=== PATIENT | male | born 1955 | race Caucasian/White ===

== ENCOUNTER 2020-06-13 17:40 | Inpatient (IN) | payer MEDICARE, OTHER, SELFPAY ==
[2020-06-13] VITALS (9 sets, daily range): BP systolic 103–192; BP diastolic 63–111; PULSE 48–130; RESP 14–18; TEMP 36.9–37.1; O2SAT 2–100; BMI 35.9
--- NOTE | 2020-06-13 18:01 | ECG_ITS ---
Test Reason : CHEST PAIN Blood Pressure : / mmHG Vent. Rate : 091 BPM Atrial Rate : 078 BPM P-R Int : 000 ms QRS Dur : 080 ms QT Int : 348 ms P-R-T Axes : 000 070 048 degrees QTc Int : 428 ms Atrial fibrillation Abnormal ECG No previous ECGs available Referred By: Generic ED Physician Electronically Signed By:HERMILO FOX MD
--- NOTE | 2020-06-13 18:01 | XR_ITS ---
EXAMINATION: XR CHEST CLINICAL INFORMATION: Chest pain COMPARISON: None TECHNIQUE: Frontal view of the chest was obtained. FINDINGS: The lungs are mildly hypoexpanded however appear clear. There is mild bronchovascular crowding. No evidence of pleural effusions, pneumothorax or pulmonary edema. Cardiac mediastinal silhouette is within normal limits for technique. The regional skeleton is intact. Degenerative changes are noted in the mid to lower thoracic spine. Visualized upper abdomen is unremarkable. Multiple tubings are noted projecting over the lower neck, recommend clinical correlation. Multiple cardiac leads and wires overlie the chest. XR/XR chest 1V IMPRESSION: Mildly hypoexpanded lungs with bronchovascular crowding. No acute pulmonary process.
--- NOTE | 2020-06-13 18:06 | ED.CHESTPAIN ---
HPI - Chest Pain General Chief Complaint: Chest Pain Stated Complaint: CP, NEW AFIB Time Seen by Provider: 06/13/20 18:04 Source: patient Mode of arrival: ambulatory Limitations: no limitations History of Present Illness HPI narrative: This is a 65-year-old male with past medical history significant for hyperlipidemia, hypertension, anxiety disorder, depression, gastroesophageal reflux disease who presents via EMS from home with complaint of chest pain. Onset today feeling like palpitation pressure in the chest. EMS found patient to be in rapid AFib with RVR he was given 324 aspirin and and transferred to the emergency room. MD complaint: chest heaviness Prior episodes: No Onset: during rest Pain radiation: none Severity: moderate Quality: tightness Relieving factors: nothing Exacerbating factors: nothing Treatment prior to arrival: aspirin Risk Factors Coronary artery disease risk factors: none Related Data Home Medications Medication Instructions Recorded Confirmed bupropion HCl 1 tab PO DAILY 06/13/20 06/13/20 omeprazole 1 cap PO DAILY 06/13/20 06/13/20 propranolol 1 cap PO DAILY 06/13/20 06/13/20 simvastatin 1 tab PO DAILY 06/13/20 06/13/20 tizanidine 1 tab PO BID 06/13/20 06/13/20 Allergies Allergy/AdvReac Type Severity Reaction Status Date / Time metronidazole [From Flagyl] AdvReac Confusion Verified 06/13/20 17:59 Review of Systems Review of Systems: Constitutional: No Weight loss, No Fever, No Chills, No Night Sweats, No Fatigue, No Malaise ENT/Mouth: No Hearing loss, No Ear Pain, No Nasal Congestion, No Sinus Pain, No Hoarseness, No sore throat, No Rhinorrhea, No Swallowing Difficulty Eyes: No Eye Pain, No Swelling, No Redness, No Foreign Body, No Discharge, No Vision Changes Cardiovascular: + Chest Pain, + SOB, No Dyspnea on Exertion, No Orthopnea, No Edema, No Palpitations Respiratory: No Cough, No Sputum, No Wheezing, No Smoke Exposure, No Dyspnea Gastrointestinal: No Nausea, No Vomiting, No Diarrhea, No Constipation, No abdominal Pain, No Hematochezia, No Melena Genitourinary: no irregular bleeding, No Dysuria, No Urinary Frequency, No Hematuria, No Urinary Incontinence, No Urgency, No Flank Pain Musculoskeletal: No joint pain, No Myalgias, No Joint Swelling Skin: No Skin Lesions, No rash Neuro: No Weakness, No Numbness, No Paresthesias, No Loss of Consciousness, No Dizziness, No Headache Psych: No Social Issues Heme/Lymph: No Bruising, No Bleeding,No Lymphadenopathy Endocrine: No Polyuria, No Polydipsia, No Temperature Intolerance [facility] Past Medical History Medical History Diverticulitis HTN (hypertension) Social History Social History Alcohol intake: never Smoking Status: Never smoker Use of substances other than those prescribed or required for medical reasons: Yes Substance Use Type: Marijuana Substance Use Frequency: Daily Advance Directives: No Advance Directives Information Provided: No Physical Exam Vital Signs: Vital Signs: Last Vital Signs Temp 98.7 F 06/13/20 17:48 Pulse 60 06/13/20 20:00 Resp 14 06/13/20 20:00 BP 119/63 06/13/20 20:00 Pulse Ox 97 06/13/20 20:00 Body Mass Index 35.9 Reviewed Const: General: cooperative and healthy appearing; No acute distress or intoxicated appearing Nutritional Appearance: obese Orientation/consciousness: patient oriented x3 HENMT: Head: Yes normal to inspection Ears: hearing grossly normal bilaterally Eyes: General: appearance normal, both eyes and all related structures Visual Abernathy: normal visual abernathy by confrontation Neck: Neck: Yes normal visual inspection and No tender Thyroid: Thyroid normal Chest: Chest palpation & inspection: normal inspection of the chest Resp: Effort & Inspection: normal respiratory effort Cardio: Jugular venous distension: no JVD Rhythm: abnormal rhythm (AFib with RVR rate varying from 120-150) GI: Inspection: Yes normal to inspection Palpation (GI): Soft to palpation Percussion: Yes normal to percussion Auscultation: normal bowel sounds : General: Yes no CVA tenderness Back/Spine/Pelvis: Back: no CVA tenderness Skin: General skin exam: no rashes or lesions noted Neuro: General: patient oriented x3 Extrem: General: Yes normal to inspection Course Course Course Narrative: 65-year-old male with above history presenting with complaint of chest pain that is described as pressure-like with palpitation type sensation in the chest found to be in rapid AFib with RVR rate varying from 120 to 150s. He was given 324 aspirin by EMS and Zofran for nausea. Upon arrival AFib with RVR varying. Will give 5 mg of metoprolol and check labs including EKG, electrolytes for derangement, thyroid, D-dimer and COVID-19. Reevaluation(s) Reevaluation #1: 20 minutes after metoprolol does break sterile varying given Cardizem 10 mg IV and subsequently started on drip. Reevaluation #2: CBC with slight leukocytosis 12.8 without any evidence of infectious process. D-dimer negative less than 200. BNP negative. Troponin initial 16. EKG AFib with nonspecific findings. Otherwise magnesium within normal limits. Renal function at baseline. Sodium/potassium within normal limits. Rate better controlled on Cardizem drip. COVID-19 pending. Chest x-ray negative. Plan for admission. Reevaluation #3: About 1 hour on the Cardizem drip patient converted into normal sinus rhythm EKG shows normal sinus rhythm with rate of 64, no ectopy. No acute ST segment changes. Consultations Consultation #1: Case discussed with hospitalist Dr. Mai for admission. MDM - Chest Pain Medical Records Data Attestation: I reviewed the patient's medical records. Lab Data Attestation: I reviewed the patient's lab results. Result diagrams: 06/13/20 18:34 06/13/20 18:34 Labs: Lab Results 06/13/20 06/13/20 06/13/20 Range/Units 18:34 18:34 18:34 WBC 12.8 H (4.8-10.8) X10*3/uL RBC 5.46 (4.60-5.80) X10*6/uL Hgb 16.5 (14.0-18.0) g/dl Hct 49.8 (42-52) % MCV 91.2 (80-98) fL MCH 30.2 (27.0-33.0) pg MCHC 33.1 (31.0-36.0) g/dl RDW 12.9 (11.0-16.0) % Plt Count 234 (160-400) X10*3/uL MPV 10.4 (9.4-12.4) fL Immature Gran % (Auto) 0.4 (0.0-0.4) % Neut % (Auto) 82.7 H (45-73) % Lymph % (Auto) 9.1 L (20-40) % [place] % (Auto) 4.5 (2-11) % Eos % (Auto) 2.9 (0-4) % Baso % (Auto) 0.4 (0-2) % Lymph # (Auto) 1.2 (1.2-4.9) X10*3/uL [place] # (Auto) 0.6 (0.1-1.2) X10*3/uL Eos # (Auto) 0.4 (0.0-0.4) X10*3/uL Baso # (Auto) 0.1 (0.0-0.2) X10*3/uL Abs Immat Gran (auto) 0.05 H (0.00-0.03) X10*3/uL Absolute Neuts (auto) 10.5 H (2.0-8.3) X10*3/uL Absolute Nucleated RBC 0.000 (0.0-0.012) X10*3/uL Nucleated RBC % (auto) 0.0 (0.0-0.2) /100WBC PT (10.8-13.0) SEC INR (0.9-1.1) APTT (24.1-38.0) SEC D-Dimer NG/ML Hold Blue Top SEE NOTE Sodium 141 (135-145) mmol/L Potassium 3.9 (3.3-5.1) mmol/l Chloride 102 (96-108) mmol/L Carbon Dioxide 30 H (22-29) mmol/L Anion Gap 13 (12-20) BUN 21 H (9-16) mg/dL Creatinine 1.42 H (0.5-1.4) mg/dL Estim Creat Clear Calc 65.4 Estimated GFR 50 Random Glucose 125 H (60-115) mg/dL Calcium 9.1 (8.4-10.2) mg/dL Magnesium (1.6-2.6) mg/dL Troponin I High Sens (<3.5-35.0) ng/L B-Natriuretic Peptide (<100) pg/mL TSH (0.32-4.0) uIU/mL Coronavirus (PCR) (Negative) Influenza Type A (PCR) (Negative) Influenza Type B (PCR) (Negative) RSV RNA Qual (PCR) (Negative) 06/13/20 06/13/20 06/13/20 Range/Units 18:34 18:34 18:34 WBC (4.8-10.8) X10*3/uL RBC (4.60-5.80) X10*6/uL Hgb (14.0-18.0) g/dl Hct (42-52) % MCV (80-98) fL MCH (27.0-33.0) pg MCHC (31.0-36.0) g/dl RDW (11.0-16.0) % Plt Count (160-400) X10*3/uL MPV (9.4-12.4) fL Immature Gran % (Auto) (0.0-0.4) % Neut % (Auto) (45-73) % Lymph % (Auto) (20-40) % [place] % (Auto) (2-11) % Eos % (Auto) (0-4) % Baso % (Auto) (0-2) % Lymph # (Auto) (1.2-4.9) X10*3/uL [place] # (Auto) (0.1-1.2) X10*3/uL Eos # (Auto) (0.0-0.4) X10*3/uL Baso # (Auto) (0.0-0.2) X10*3/uL Abs Immat Gran (auto) (0.00-0.03) X10*3/uL Absolute Neuts (auto) (2.0-8.3) X10*3/uL Absolute Nucleated RBC (0.0-0.012) X10*3/uL Nucleated RBC % (auto) (0.0-0.2) /100WBC PT 12.2 (10.8-13.0) SEC INR 1.0 (0.9-1.1) APTT 34.6 (24.1-38.0) SEC D-Dimer < 200 NG/ML Hold Blue Top Sodium (135-145) mmol/L Potassium (3.3-5.1) mmol/l Chloride (96-108) mmol/L Carbon Dioxide (22-29) mmol/L Anion Gap (12-20) BUN (9-16) mg/dL Creatinine (0.5-1.4) mg/dL Estim Creat Clear Calc Estimated GFR Random Glucose (60-115) mg/dL Calcium (8.4-10.2) mg/dL Magnesium 1.8 (1.6-2.6) mg/dL Troponin I High Sens 16.0 (<3.5-35.0) ng/L B-Natriuretic Peptide (<100) pg/mL TSH 2.20 (0.32-4.0) uIU/mL Coronavirus (PCR) (Negative) Influenza Type A (PCR) (Negative) Influenza Type B (PCR) (Negative) RSV RNA Qual (PCR) (Negative) 06/13/20 06/13/20 06/13/20 Range/Units 18:34 19:36 19:56 WBC (4.8-10.8) X10*3/uL RBC (4.60-5.80) X10*6/uL Hgb (14.0-18.0) g/dl Hct (42-52) % MCV (80-98) fL MCH (27.0-33.0) pg MCHC (31.0-36.0) g/dl RDW (11.0-16.0) % Plt Count (160-400) X10*3/uL MPV (9.4-12.4) fL Immature Gran % (Auto) (0.0-0.4) % Neut % (Auto) (45-73) % Lymph % (Auto) (20-40) % [place] % (Auto) (2-11) % Eos % (Auto) (0-4) % Baso % (Auto) (0-2) % Lymph # (Auto) (1.2-4.9) X10*3/uL [place] # (Auto) (0.1-1.2) X10*3/uL Eos # (Auto) (0.0-0.4) X10*3/uL Baso # (Auto) (0.0-0.2) X10*3/uL Abs Immat Gran (auto) (0.00-0.03) X10*3/uL Absolute Neuts (auto) (2.0-8.3) X10*3/uL Absolute Nucleated RBC (0.0-0.012) X10*3/uL Nucleated RBC % (auto) (0.0-0.2) /100WBC PT (10.8-13.0) SEC INR (0.9-1.1) APTT (24.1-38.0) SEC D-Dimer NG/ML Hold Blue Top Sodium (135-145) mmol/L Potassium (3.3-5.1) mmol/l Chloride (96-108) mmol/L Carbon Dioxide (22-29) mmol/L Anion Gap (12-20) BUN (9-16) mg/dL Creatinine (0.5-1.4) mg/dL Estim Creat Clear Calc Estimated GFR Random Glucose (60-115) mg/dL Calcium (8.4-10.2) mg/dL Magnesium (1.6-2.6) mg/dL Troponin I High Sens 26.0 D (<3.5-35.0) ng/L B-Natriuretic Peptide 49 (<100) pg/mL TSH (0.32-4.0) uIU/mL Coronavirus (PCR) NEGATIVE (Negative) Influenza Type A (PCR) NEGATIVE (Negative) Influenza Type B (PCR) NEGATIVE (Negative) RSV RNA Qual (PCR) NEGATIVE (Negative) ECG Data ECG #1: Interpretation: EKG 1. Atrial fibrillation rate [address] segment QT interval within normal limits. EKG 2. Normal sinus rhythm Rate 64 MO interval within normal limits QT/QTC within normal limits. No acute ST segment changes. Scores Additional Scores CHADS2 score; 1 : Score: 1 Comment: 1 points Intermediate risk of thromboembolic event. 2.8% risk of event per year if no coumadin. The adjusted stroke rate was the expected stroke rate per 100 person-years derived from the multivariable model assuming that aspirin was not taken Discharge Plan Discharge Clinical Impression: Atrial fibrillation with rapid ventricular response Patient Disposition: Admitted As Inpatient Prescriptions: No Action bupropion HCl 150 mg tablet sustained-release 12 hr 1 tab PO DAILY RF: 0 tizanidine 4 mg tablet 1 tab PO BID RF: 0 simvastatin 40 mg tablet 1 tab PO DAILY RF: 0 omeprazole 20 mg capsule,delayed release(DR/EC) 1 cap PO DAILY RF: 0 propranolol 120 mg capsule,extended release 24 hr 1 cap PO DAILY RF: 0
[2020-06-13] MEDS: Metoprolol Tartrate 5 MG/5 ML VIAL IVPUSH (18:13)
[2020-06-13 18:40] LABS: MANUAL DIFF FLAG NO
[2020-06-13 18:43] LABS: Basophils Absolute Auto 0.1 X10*3/uL (0.0-0.2); Basophils Percent Auto 0.4 % (0-2); Eosinophils Absolute Auto 0.4 X10*3/uL (0.0-0.4); Eosinophils Percent Auto 2.9 % (0-4); Hematocrit 49.8 % (42-52); Hemoglobin 16.5 g/dl (14.0-18.0); Imm Gran Abs Auto 0.05 X10*3/uL (0.00-0.03); Imm Gran Pct Auto 0.4 % (0.0-0.4); Lymphocytes Absolute Auto 1.2 X10*3/uL (1.2-4.9); Lymphocytes Percent Auto 9.1 % (20-40); Mean Corpuscular HGB Conc 33.1 g/dl (31.0-36.0); Mean Corpuscular Hemoglobin 30.2 pg (27.0-33.0); Mean Corpuscular Volume 91.2 fL (80-98); Mean Platelet Volume 10.4 fL (9.4-12.4); Monocytes Absolute Auto 0.6 X10*3/uL (0.1-1.2); Monocytes Percent Auto 4.5 % (2-11); Neutrophils Absolute Auto 10.5 X10*3/uL (2.0-8.3); Neutrophils Percent Auto 82.7 % (45-73); Platelet Count 234 X10*3/uL (160-400); Red Blood Count 5.46 X10*6/uL (4.60-5.80); Red Cell Distribution Width 12.9 % (11.0-16.0); White Blood Count 12.8 X10*3/uL (4.8-10.8)
[2020-06-13] MEDS: Morphine Sulfate 4 MG/ML CARTRIDGE IVPUSH (18:43)
[2020-06-13] MEDS: dilTIAZem HCL 50 MG/10 ML VIAL 20 MG IVPUSH (18:44)
[2020-06-13] MEDS: dilTIAZem HCL 125 MG in 0.9 % Sodium Chloride 100 ML 10 MG IVCONT (18:45)
[2020-06-13 18:52] LABS: Prothrombin Time 12.2 SEC (10.8-13.0)
[2020-06-13 18:55] LABS: D Dimer < 200 NG/ML; Partial Thromboplastin Time 34.6 SEC (24.1-38.0)
[2020-06-13 19:03] LABS: Anion Gap 13 (12-20); Blood Urea Nitrogen 21 mg/dL (9-16); Calcium 9.1 mg/dL (8.4-10.2); Carbon Dioxide 30 mmol/L (22-29); Chloride 102 mmol/L (96-108); Creatinine Clr Calc Pharmacy 65.4; Estimated Glomerular Filt Rate 50; Glucose Random 125 mg/dL (60-115); Potassium 3.9 mmol/l (3.3-5.1); Sodium 141 mmol/L (135-145)
[2020-06-13 19:04] LABS: Magnesium 1.8 mg/dL (1.6-2.6)
[2020-06-13 19:10] LABS: B Type Natriuretic Peptide 49 pg/mL (<100)
--- NOTE | 2020-06-13 19:31 | PC.NURSE ---
Patient's heart rate in the 60's and 50's . MD aware and diltiazem drip held.
[2020-06-13 20:20] LABS: Influenza A PCR NEGATIVE (Negative); Influenza B PCR NEGATIVE (Negative); Resp Syncy Virus RNA Qual PCR NEGATIVE (Negative); SARS COV2 PCR INHOUSE NEGATIVE (Negative)
--- NOTE | 2020-06-13 20:46 | P.HPHOSP_ITS ---
History of Present Illness Date of Service: 06/13/20 Chief Complaint: Chest pain With past medical history of hypertension, hyperlipidemia, anxiety and depression, GERD and diverticulitis who presents to the hospital with complaints of chest pain. Patient reports chest pain is midsternal, pressure-like, 8/10, started around 5:00 p.m., radiating to the upper middle back, associated with shortness of breath, and chest flutters. He denies having any previous similar episode, reports being at rest when this occurred. On arrival to the ED patient's vitals are significant for a heart rate that ranged from 100-122, blood pressure 175/99, respiratory rate of 18, satting 97% on 2 L of O2 Labs are significant for WBC count of 12.8, hemoglobin of 16.5, hematocrit 49.8,BMP significant for sodium of 141 comes potassium 3.9, BUN of 21, creatinine of 1.4 which is around his baseline, TSH of 2.2, BNP of 49, troponin of 16 that increased to 26 and repeat Patient was started on Cardizem drip in the ED but converted to sinus rhythm with heart rate dropping to 60 after an hour of this. Past medical history: Hypertension, hyperlipidemia, GERD, anxiety and depression, diverticulitis Past surgical history: Colectomy secondary to diverticular perforation Family history: Denies Social history: Comes from home, independent, denies any tobacco alcohol or illicit drugs Review of Systems Review of Systems: Yes all other systems are reviewed and are negative [facility] Medical History (Updated 06/14/20 @ 11:40 by Eric Perkins MD) Anxiety and depression Diverticulitis HTN (hypertension) Hyperlipidemia Paroxysmal atrial fibrillation Social History Household Members: Spouse Housing: House Alcohol intake: never Smoking Status: Former smoker Substance Use Type: Marijuana service: No Meds Allergies Allergy/AdvReac Type Severity Reaction Status Date / Time metronidazole [From Flagyl] AdvReac Confusion Verified 06/13/20 17:59 Home Medications Medication Instructions Recorded Confirmed Type bupropion HCl 1 tab PO DAILY 06/13/20 06/13/20 History omeprazole 1 cap PO DAILY 06/13/20 06/13/20 History propranolol 1 cap PO DAILY 06/13/20 06/13/20 History simvastatin 1 tab PO DAILY 06/13/20 06/13/20 History tizanidine 1 tab PO BID 06/13/20 06/13/20 History Physical Exam Vital Signs and Narrative: Vital Signs: Last Vital Signs Temp 98.7 F 06/13/20 17:48 Pulse 60 06/13/20 20:00 Resp 14 06/13/20 20:00 BP 119/63 06/13/20 20:00 Pulse Ox 97 06/13/20 20:00 Body Mass Index 35.9 Const: General: cooperative and no acute distress Orientation/consciousness: patient oriented x3 Eyes: General: appearance normal, both eyes and all related structures Pupils: Equal, round and reactive pupils present Resp: Effort & Inspection: normal respiratory effort and able to speak in complete sentences Cardio: Rate: regular rate Rhythm: regular rhythm GI: Palpation (GI): Soft to palpation Auscultation: normal bowel sounds Skin: General skin exam: no rashes or lesions noted Neuro: General: patient oriented x3 Cranial nerves: Yes Equal, round and reactive pupils present Cognition (Neuro): normal cognition Extrem: General: Yes normal to inspection and Yes no pedal edema Results Labs CBC and Chem 7: 06/14/20 04:28 06/14/20 04:28 Labs: Laboratory Results - last 24 hr 06/13/20 06/13/20 06/13/20 18:34 18:34 18:34 MCV 91.2 MCH 30.2 MCHC 33.1 RDW 12.9 Plt Count 234 MPV 10.4 Immature Gran % (Auto) 0.4 Neut % (Auto) 82.7 H Lymph % (Auto) 9.1 L [place] % (Auto) 4.5 Eos % (Auto) 2.9 Baso % (Auto) 0.4 Lymph # (Auto) 1.2 [place] # (Auto) 0.6 Eos # (Auto) 0.4 Baso # (Auto) 0.1 Abs Immat Gran (auto) 0.05 H Absolute Neuts (auto) 10.5 H Absolute Nucleated RBC 0.000 Nucleated RBC % (auto) 0.0 PT INR APTT D-Dimer Hold Blue Top SEE NOTE Anion Gap 13 Estim Creat Clear Calc 65.4 Estimated GFR 50 Random Glucose 125 H Calcium 9.1 Magnesium Troponin I High Sens B-Natriuretic Peptide TSH Coronavirus (PCR) Influenza Type A (PCR) Influenza Type B (PCR) RSV RNA Qual (PCR) 06/13/20 06/13/20 06/13/20 18:34 18:34 18:34 MCV MCH MCHC RDW Plt Count MPV Immature Gran % (Auto) Neut % (Auto) Lymph % (Auto) [place] % (Auto) Eos % (Auto) Baso % (Auto) Lymph # (Auto) [place] # (Auto) Eos # (Auto) Baso # (Auto) Abs Immat Gran (auto) Absolute Neuts (auto) Absolute Nucleated RBC Nucleated RBC % (auto) PT 12.2 INR 1.0 APTT 34.6 D-Dimer < 200 Hold Blue Top Anion Gap Estim Creat Clear Calc Estimated GFR Random Glucose Calcium Magnesium 1.8 Troponin I High Sens 16.0 B-Natriuretic Peptide TSH 2.20 Coronavirus (PCR) Influenza Type A (PCR) Influenza Type B (PCR) RSV RNA Qual (PCR) 06/13/20 06/13/20 06/13/20 18:34 19:36 19:56 MCV MCH MCHC RDW Plt Count MPV Immature Gran % (Auto) Neut % (Auto) Lymph % (Auto) [place] % (Auto) Eos % (Auto) Baso % (Auto) Lymph # (Auto) [place] # (Auto) Eos # (Auto) Baso # (Auto) Abs Immat Gran (auto) Absolute Neuts (auto) Absolute Nucleated RBC Nucleated RBC % (auto) PT INR APTT D-Dimer Hold Blue Top Anion Gap Estim Creat Clear Calc Estimated GFR Random Glucose Calcium Magnesium Troponin I High Sens 26.0 D B-Natriuretic Peptide 49 TSH Coronavirus (PCR) NEGATIVE Influenza Type A (PCR) NEGATIVE Influenza Type B (PCR) NEGATIVE RSV RNA Qual (PCR) NEGATIVE Imaging Radiologist's Impressions: Impressions Chest X-Ray 06/13/20 18:01 IMPRESSION: Mildly hypoexpanded lungs with bronchovascular crowding. No acute pulmonary process. Assessment and Plan (1) Atrial fibrillation with rapid ventricular response: Status: Acute (2) Chest pain: Qualifiers: Chest pain type: unspecified Qualified Code(s): R07.9 - Chest pain, unspecified Status: Acute (3) HTN (hypertension): Qualifiers: Hypertension type: essential hypertension Qualified Code(s): I10 - Essential (primary) hypertension Status: Acute (4) Hyperlipidemia: Qualifiers: Hyperlipidemia type: unspecified Qualified Code(s): E78.5 - Hyperlipidemia, unspecified Status: Acute This is a 65-year-old male with past medical history of hypertension who presents to the hospital with chest pain found to have AFib with RVR # AFib with RVR - new onset, has no history of - chads Vasc of 1 - found to have a heart rate of 122 irregular on arrival - troponin not significantly elevated, no EKG changes suggestive of ACS Plan: - patient on propranolol for hypertension, will stop this medication and start start him on on metoprolol 12.5 b.i.d. - echocardiogram - discussed with patient possible need for anticoagulation, and he is agreeable if necessary - consult cardiology # chest pain - no EKG changes suggestive of ACS - has no significant elevated high sensitivity troponin Plan: - will consult Cardiology, admit to telemetry # hypertension - stable -on propranolol, will stop it, start him on lisinopril # anxiety and depression - continue Wellbutrin # hyperlipidemia - continue statin DVT prophylaxis Lovenox
--- NOTE | 2020-06-13 23:02 | PC.NURSE ---
Telemetry floor called to give report. RN just coming on shift and will call when she is done getting report
--- NOTE | 2020-06-13 23:49 | PC.NURSE ---
Report called to floor and given to Valentina RN assuming care of patient on telemetry
[2020-06-14 00:44] VITALS: BP 166/80; PULSE 51; RESP 18; TEMP 36.6; O2SAT 98
[2020-06-14] MEDS: TiZANidine HCL 4 MG TABLET PO ×2 (01:03→08:39)
[2020-06-14] MEDS: 0.9 % Sodium Chloride Flush 3 ML SYRINGE IVFLUSH ×2 (01:04→08:40)
[2020-06-14] MEDS: Enoxaparin Sodium 40 MG/0.4 ML SYRINGE SUBCUT (01:05)
[2020-06-14 04:00] VITALS: BP 150/78; PULSE 54; RESP 18; TEMP 36.4; O2SAT 98
[2020-06-14] MEDS: Omeprazole 20 MG CAPSULE.DR PO (05:56)
[2020-06-14 06:00] VITALS: BMI 37.5
[2020-06-14 06:00] LABS: MANUAL DIFF FLAG NO
[2020-06-14 06:06] LABS: Basophils Absolute Auto 0.1 X10*3/uL (0.0-0.2); Basophils Percent Auto 0.5 % (0-2); Eosinophils Absolute Auto 0.4 X10*3/uL (0.0-0.4); Hemoglobin 15.8 g/dl (14.0-18.0); Imm Gran Abs Auto 0.04 X10*3/uL (0.00-0.03); Imm Gran Pct Auto 0.4 % (0.0-0.4); Lymphocytes Absolute Auto 1.5 X10*3/uL (1.2-4.9); Lymphocytes Percent Auto 16.2 % (20-40); Mean Corpuscular HGB Conc 32.2 g/dl (31.0-36.0); Mean Corpuscular Volume 93.2 fL (80-98); Mean Platelet Volume 10.8 fL (9.4-12.4); Monocytes Absolute Auto 0.8 X10*3/uL (0.1-1.2); Monocytes Percent Auto 8.3 % (2-11); Neutrophils Absolute Auto 6.5 X10*3/uL (2.0-8.3); Neutrophils Percent Auto 70.6 % (45-73); Platelet Count 206 X10*3/uL (160-400); Red Blood Count 5.26 X10*6/uL (4.60-5.80); White Blood Count 9.2 X10*3/uL (4.8-10.8)
[2020-06-14 06:32] LABS: Anion Gap 14 (12-20); Blood Urea Nitrogen 20 mg/dL (9-16); Calcium 8.5 mg/dL (8.4-10.2); Carbon Dioxide 23 mmol/L (22-29); Chloride 110 mmol/L (96-108); Creatinine Clr Calc Pharmacy 76.6; Estimated Glomerular Filt Rate 59; Glucose Random 87 mg/dL (60-115); Potassium 4.5 mmol/l (3.3-5.1); Sodium 142 mmol/L (135-145)
[2020-06-14 08:00] VITALS: BP 188/96; PULSE 48; RESP 18; TEMP 37.1; O2SAT 96
[2020-06-14] MEDS: lisinopriL 5 MG TABLET PO (08:39)
[2020-06-14] MEDS: buPROPion HCl XL 150 MG TAB.ER.24H PO (08:39)
--- NOTE | 2020-06-14 10:36 | ECG_ITS ---
Test Reason : CHEST PAIN Blood Pressure : / mmHG Vent. Rate : 064 BPM Atrial Rate : 064 BPM P-R Int : 158 ms QRS Dur : 082 ms QT Int : 398 ms P-R-T Axes : 051 071 063 degrees QTc Int : 410 ms Normal sinus rhythm Normal ECG When compared with ECG of 13-JUN-2020 18:19, Sinus rhythm has replaced Atrial fibrillation Referred By: Eric Perkins Electronically Signed By:ERIC PERKINS MD
[2020-06-14] MEDS: Propranolol HCL LA 60 MG CAP.SA.24H 120 MG PO ×2 (10:52→10:56)
--- NOTE | 2020-06-14 10:54 | P.DS_ITS ---
DS: Providers Provider Date of admission: 06/13/20 21:28 Primary care physician: Jairo Bartlett MD Consults: 06/14/20 00:07 Consult to Cardiology Routine Consulting Provider: Eric Perkins Reason for consultation: new onset A.fob, recommendation on AC Has provider been notified: No DS: Diagnosis Discharge Diagnosis (1) Atrial fibrillation with rapid ventricular response: Status: Acute (2) Chest pain: Status: Acute (3) HTN (hypertension): Status: Acute (4) Hyperlipidemia: Status: Acute DS: Medications Discharge Medications Home Medications: Home Medications Medication Instructions Recorded Confirmed bupropion HCl 1 tab PO DAILY 06/13/20 06/13/20 omeprazole 1 cap PO DAILY 06/13/20 06/13/20 propranolol 1 cap PO DAILY 06/13/20 06/13/20 simvastatin 1 tab PO DAILY 06/13/20 06/13/20 tizanidine 1 tab PO BID 06/13/20 06/13/20 Previous Rx's Medication Instructions Recorded rivaroxaban [Xarelto] 20 mg PO DAILY@1700 #30 tab 06/14/20 DS: Summary Hospital Course Hospital Course: pateint was admitted for new onset afib with rvr. he converted to NSR/sinus myesha, after cardizem. he was seen by cardiology who recommended continuing propanolol, starting xarelto, and following up outpatient for work up. Time Spent with Patient Time attestation: Total time spent providing and/or coordinating discharge services: Physical Exam Vital Signs: Vital Signs: Last Vital Signs Temp 98.7 F 06/14/20 08:00 Pulse 48 L 06/14/20 08:00 Resp 18 06/14/20 08:00 BP 188/96 H 06/14/20 08:00 Pulse Ox 96 06/14/20 08:00 Body Mass Index 37.5 General: AO X 3, no acute distress Resp: CTA bilateral CVS: S1,S2,RRR GI: soft, non tender, non distended Neuro: motor grossly intact Psych: appropriate affect DS: Data Data Completed and Pending Labs on day of discharge: 06/13/20 18:01 ECG 12 lead EKG Stat EKG Documentation DIRECTED XR chest 1V Stat 06/13/20 18:08 Metoprolol Tartrate [Lopressor] 5 mg IVPUSH ONCE ONE 06/13/20 18:31 Morphine Sulfate 4 mg IVPUSH ONCE ONE 06/13/20 18:32 dilTIAZem HCL [Cardizem] 20 mg IVPUSH ONCE ONE 06/13/20 18:34 B Type Natriuretic Peptide Stat Basic Metabolic Panel Stat Complete Blood Count Auto Diff Stat D Dimer Stat Hold Lt Blue - Possible Coag Stat Magnesium Stat Partial Thromboplastin Time Stat Prothrombin Time INR Stat Thyroid Stimulating Hormone Stat Troponin-I High Sensitivity Stat 06/13/20 18:38 dilTIAZem HCL [Cardizem] 125 mg IVCONT .STK-MED ONE 06/13/20 19:36 SARS-CoV2/FLU/RSV Stat 06/13/20 19:56 Troponin-I High Sensitivity Stat 06/13/20 20:39 Transfer Order Routine 06/14/20 01:00 Enoxaparin Sodium [Lovenox] 40 mg SUBCUT Q24H 06/14/20 04:28 Basic Metabolic Panel Routine Complete Blood Count Auto Diff Routine Laboratory Last Values WBC 9.2 X10*3/uL (4.8-10.8) 06/14/20 04:28 RBC 5.26 X10*6/uL (4.60-5.80) 06/14/20 04:28 Hgb 15.8 g/dl (14.0-18.0) 06/14/20 04:28 Hct 49.0 % (42-52) 06/14/20 04:28 MCV 93.2 fL (80-98) 06/14/20 04:28 MCH 30.0 pg (27.0-33.0) 06/14/20 04:28 MCHC 32.2 g/dl (31.0-36.0) 06/14/20 04:28 RDW 13.0 % (11.0-16.0) 06/14/20 04:28 Plt Count 206 X10*3/uL (160-400) 06/14/20 04:28 MPV 10.8 fL (9.4-12.4) 06/14/20 04:28 Immature Gran % (Auto) 0.4 % (0.0-0.4) 06/14/20 04:28 Neut % (Auto) 70.6 % (45-73) 06/14/20 04:28 Lymph % (Auto) 16.2 % (20-40) L 06/14/20 04:28 [place] % (Auto) 8.3 % (2-11) 06/14/20 04:28 Eos % (Auto) 4.0 % (0-4) 06/14/20 04:28 Baso % (Auto) 0.5 % (0-2) 06/14/20 04:28 Lymph # (Auto) 1.5 X10*3/uL (1.2-4.9) 06/14/20 04:28 [place] # (Auto) 0.8 X10*3/uL (0.1-1.2) 06/14/20 04:28 Eos # (Auto) 0.4 X10*3/uL (0.0-0.4) 06/14/20 04:28 Baso # (Auto) 0.1 X10*3/uL (0.0-0.2) 06/14/20 04:28 Abs Immat Gran (auto) 0.04 X10*3/uL (0.00-0.03) H 06/14/20 04:28 Absolute Neuts (auto) 6.5 X10*3/uL (2.0-8.3) 06/14/20 04:28 Absolute Nucleated RBC 0.000 X10*3/uL (0.0-0.012) 06/14/20 04:28 Nucleated RBC % (auto) 0.0 /100WBC (0.0-0.2) 06/14/20 04:28 PT 12.2 SEC (10.8-13.0) 06/13/20 18:34 INR 1.0 (0.9-1.1) 06/13/20 18:34 APTT 34.6 SEC (24.1-38.0) 06/13/20 18:34 D-Dimer < 200 NG/ML 06/13/20 18:34 Hold Blue Top SEE NOTE 06/13/20 18:34 Sodium 142 mmol/L (135-145) 06/14/20 04:28 Potassium 4.5 mmol/l (3.3-5.1) 06/14/20 04:28 Chloride 110 mmol/L (96-108) H 06/14/20 04:28 Carbon Dioxide 23 mmol/L (22-29) 06/14/20 04:28 Anion Gap 14 (12-20) 06/14/20 04:28 BUN 20 mg/dL (9-16) H 06/14/20 04:28 Creatinine 1.24 mg/dL (0.5-1.4) 06/14/20 04:28 Estim Creat Clear Calc 76.6 06/14/20 04:28 Estimated GFR 59 06/14/20 04:28 Random Glucose 87 mg/dL (60-115) 06/14/20 04:28 Calcium 8.5 mg/dL (8.4-10.2) D 06/14/20 04:28 Magnesium 1.8 mg/dL (1.6-2.6) 06/13/20 18:34 Troponin I High Sens 26.0 ng/L (<3.5-35.0) D 06/13/20 19:56 B-Natriuretic Peptide 49 pg/mL (<100) 06/13/20 18:34 TSH 2.20 uIU/mL (0.32-4.0) 06/13/20 18:34 Coronavirus (PCR) NEGATIVE (Negative) 06/13/20 19:36 Influenza Type A (PCR) NEGATIVE (Negative) 06/13/20 19:36 Influenza Type B (PCR) NEGATIVE (Negative) 06/13/20 19:36 RSV RNA Qual (PCR) NEGATIVE (Negative) 06/13/20 19:36 Discharge Plan Discharge Patient Disposition: Home, Self-Care Referrals: Jairo Bartlett MD [Primary Care Provider] - Discharge Medications: New Xarelto 20 mg Tablet 20 mg PO DAILY@1700 Qty: 30 RF: 0 Continued bupropion HCl 150 mg tablet sustained-release 12 hr 1 tab PO DAILY RF: 0 tizanidine 4 mg tablet 1 tab PO BID RF: 0 simvastatin 40 mg tablet 1 tab PO DAILY RF: 0 omeprazole 20 mg capsule,delayed release(DR/EC) 1 cap PO DAILY RF: 0 propranolol 120 mg capsule,extended release 24 hr 1 cap PO DAILY RF: 0 Discharge Orders: Discharge Order (Routine); Ordered 06/14/20 Ordered By: Jayant Herzog Activity on Discharge: As tolerated Visit Report Forms: Patient Portal Discharge page Care Plan Goals: manage afib Health Concerns: afib Plan of Treatment: started on xarelto, follow up with cardiology for work up
[2020-06-14] MEDS: Rivaroxaban 20 MG TABLET PO (10:56)
--- NOTE | 2020-06-14 11:04 | PC.NURSE ---
inderol given per Dr Perkins. Also started on xarelto.
--- NOTE | 2020-06-14 11:05 | MHC.CM.PN ---
MET WITH PT DC PLAN HOPME NO SERVCEIS PT HAS OWN TRANSPORT HOME
--- NOTE | 2020-06-14 11:34 | PM.CNCAR ---
History of Present Illness History of Present Illness Date of Service: 06/14/20 Consult reason: chest pain and atrial fibrillation Chief complaint: New onset A fib Narrative: Thank you for inviting us on consult on Gene for new onset atrial fibrillation. He is a pleasant active 65-year-old man with prior history of hypertension, hyperlipidemia. He came to the hospital, yesterday while he was walking to get his medication which is forgot to take today prior for hypertension hyperlipidemia he started noticing chest tightness and palpitations. He has had these symptoms but for short duration the past never chest tightness but palpitations. He has not been worked up for anything. Yesterday the symptoms did not relieve and he came to the hospital. Was noted to be in atrial fibrillation with rapid ventricular response. Troponins were within normal limits and BNP was within normal limits. Overnight he converted back to sinus rhythm. He feels a lot better. EKG did not show any significant ischemic EKG changes on repeat EKG this morning. He was noted to be also significantly hypertensive on presentation. He says that he takes his medications usually does not forget but he forgot to take his propranolol on . His does claim that he does snore a lot. He does have daytime somnolence. He cannot exercise much due to ankle surgery about 9 years ago. 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 He has no history of diabetes. No history of prior coronary artery disease. Review of Systems Constitutional: Constitutional: Denies body ache(s), Denies chills, Denies fever(s), Reports snoring and Reports stops breathing during sleep Eyes: Eyes: Reports no additional eye complaints ENT: Reports system reviewed and no additional complaints, except as documented Cardiovascular: Cardiovascular: Reports chest pain, Denies pedal edema, Denies lightheadedness, Denies Loss of Consciousness, Reports palpitations and Denies dyspnea Respiratory: Respiratory: Denies cough, Denies dyspnea and Reports snoring Gastrointestinal: Gastrointestinal: Reports no additional gastrointestinal complaints Genitourinary: Genitourinary: Reports no additional male genitourinary complaints Musculoskeletal: Musculoskeletal: Reports no additional musculoskeletal complaints Neurologic: Reports system reviewed and no additional complaints, except as documented Psychiatric: Psychiatric: Reports no additional psychiatric complaints Endocrine: Endocrine: Reports no additional endocrine complaints and Reports palpitations PMFSH Past Medical History Medical History Anxiety and depression Diverticulitis HTN (hypertension) Hyperlipidemia Social History Social History Household Members: Spouse Housing: House Do you presently have visiting nurse or other home services: No Alcohol intake: never Smoking Status: Former smoker Smoked in Last 30 Days: No Smoking Quit Date: quit in 2002 Use of substances other than those prescribed or required for medical reasons: Yes Substance Use Type: Marijuana Substance Use Frequency: Daily Last Used Substance: Hours (ago) Currently Displaying Signs/Symptoms of Drug Intoxication Withdrawal: No Have you been hit, kicked, punched, or otherwise hurt by someone within the past year? If so, by whom?: No Do you feel safe in your current relationship?: Yes Is there a partner from a previous relationship who is making you feel unsafe now?: No Are you made to feel afraid or neglected: No Advance Directives: No Advance Directives Information Provided: No Do you have thoughts of harming others: None Do you have a plan to hurt others: No Plan Recently lost weight without trying: No service: No Meds Allergies Allergy/AdvReac Type Severity Reaction Status Date / Time metronidazole [From Flagyl] AdvReac Confusion Verified 06/13/20 17:59 Home Medications Medication Instructions Recorded Confirmed Type bupropion HCl 1 tab PO DAILY 06/13/20 06/13/20 History omeprazole 1 cap PO DAILY 06/13/20 06/13/20 History propranolol 1 cap PO DAILY 06/13/20 06/13/20 History simvastatin 1 tab PO DAILY 06/13/20 06/13/20 History tizanidine 1 tab PO BID 06/13/20 06/13/20 History Physical Exam Vital Signs: Vital Signs: Last Vital Signs Temp 98.7 F 06/14/20 08:00 Pulse 48 L 06/14/20 08:00 Resp 18 06/14/20 08:00 BP 188/96 H 06/14/20 08:00 Pulse Ox 96 06/14/20 08:00 Body Mass Index 37.5 Const: General: cooperative, comfortable, no acute distress, alert and awake Nutritional Appearance: obese Orientation/consciousness: patient oriented x3 Limitations: no limitations HENMT: Head: Yes normocephalic and Yes atraumatic Eyes: General: appearance normal, both eyes and all related structures Neck: Neck: Yes trachea midline, Yes supple, Yes no JVD and Yes prominent supraclavicular fat pad Chest: Chest palpation & inspection: normal inspection of the chest Resp: Effort & Inspection: normal respiratory effort Auscultation: clear to auscultation bilaterally Cardio: Jugular venous distension: no JVD Palpation: normal PMI Rate: regular rate Rhythm: regular rhythm Heart sounds: S1 normal heart sound present, S2 normal heart sound present and Other heart sounds present (S4 present) GI: Inspection: Yes obesity Auscultation: normal bowel sounds Skin: General skin exam: no rashes or lesions noted Neuro: General: patient oriented x3 and no focal motor deficits Extrem: General: Yes no clubbing, cyanosis or edema Psych: Appearance: grossly normal Results Labs and Meds Result diagrams: 06/14/20 04:28 06/14/20 04:28 Lab results: Laboratory Results - last 24 hr 06/13/20 06/13/20 06/13/20 18:34 18:34 18:34 WBC 12.8 H RBC 5.46 Hgb 16.5 Hct 49.8 MCV 91.2 MCH 30.2 MCHC 33.1 RDW 12.9 Plt Count 234 MPV 10.4 Immature Gran % (Auto) 0.4 Neut % (Auto) 82.7 H Lymph % (Auto) 9.1 L [place] % (Auto) 4.5 Eos % (Auto) 2.9 Baso % (Auto) 0.4 Lymph # (Auto) 1.2 [place] # (Auto) 0.6 Eos # (Auto) 0.4 Baso # (Auto) 0.1 Abs Immat Gran (auto) 0.05 H Absolute Neuts (auto) 10.5 H Absolute Nucleated RBC 0.000 Nucleated RBC % (auto) 0.0 PT INR APTT D-Dimer Hold Blue Top SEE NOTE Sodium 141 Potassium 3.9 Chloride 102 Carbon Dioxide 30 H Anion Gap 13 BUN 21 H Creatinine 1.42 H Estim Creat Clear Calc 65.4 Estimated GFR 50 Random Glucose 125 H Calcium 9.1 Magnesium Troponin I High Sens B-Natriuretic Peptide TSH Coronavirus (PCR) Influenza Type A (PCR) Influenza Type B (PCR) RSV RNA Qual (PCR) 06/13/20 06/13/2020 18:34 18:34 18:34 WBC RBC Hgb Hct MCV MCH MCHC RDW Plt Count MPV Immature Gran % (Auto) Neut % (Auto) Lymph % (Auto) [place] % (Auto) Eos % (Auto) Baso % (Auto) Lymph # (Auto) [place] # (Auto) Eos # (Auto) Baso # (Auto) Abs Immat Gran (auto) Absolute Neuts (auto) Absolute Nucleated RBC Nucleated RBC % (auto) PT 12.2 INR 1.0 APTT 34.6 D-Dimer < 200 Hold Blue Top Sodium Potassium Chloride Carbon Dioxide Anion Gap BUN Creatinine Estim Creat Clear Calc Estimated GFR Random Glucose Calcium Magnesium 1.8 Troponin I High Sens 16.0 B-Natriuretic Peptide TSH 2.20 Coronavirus (PCR) Influenza Type A (PCR) Influenza Type B (PCR) RSV RNA Qual (PCR) 06/13/20 06/13/20 06/13/20 18:34 19:36 19:56 WBC RBC Hgb Hct MCV MCH MCHC RDW Plt Count MPV Immature Gran % (Auto) Neut % (Auto) Lymph % (Auto) [place] % (Auto) Eos % (Auto) Baso % (Auto) Lymph # (Auto) [place] # (Auto) Eos # (Auto) Baso # (Auto) Abs Immat Gran (auto) Absolute Neuts (auto) Absolute Nucleated RBC Nucleated RBC % (auto) PT INR APTT D-Dimer Hold Blue Top Sodium Potassium Chloride Carbon Dioxide Anion Gap BUN Creatinine Estim Creat Clear Calc Estimated GFR Random Glucose Calcium Magnesium Troponin I High Sens 26.0 D B-Natriuretic Peptide 49 TSH Coronavirus (PCR) NEGATIVE Influenza Type A (PCR) NEGATIVE Influenza Type B (PCR) NEGATIVE RSV RNA Qual (PCR) NEGATIVE 06/14/20 06/14/20 04:28 04:28 WBC 9.2 RBC 5.26 Hgb 15.8 Hct 49.0 MCV 93.2 MCH 30.0 MCHC 32.2 RDW 13.0 Plt Count 206 MPV 10.8 Immature Gran % (Auto) 0.4 Neut % (Auto) 70.6 Lymph % (Auto) 16.2 L [place] % (Auto) 8.3 Eos % (Auto) 4.0 Baso % (Auto) 0.5 Lymph # (Auto) 1.5 [place] # (Auto) 0.8 Eos # (Auto) 0.4 Baso # (Auto) 0.1 Abs Immat Gran (auto) 0.04 H Absolute Neuts (auto) 6.5 Absolute Nucleated RBC 0.000 Nucleated RBC % (auto) 0.0 PT INR APTT D-Dimer Hold Blue Top Sodium 142 Potassium 4.5 Chloride 110 H Carbon Dioxide 23 Anion Gap 14 BUN 20 H Creatinine 1.24 Estim Creat Clear Calc 76.6 Estimated GFR 59 Random Glucose 87 Calcium 8.5 D Magnesium Troponin I High Sens B-Natriuretic Peptide TSH Coronavirus (PCR) Influenza Type A (PCR) Influenza Type B (PCR) RSV RNA Qual (PCR) First EKG shows atrial fibrillation controlled ventricular response Repeated EKG this morning shows sinus bradycardia Assessment and Plan (1) Paroxysmal atrial fibrillation: Status: Acute Symptomatic atrial fibrillation leading to hospitalization. Paroxysmal in nature. Most likely triggered by his lack of taking propranolol for more than 24 hours causing him to have atrial fibrillation. Underlying structural heart disease most likely secondary to hypertension as well as possibly sleep apnea which is highly likely in him. We discussed at length about pathophysiology of atrial fibrillation in details. Given that he symptomatic would require rhythm control approach in the future. Advise him not to Mrs. propranolol dose. Avoidance of stimulants was discussed. Will require outpatient workup including sleep study, stress test given that he had chest pain with atrial fibrillation as well as echocardiogram to evaluate for structure of the heart and Holter monitor. If has recurrent atrial fibrillation as an outpatient will require rhythm control therapy with antiarrhythmic and/or ablation. This was discussed with him in details. Aggressive weight reduction in long-term will help. Better blood pressure control is also necessary, see below. Can discharge him today with outpatient follow-up. CHADSVASc score of 2. Should be on oral anticoagulation, agree to be started on Xarelto 20 mg daily. (2) HTN (hypertension): Qualifiers: Hypertension type: essential hypertension Qualified Code(s): I10 - Essential (primary) hypertension Status: Acute Uncontrolled high blood pressure. Continue propranolol therapy. Add Norvasc 5 mg to his regimen. Low-salt diet was recommended. Probably underlying undiagnosed sleep apnea and that needs to be worked up. Will follow up in the clinic in 2 weeks time, sooner p.r.n.. Thank you for allowing me to partake in his care
[2020-06-14 12:00] VITALS: BP 185/88; PULSE 53; RESP 18
[2020-06-14] MEDS: amLODIPine Besylate 5 MG TABLET PO (12:03)
== END 2020-06-14 14:23 | disposition home or self-care (01) | DRG 310 ==
LOC: HO.ED 20:44 → HO.IMC 22:36
PROVIDERS: Nurse Practitioner Primary Care; Admitting Provider Internal Medicine; Emergency Provider Emergency Medicine; PCP Internal Medicine; Visit Provider Internal Medicine
DX: I48.0 Paroxysmal atrial fibrillation (principal); E78.5 Hyperlipidemia, unspecified; F41.9 Anxiety disorder, unspecified; F32.9 Major depressive disorder, single episode, unspecified; I10 Essential (primary) hypertension; K21.9 Gastro-esophageal reflux disease without esophagitis; Z20.828 Contact with and (suspected) exposure to other viral communicable diseases; Z79.01 Long term (current) use of anticoagulants; Z79.899 Other long term (current) drug therapy
CPT/HCPCS: 0241U; 36415; 71045; 80048; 83735; 83880; 84443; 84484; 85025; 85379; 85610; 85730; 93005; 96374; 96375; 99285; J1650; J2270

== ENCOUNTER → 2020-06-19 16:30 | Outpatient (REF) | payer MEDICARE, SELFPAY | LOC: HO.CARD 16:30 | PROVIDERS: Visit Provider Internal Medicine Cardiovascular Disease | DX: Z13.89 Encounter for screening for other disorder (principal) ==

== ENCOUNTER → 2020-07-04 07:26 | Outpatient (REF) | payer MEDICARE, OTHER, SELFPAY ==
--- NOTE | 2020-07-04 | NM_ITS ---
Myocardial perfusion study Indication: Atrial fibrillation with abnormal EKG with multiple risk factors to evaluate for myocardial ischemia Technique: The patient was brought in for a Lexiscan perfusion study on 07/04/2020. Patient performed low-level exercise and was injected 0.4 mg of Lexiscan intravenously. Within a minute of injection, 40 mCi of sestamibi was given intravenously. Images were obtained using the SPECT gamma camera interlaced with the gating device. Images were obtained in supine position. Resting perfusion study was performed on 07/07/2020. Patient was administered 40 mCi of sestamibi intravenously at rest. Images were then obtained in supine position. Images obtained with and without CT attenuation. Total DLP 102 mGy-cm. Images were processed with the software and compared side to side in short axis, horizontal long axis and vertical long axis views. Findings: The stress perfusion study showed non attenuated images show mildly reduced uptake in the inferior and moderately reduced uptake in the basal inferior wall of the LV myocardium. Attenuation corrected images show minimally reduced uptake in the apex of the LV myocardium. The gated study shows normal LV systolic function with calculated LVEF of 57%. LV cavity is normal in size. The gated study shows normal systolic wall thickening and contraction of segments. Resting study shows no change in perfusion compared to stress perfusion study. Gating at rest reveals normal systolic wall motion with visually estimated ejection fraction at greater than 60 %. The findings are consistent with normal myocardial perfusion. NM/NM yury perf SPECT rest & str Impression: 1. Myocardial perfusion imaging study shows normal myocardial perfusion 2. Gated LVEF is 57% 3. Transient ischemic dilatation not present EKG is nondiagnostic for ischemia
--- NOTE | 2020-07-04 07:31 | CA_ITS ---
Acquisition Time: 2020-07-04 08:18:20 Total Exercise Time: 00:02:00 Test Indications: Abnormal ECG Medications: XARELTO PROPRANOLOL SIMVASTATIN BUPROPION OMEPRAZOLE Protocol: LEXISCAN Max HR: 088 BPM 56% of Pred: 155 BPM Max BP: 160/110 mmHG Max Work Load: 1.0 METS Pharmacological stress test using Lexiscan while sitting and kicking his feet. Pt tolerated well. Denies any anginal sx. EKG with isolated PAC noon diagnostic for ischemia. Nuclear images to follow. Normotensive response to test. Test reviewed with Dr. Perkins. Referred By: Eric Perkins Overread By: Daniel Briones
--- NOTE | 2020-07-04 07:31 | ECG_ITS ---
Hook-up date: 2020-07-04 09:25:00 Duration: 47:59:00 Test Indications: I48.0 - Paroxysmal atrial fibri Medications: 63989 QRS complexes 465 Ventricular ectopics which represent <1 % of total QRS comp. 204 Supraventricular ectopics which represent <1 % of total QRS comp. * Paced QRS complexs which represent % of total QRS comp. VENTRICULAR ECTOPY 465 Isolated 0 Bigeminal Cycles 0 Couplets 0 Runs 0 Beats in Runs * Beats LONGEST at * BPM at :: -- * Beats FASTEST at * BPM at :: -- SUPRAVENTRICULAR ECTOPY 189 Isolated 1 Couplets 3 Runs 13 Beats in Runs 5 Beats LONGEST at 145 BPM at 21:04:06 2020-07-04 5 Beats FASTEST at 145 BPM at 21:04:06 2020-07-04 HEART RATES 36 MIN at 23:46:40 2020-07-04 52 AVG 91 MAX at 09:52:04 2020-07-04 LONGEST RR 1.9360 secs at 03:59:22 2020-07-05 S-T LEVELS Channel 1 - 128 mm at 09:25:00 2020-07-04 - 128 mm at 09:25:00 2020-07-04 Channel 2 - 128 mm at 09:25:00 2020-07-04 - 128 mm at 09:25:00 2020-07-04 Channel 3 - 128 mm at 02:84:41 -- - 128 mm at 02:84:41 Basic rhythm Normal sinus rhythm No long pauses Frequent Sinus bradycardia , 84% of time HR < 60 bpm Occasional Premature ventricular complexes Occasional Premature atrial complexes No sustained Atrial fibrillation Patient did not report any symptoms in the diary Referred By: Eric Perkins Overread By: ERIC PERKINS MD
--- NOTE | 2020-07-04 07:31 | CA_ITS ---
Transthoracic Echocardiogram Patient (Last, First, Middle): Gene Luis P Gender: Male Date of : 1955 Age: 65 Procedure Date: 07/04/2020 Procedure Type: Transthoracic Echocardiogram Location: OP Height: 175.26 cm Weight: 113.4 kg BSA: 2.27 m2 Heart Rate: bpm BP: 128 / 80 mmHg Lead Customer Service Representative: Referring MD: Eric Perkins MD Training Analyst: Eric Perkins MD Symptoms: I48.0 - Paroxysmal atrial fibrillation Study Quality: Fair ECG Rhythm: Sinus Conclusions: - 1. Normal LV systolic function with grade 1 diastolic dysfunction 2. Normal cardiac valvular Doppler 3. Normal RV systolic pressure 4. No pericardial effusion Findings Left Ventricle Normal left ventricular size, thickness, and systolic function. The visually estimated ejection fraction is between 60-65%. Spectral Doppler is indicative of an impaired relaxation filling pattern. E/E prime ratio is <8, consistent with normal filling pressures. Evidence suggests grade I (mild) diastolic dysfunction. Right Ventricle Normal right ventricular cavity size and systolic function. Atria Both atria are normal in size. Interatrial shunt cannot be excluded. Aortic Valve The aortic valve structure and function is likely normal. There is no aortic valve stenosis. There is no aortic valve regurgitation. Mitral Valve Normal mitral valve structure and function. There is trace mitral valve regurgitation. There is no mitral valve stenosis. Pulmonic Valve The pulmonic valve was not well visualized. Tricuspid Valve Likely normal tricuspid valve structure and function. There is trace tricuspid valve regurgitation. The right ventricular systolic pressure is normal. The right ventricular systolic pressure is 14 mmHg. There is no evidence of pulmonary hypertension. Great Vessels All visible segments of the aorta are normal in size. The pulmonary artery was not well visualized. Venous The inferior vena cava is normal in size and collapses greater than 50% with inspiration. Pericardium/Pleural There is no evidence of pericardial effusion. Prior Study Comparison No prior study available for comparison. Measurements 2D Linear Measurements Ao Root: 3.70 2.1-3.5 cm LVOT Diam: 2.20 3.0+(-)1.3 cm Mitral Valve MV Pk E: 0.69 MV PK A: 0.93 MV Decel Time: 296.00 E/A: 0.70 E'Lateral: 7.93 E'Medial: 7.25 E/E' Med: 9.50 E/E' Lat: 8.70 PHT: 87.00 MVA PHT: 2.53 Decel [place]: 2.33 Aortic Valve AoV Pk El: 1.81 AoV Mn El: 1.09 AoV VTI: 0.42 AoV Pk Grad: 13.00 Aov Mn Grad: 6.00 MEKA Cont.VTI: 2.90 LVOT LVOT Pk El: 1.33 LVOT Mn El: 0.82 LVOT VTI: 0.32 LVOT Pk Grad: 7.00 LVOT Mn Grad: 3.00 LVOT Diam: 2.20 LVOT Area: 3.80 Diastolic Function MV Pk E: 0.69 MV Pk A: 0.93 E/A: 0.70 E'Medial: 7.25 E/E' Med: 9.50 E' Laterial: 7.93 E/E' Lat: 8.70 Tricuspid Valve TR Pk El: 1.65 TR Pk Grad: 11.00 RA Press: 3.00 RVSP: 14.00 Great Vessels Aorta Ao Root-2D: 3.70 2.0-3.7 cm Pulmonary Valve PV Pk El: 0.98 Peak PV Grad: 4.00 Updated in Other Vendor System with Status of Final Eric Perkins MD electronically signed on 07/04/2020 4:32:59 PM with status of Final
== END ==
LOC: HO.CARD 07:26
PROVIDERS: Visit Provider Internal Medicine Cardiovascular Disease
DX: R07.9 Chest pain, unspecified (principal); E78.5 Hyperlipidemia, unspecified; I48.0 Paroxysmal atrial fibrillation
CPT/HCPCS: 78452; 93017; 93225; 93226; 93306; A9500; J0280; J2785

== ENCOUNTER → 2020-07-21 14:32 | Outpatient (BNVA) | payer MEDICARE, SELFPAY | PROVIDERS: PCP Internal Medicine; Visit Provider Internal Medicine Cardiovascular Disease | DX: I48.0 Paroxysmal atrial fibrillation (principal); I10 Essential (primary) hypertension; G47.10 Hypersomnia, unspecified | CPT/HCPCS: 99212 ==

== ENCOUNTER → 2020-07-28 08:47 | Outpatient (REF) | payer MEDICARE, OTHER, SELFPAY | LOC: HO.SL 08:47 | PROVIDERS: Visit Provider Internal Medicine Cardiovascular Disease | DX: G47.10 Hypersomnia, unspecified (principal); I10 Essential (primary) hypertension; I48.0 Paroxysmal atrial fibrillation | CPT/HCPCS: 95806 ==

== ENCOUNTER → 2020-08-14 10:14 | Outpatient (BNVA) | payer MEDICARE, SELFPAY | PROVIDERS: PCP Internal Medicine; Visit Provider Internal Medicine | DX: E66.9 Obesity, unspecified (principal); G47.33 Obstructive sleep apnea (adult) (pediatric) | CPT/HCPCS: 99202 ==

== ENCOUNTER → 2020-09-29 10:49 | Outpatient (BNVA) | payer MEDICARE, SELFPAY | PROVIDERS: PCP Internal Medicine; Visit Provider Internal Medicine | DX: G47.33 Obstructive sleep apnea (adult) (pediatric) (principal); E66.9 Obesity, unspecified; Z68.41 Body mass index [BMI] 40.0-44.9, adult; Z87.891 Personal history of nicotine dependence; Z79.899 Other long term (current) drug therapy; Z71.3 Dietary counseling and surveillance | CPT/HCPCS: 99212 ==

== ENCOUNTER 2020-10-07 12:00 | Outpatient (REF) | payer MEDICARE, SELFPAY ==
--- NOTE | ~2020-10-07 | XR_ITS ---
EXAMINATION: XR KNEE, RIGHT CLINICAL INFORMATION: Right knee pain COMPARISON: None TECHNIQUE: Three views of the right knee. FINDINGS: There is no fracture, dislocation, or destructive process. There is narrowing of the medial knee joint compartment and moderate suprapatellar effusion. There are no erosive changes or chondrocalcinosis. There is spurring at the quadriceps insertion on the patella. Hoffa's fat pad appears normal. There is normal bony mineralization. XR/XR knee RT 3V IMPRESSION: 1. Narrowing medial knee joint compartment with moderate suprapatellar effusion. 2. Spurring at quadriceps insertion patella.
== END 2020-10-07 12:01 | disposition home or self-care (01) ==
LOC: HO.XRAY 12:00
PROVIDERS: PCP Internal Medicine; Visit Provider Physician Assistant
DX: M25.561 Pain in right knee (principal)
CPT/HCPCS: 73562

== ENCOUNTER 2020-10-08 09:34 | Outpatient (REF) | payer MEDICARE, SELFPAY ==
[2020-10-08 11:29] LABS: Alanine Aminotransferase 19 U/L (0-40); Albumin Level 4.3 g/dL (3.5-5.0); Alkaline Phosphatase 130 U/L (39-117); Anion Gap 15 (12-20); Aspartate Amino Transferase 17 U/L (5-37); Bilirubin Total 0.7 mg/dL (0.0-1.0); Blood Urea Nitrogen 15 mg/dL (9-16); Calcium 9.1 mg/dL (8.4-10.2); Carbon Dioxide 26 mmol/L (22-29); Chloride 104 mmol/L (96-108); Estimated Glomerular Filt Rate 52; Glucose Fasting 93 mg/dL (60-99); Potassium 4.8 mmol/L (3.3-5.1); Sodium 140 mmol/L (135-145); Total Protein 6.6 g/dL (6.5-8.0)
== END 2020-10-08 09:35 | disposition home or self-care (01) ==
LOC: HO.MANLDS 09:34
PROVIDERS: PCP Internal Medicine; Visit Provider Physician Assistant
DX: I10 Essential (primary) hypertension (principal)
CPT/HCPCS: 36415; 80053

== ENCOUNTER → 2020-11-12 09:03 | Outpatient (BNVA) | payer MEDICARE, SELFPAY | PROVIDERS: PCP Internal Medicine; Visit Provider Internal Medicine Cardiovascular Disease | DX: Z01.810 Encounter for preprocedural cardiovascular examination (principal); I48.0 Paroxysmal atrial fibrillation | CPT/HCPCS: 93005; 99212 ==

== ENCOUNTER → 2021-01-27 11:28 | Outpatient (BNVA) | payer MEDICARE, SELFPAY | PROVIDERS: PCP Internal Medicine; Visit Provider Internal Medicine | DX: G47.33 Obstructive sleep apnea (adult) (pediatric) (principal); E66.9 Obesity, unspecified | CPT/HCPCS: 99212 ==

== ENCOUNTER → 2021-05-18 08:56 | Outpatient (BNVA) | payer MEDICARE, SELFPAY | PROVIDERS: PCP Internal Medicine; Visit Provider Internal Medicine Cardiovascular Disease | DX: I48.0 Paroxysmal atrial fibrillation (principal); I10 Essential (primary) hypertension | CPT/HCPCS: 99212 ==

== ENCOUNTER → 2021-08-11 09:20 | Outpatient (BNVA) | payer MEDICARE, SELFPAY | PROVIDERS: PCP Internal Medicine; Visit Provider Internal Medicine | DX: E66.9 Obesity, unspecified (principal); G47.33 Obstructive sleep apnea (adult) (pediatric); Z68.35 Body mass index [BMI] 35.0-35.9, adult | CPT/HCPCS: 99212 ==

== ENCOUNTER → 2022-03-09 08:59 | Outpatient (BNVA) | payer MEDICARE, SELFPAY | PROVIDERS: PCP Internal Medicine; Visit Provider Internal Medicine | DX: G47.33 Obstructive sleep apnea (adult) (pediatric) (principal); E66.9 Obesity, unspecified; Z68.34 Body mass index [BMI] 34.0-34.9, adult | CPT/HCPCS: 99212 ==

== ENCOUNTER → 2022-03-11 08:28 | Outpatient (REF) | payer MEDICARE, SELFPAY ==
--- NOTE | 2022-03-11 08:33 | CA_ITS ---
Transthoracic Echocardiogram Patient (Last, First, Middle): Gene Luis P Gender: Male Date of : 1955 Age: 67 Procedure Date: 03/11/2022 Procedure Type: Transthoracic Echocardiogram Location: OP Height: 175.26 cm Weight: 104.33 kg BSA: 2.19 m2 Heart Rate: 45 bpm BP: 145 / 95 mmHg Manager Staffing: ARABELLA Referring MD: Eric Perkins MD Symptoms: I48.0 - Paroxysmal atrial fibrillation Study Quality: Adequate ECG Rhythm: Bradycardia Conclusions: - The left ventricular systolic function is normal. The calculated ejection fraction is 60% by biplane method. - No obvious valvular pathology seen on this study. Findings Left Ventricle Normal left ventricular cavity size. There is mildly increased left ventricular wall thickness. The left ventricular systolic function is normal. The calculated ejection fraction is 60% by biplane method. There is no evidence of regional wall motion abnormalities. Moderate focal hypertrophy of the basal septum. LV peak GLS -19.8%. Right Ventricle Normal right ventricular cavity size and systolic function. Atria Both atria are normal in size. Aortic Valve There is a normal trileaflet aortic valve. There is no aortic valve stenosis. There is no aortic valve regurgitation. Mitral Valve The mitral valve appears normal. There is no mitral valve regurgitation. There is no mitral valve stenosis. Pulmonic Valve The pulmonic valve is likely normal. Tricuspid Valve There is trace tricuspid valve regurgitation. Borderline pulmonary artery systolic pressure. Great Vessels The asc aorta is normal in size. Venous The inferior vena cava is normal in size and collapses less than 50% with inspiration. Pericardium/Pleural There is no evidence of pericardial effusion. Prior Study Comparison No significant change compared to prior study dated: 07/04/2020. Recommendations, Care & Conclusions No obvious valvular pathology seen on this study. Measurements 2D Linear Measurements IVSd: 1.39 0.6-0.9/0.6-1.0 cm LVIDd: 4.63 3.9-5.3/4.2-5.9 cm LVIDd Index: 2.11 2.4-3.2/2.2-3.1 cm/m2 LVIDs: 2.62 2.0-3.6 cm LVPWd: 1.26 0.7-1.1 cm LA Diam: 4.40 2.7-3.8/3.0-4.0 cm LAIDs Index: 2.01 1.5-2.3 cm/m2 LV Mass: 298.04 67-162/88-224 g LV Mass Index: 136.09 43-95/49-115 g/m2 LVOT Diam: 2.20 3.0+(-)1.3 cm 2D Systolic Function EF 4C: 62.50 >55% EF 2C: 52.80 >55% EF BiP: 59.80 >55% Mitral Valve MV Pk E: 0.90 MV PK A: 1.03 MV Decel Time: 263.00 E/A: 0.90 E'Lateral: 8.70 E'Medial: 6.53 E/E' Med: 13.70 E/E' Lat: 10.30 PHT: 77.00 MVA PHT: 2.86 Decel Shelby: 3.41 Aortic Valve AoV Pk El: 1.82 AoV Mn El: 1.06 AoV VTI: 0.41 AoV Pk Grad: 13.00 Aov Mn Grad: 6.00 MEKA Cont.VTI: 2.97 LVOT LVOT Pk El: 1.41 LVOT Mn El: 0.88 LVOT VTI: 0.32 LVOT Pk Grad: 8.00 LVOT Mn Grad: 4.00 LVOT Diam: 2.20 LVOT Area: 3.80 Diastolic Function MV Pk E: 0.90 MV Pk A: 1.03 E/A: 0.90 E'Medial: 6.53 E/E' Med: 13.70 E' Laterial: 8.70 E/E' Lat: 10.30 Right Ventricle TAPSE (mm): 28.50 TVS' El: 20.50 Tricuspid Valve TR Pk El: 2.63 TR Pk Grad: 28.00 RA Press: 8.00 RVSP: 36.00 Great Vessels Aorta Sinus of Valsalva: 3.50 2.0-3.5 cm Ao Asc: 3.80 2.1-3.4 cm Pulmonary Valve PV Pk El: 1.06 Peak PV Grad: 4.00 Updated in Other Vendor System with Status of Final Pradip Gamboa MD electronically signed on 03/12/2022 2:34:29 PM with status of Final
== END ==
LOC: HO.CARD 08:28
PROVIDERS: PCP Internal Medicine; Visit Provider Internal Medicine Cardiovascular Disease
DX: I48.0 Paroxysmal atrial fibrillation (principal)
CPT/HCPCS: 93306

== ENCOUNTER 2022-04-27 11:36 | Outpatient (REF) | payer MEDICARE, SELFPAY ==
[2022-04-27 14:31] LABS: MANUAL DIFF FLAG NO
[2022-04-27 14:39] LABS: Basophils Percent Auto 0.4 % (0-2); Eosinophils Absolute Auto 0.2 X10*3/uL (0.0-0.4); Eosinophils Percent Auto 1.9 % (0-4); Hematocrit 53.9 % (42.0-52.0); Hemoglobin 17.8 g/dl (14.0-18.0); Imm Gran Abs Auto 0.03 X10*3/uL (0.00-0.03); Imm Gran Pct Auto 0.3 % (0.0-0.4); Lymphocytes Absolute Auto 1.3 X10*3/uL (1.2-4.9); Lymphocytes Percent Auto 13.6 % (20-40); Mean Corpuscular Volume 87.8 fL (80.0-98.0); Mean Platelet Volume 10.2 fL (9.4-12.4); Monocytes Absolute Auto 0.7 X10*3/uL (0.1-1.2); Neutrophils Absolute Auto 7.2 x10*3/uL (2.0-8.3); Neutrophils Percent Auto 76.8 % (45-73); Platelet Count 285 X10*3/uL (160-400); Red Blood Count 6.14 X10*6/uL (4.60-5.80); White Blood Count 9.3 X10*3/uL (4.8-10.8)
[2022-04-27 16:22] LABS: Vitamin B12 316 pg/mL (200-900)
[2022-04-27 16:23] LABS: Alanine Aminotransferase 24 U/L (0-40); Albumin Level 4.6 g/dL (3.5-5.0); Alkaline Phosphatase 155 U/L (39-117); Anion Gap 15 (12-20); Aspartate Amino Transferase 22 U/L (5-37); Blood Urea Nitrogen 14 mg/dL (9-16); Calcium 9.8 mg/dL (8.4-10.2); Carbon Dioxide 26 mmol/L (22-29); Chloride 104 mmol/L (96-108); Cholesterol 166 mg/dL; Estimated Glomerular Filt Rate 54; Glucose Random 85 mg/dL (60-115); HDL Cholesterol 45 mg/dL; LDL Cholesterol Calculated 98 mg/dl; Potassium 4.5 mmol/L (3.3-5.1); Sodium 140 mmol/L (135-145); Thyroid Stimulating Hormone 2.93 uIU/mL (0.32-4.0); Total Protein 7.1 g/dL (6.5-8.0); Triglycerides 117 mg/dL; Vitamin D 25-OH Total 52.1 ng/mL (>30)
[2022-04-27 16:54] LABS: Prostate Specific Antigen 1.59 ng/mL (<0.05-4.0)
[2022-04-28 05:51] LABS: ~HepC Num1 0.07 S/CO (0.00-0.79); ~Hepatitis C Antibody Nonreactive (Nonreactive)
== END 2022-04-27 11:37 | disposition home or self-care (01) ==
LOC: HO.MANLDS 11:36
PROVIDERS: Visit Provider Internal Medicine
DX: Z00.00 Encounter for general adult medical examination without abnormal findings (principal); E78.5 Hyperlipidemia, unspecified; Z11.59 Encounter for screening for other viral diseases; Z12.5 Encounter for screening for malignant neoplasm of prostate
CPT/HCPCS: 36415; 80053; 80061; 82306; 82607; 84153; 84443; 85025; 86803

== ENCOUNTER → 2022-05-18 08:35 | Outpatient (BNVA) | payer MEDICARE, SELFPAY | PROVIDERS: PCP Internal Medicine; Visit Provider Internal Medicine Cardiovascular Disease | DX: I48.0 Paroxysmal atrial fibrillation (principal); I10 Essential (primary) hypertension | CPT/HCPCS: 93005; 99212 ==

== ENCOUNTER → 2022-09-20 08:51 | Outpatient (BNVA) | payer MEDICARE, SELFPAY | PROVIDERS: PCP Internal Medicine; Visit Provider Internal Medicine | DX: G47.33 Obstructive sleep apnea (adult) (pediatric) (principal); E66.9 Obesity, unspecified; Z68.34 Body mass index [BMI] 34.0-34.9, adult | CPT/HCPCS: 99212 ==

== ENCOUNTER 2023-03-22 09:14 | Outpatient (AMB) | payer MEDICARE, SELFPAY ==
[2023-03-22 09:24] VITALS: BP 110/74; PULSE 54; O2SAT 97; BMI 34.4
--- NOTE | 2023-03-22 09:24 | MHC.OFFVIS ---
Intake Vital Signs 03/22/23 09:24 Height 5 ft 9 in Weight 233 lb BMI 34.4 BP 110/74 Blood Pressure Location Lt brachial Position Sitting Pulse 54 Pulse Source Pulse Oximeter Pulse Oximetry (%) 97 Oxygen Delivery Method Room Air Intake Visit Reasons: sleep apnea Intake Note: pt is here for follow up and states he is doing well. pt lost 50 lbs. down from 280. Pulmonary Disease Specialist Required: No Allergies metronidazole [From Flagyl] Adverse Reaction (Intermediate, Verified 03/22/23 09:36) Confusion Medication List - Last Reconciled 03/22/23 by Chay Lucia MD amlodipine 5 mg PO DAILY apixaban 5 mg PO BID atorvastatin 20 mg PO DAILY bupropion HCl 150 mg PO DAILY lorazepam 0.5 mg PO BID PRN omeprazole 20 mg PO DAILY propranolol ER 120 mg PO DAILY sildenafil 100 mg PO DAILY PRN tizanidine 4 mg PO BID Do you need a note to return to daycare/school/sports/work: No HPI sleep apnea HPI Details 68 YEARS OLD, GENTLEMAN WITH MODERATE OBESITY AND OBSTRUCTIVE SLEEP APNEA, COMES AFTER. 6 MONTHS FOR FOLLOW-UP HE HAS BEEN VERY COMPLIANT AND USING THE CPAP EVERY NIGHT FOR AT LEAST 7 HOURS PER NIGHT. HE HAD A LARGE FACEMASK WHICH WAS NOT FITTING HIM WELL SO NOW HE IS ON A MEDIUM SIZE, WHICH FITS HIM WELL. HE USES CPAP WITHOUT MUCH DISCOMFORT ARE AIR LEAK. . HAS NO DAYTIME SLEEPINESS GRADUALLY LOSING WEIGHT, LOST ABOUT 3 LB SINCE LAST VISIT. [facility] Medical History PATTIE (obstructive sleep apnea) Obesity (BMI 30-39.9) Paroxysmal atrial fibrillation Anxiety and depression Hyperlipidemia Atrial fibrillation with rapid ventricular response Diverticulitis HTN (hypertension) Surgical History Hx of knee surgery Social History Household Members: Spouse Housing: House Do you presently have visiting nurse or other home services: No Alcohol intake: never Patient Tobacco Use Status: Former Tobacco user Years Smoked: 35 Substance Use Type: Marijuana service: No Review of Systems Const All systems reviewed & are unremarkable except as noted in HPI and below Eyes Reports no additional complaints ENT Reports no additional complaints Card Denies chest pain, Denies irregular heart rhythm and Denies leg edema Resp Reports no additional complaints GI Reports heartburn (INTERMITTENT, WELL CONTROLLED) Reports no additional complaints Musc Reports no additional complaints Skin/Breast Reports system reviewed and no additional complaints, except as documented Neuro Reports no additional complaints Psych Reports anxiety (MILD OFF AND ON) Endo Reports no additional complaints Cuong/Lymph Reports no additional complaints Physical Exam Vital Signs: Last Vital Signs Pulse 54 03/22/23 09:24 BP 110/74 03/22/23 09:24 Pulse Ox 97 03/22/23 09:24 Oxygen Delivery Method Room Air 03/22/23 09:24 BMI result Body Mass Index 34.4 WEIGHT DOWN BY 3 LB AND HE LOOKS VERY HEALTHY. Const General: healthy appearing, comfortable, no acute distress, alert and awake Orientation/consciousness: patient oriented x3 HEENT Head: Yes normal to inspection General nose exam: No nasal polyps present and No nasal discharge present Face and sinus: Yes sinuses nontender Mouth: oropharynx normal Throat: Yes posterior oropharynx normal Eyes General: appearance normal, both eyes and all related structures Neck Neck: Yes normal visual inspection, Yes no lymphadenopathy, Yes trachea midline and Yes no JVD Thyroid: Thyroid normal Chest Chest palpation & inspection: normal inspection of the chest, normal palpation of entire chest wall and no tenderness Resp Other: Percussion note is resonant, good breath sounds and equal on both sides, no wheezes rhonchi or crepitations Cardio Palpation: normal PMI Rate: regular rate Rhythm: regular rhythm Heart sounds: no gallops and no murmurs Peripheral pulses: Peripheral pulses 2+ throughout GI Palpation (GI): Soft to palpation, nontender, No hepatosplenomegaly present and no masses Auscultation: normal bowel sounds Back/Spine/Pelvis Thoracic/Lumbar Spine: thoracic and lumbar spine normal to inspection Skin General skin exam: no rashes or lesions noted Neuro General: patient oriented x3 and no focal motor deficits Cranial nerves: Yes CN's II-XII intact bilaterally Extrem General: Yes normal to inspection, Yes no clubbing, cyanosis or edema and Yes no calf tenderness Psych Appearance: grossly normal and well kempt Speech and movement: Normal speech and movement present Results Reviewed Results Reviewed: COMPLIANCE REPORT IS REVIEWED AND HE HAS USED 30/30 NIGHTS., 100% AVERAGE USE PER NIGHT 7 HOURS 55 MINUTE. PRESSURE 9-12 CM. THERE IS NO SIGNIFICANT AIR LEAK. RESIDUAL AHI 6.1 WHICH IS SLIGHTLY HIGH. Assessment & Plan Assessment & Plan (1) Obesity (BMI 30-39.9): Comment: DISCUSSED WITH HIM ABOUT HIS WEIGHT . HE SAYS, HE CANNOT DO MUCH WALKING OR EXERCISE ON ACCOUNT OF HIS KNEE. ADVISED TO PUT MORE FOCUS ON THE DIET, REDUCE CALORIES INTAKE, AND DO SOME STATIONARY EXERCISE. Code(s): E66.9 - Obesity, unspecified (2) PATTIE (obstructive sleep apnea): Comment: OBSTRUCTIVE SLEEP APNEA IS WELL TREATED WITH USE OF CPAP AT THIS TIME. HE WILL CONTINUE TO USE IT EVERY NIGHT WITH NASAL PILLOWS, AND PRESSURE SETTING 6-20 CM. NO ISSUES NOTED AT THIS TIME. Code(s): G47.33 - Obstructive sleep apnea (adult) (pediatric) Coding Level of Care Code Est Pt Level 3 (64492) Diagnoses Obesity (BMI 30-39.9) E66.9 PATTIE (obstructive sleep apnea) G47.33
== END 2023-03-22 09:45 | disposition home or self-care (01) ==
PROVIDERS: PCP Internal Medicine; Visit Provider Internal Medicine
DX: E66.9 Obesity, unspecified (principal); G47.33 Obstructive sleep apnea (adult) (pediatric)
CPT/HCPCS: 99213

== ENCOUNTER → 2023-03-22 09:14 | Outpatient (BNVA) | payer MEDICARE, SELFPAY | PROVIDERS: Visit Provider Internal Medicine | DX: G47.33 Obstructive sleep apnea (adult) (pediatric) (principal); E66.9 Obesity, unspecified; Z68.34 Body mass index [BMI] 34.0-34.9, adult; Z99.89 Dependence on other enabling machines and devices | CPT/HCPCS: 99212 ==

== ENCOUNTER 2023-05-24 08:27 | Outpatient (AMB) | payer MEDICARE, SELFPAY ==
[2023-05-24 08:41] VITALS: BP 134/84; PULSE 75; BMI 34.5
--- NOTE | 2023-05-24 08:41 | A.OFFVIS_ITS ---
Intake Vital Signs 05/24/23 08:41 Height 5 ft 9 in Weight 233 lb 11.04 oz BMI 34.5 BP 134/84 Blood Pressure Location Lt brachial Position Sitting Pulse 75 Intake Visit Reasons: 1 year follow up Intake Note: 1 year follow-up feeling good Helper Electrical Required: No [employer] Account Assistant: [employer] Account Assistant Present Accompanied by: Spouse Allergies metronidazole [From Flagyl] Adverse Reaction (Intermediate, Verified 03/22/23 09:36) Confusion Medication List - Last Reconciled 05/24/23 by Eric Perkins MD amlodipine 5 mg PO DAILY apixaban 5 mg PO BID atorvastatin 20 mg PO DAILY bupropion HCl 150 mg PO DAILY lorazepam 0.5 mg PO BID PRN omeprazole 20 mg PO DAILY propranolol ER 120 mg PO DAILY sildenafil 100 mg PO DAILY PRN tizanidine 4 mg PO BID HPI HPI Comments History of Present Illness Details Gene comes for follow-up. He has been doing well from cardiac perspective. He denies any symptoms of irregular heartbeat or rapid heart rate or palpitations. Takes all his medications. No exertional chest pain or shortness of breath. Blood pressure is generally well controlled, occasionally blood pressure up to 140/87. Takes all his medications. No bleeding issues or neurologic events. Uses CPAP regularly. Has been trying to lose weight and has been successful with dietary modification and exercise. [facility] Medical History (Updated 05/24/23 @ 09:23 by Eric Perkins MD) Hypersomnia, unspecified PATTIE (obstructive sleep apnea) Obesity (BMI 30-39.9) Paroxysmal atrial fibrillation Anxiety and depression Hyperlipidemia Atrial fibrillation with rapid ventricular response Diverticulitis HTN (hypertension) Surgical History Hx of knee surgery Social History Household Members: Spouse Housing: House Do you presently have visiting nurse or other home services: No Alcohol intake: never Patient Tobacco Use Status: Former Tobacco user Years Smoked: 35 Substance Use Type: Marijuana service: No Review of Systems Const Denies chills, Denies fatigue, Denies fever(s), Denies frequent falls, Denies weakness, Denies weight gain and Denies weight loss ENT Denies dizziness Card Denies chest pain, Denies leg edema, Denies lightheadedness, Denies palpitations, Denies dyspnea, Denies dyspnea on exertion, Denies orthopnea and Denies other (loss of consciousness) Resp Denies cough, Denies dyspnea and Denies dyspnea on exertion GI Denies hematochezia and Denies change in stool character Musc Denies abnormal gait, Denies muscle weakness, Denies numbness, Denies radiating pain into limb and Denies tingling Neuro Denies abnormal gait, Denies dizziness, Denies frequent falls, Denies numbness, Denies tingling and Denies weakness Endo Denies fatigue and Denies palpitations Physical Exam Vital Signs: Last Vital Signs Pulse 75 05/24/23 08:41 BP 134/84 05/24/23 08:41 BMI result Body Mass Index 34.5 Const General: cooperative, comfortable, no acute distress, alert and awake Nutritional Appearance: obese Orientation/consciousness: patient oriented x3 Limitations: no limitations Neck Neck: Yes trachea midline, Yes supple and Yes no JVD Resp Effort & Inspection: normal respiratory effort Auscultation: clear to auscultation bilaterally Cardio Jugular venous distension: no JVD Palpation: normal PMI Rate: regular rate Rhythm: regular rhythm Heart sounds: S1 normal heart sound present and S2 normal heart sound present GI Auscultation: normal bowel sounds Skin General skin exam: no rashes or lesions noted Neuro General: patient oriented x3 and no focal motor deficits Extrem General: Yes no clubbing, cyanosis or edema Psych Appearance: grossly normal Office Procedures EKG Details: EKG shows normal sinus rhythm with normal EKG [id number], Complete Assessment & Plan Assessment & Plan (1) Paroxysmal atrial fibrillation: Code(s): I48.0 - Paroxysmal atrial fibrillation Plan: Paroxysmal atrial fibrillation, highly symptomatic. Has done extremely well with medical therapy and rhythm management. Continue rhythm control approach. Continue propranolol therapy. Continue treat risk factors including obesity which is trying. Also treat sleep apnea. Also aggressively manage blood pressure. Continue full oral anticoagulation, currently on Eliquis 5 mg b.i.d.. Semi annual renal function test should be pursued. Avoidance of stimulants was discussed. CHADSVASc score of 2. (2) HTN (hypertension): Code(s): I10 - Essential (primary) hypertension Qualifiers: Hypertension type: essential hypertension Qualified Code(s): I10 - Essential (primary) hypertension Plan: Hypertension which is currently optimized. He is currently on dual therapy with amlodipine and propranolol. He occasionally has elevated blood pressure. Advised to maintain a log. A blood pressure of persistently elevated may re require up titrating of medications. Continue CPAP therapy. Continue low-salt diet. Continue participate in heart healthy lifestyle. Currently on statin therapy, target goal LDL less than 100 mg/dL. Follow up in the clinic in 1 year's time, sooner p.r.n.. Thank you for allowing me to partake in his care Coding Level of Care Code Est Pt Level 4 (54524) Diagnoses Paroxysmal atrial fibrillation I48.0 Essential hypertension I10 Hypertension type: essential hypertension CPT Codes EKG - CPT: 12727-[id number], Complete ([id number])
== END 2023-05-24 09:25 | disposition home or self-care (01) ==
PROVIDERS: Visit Provider Internal Medicine Cardiovascular Disease
DX: I48.0 Paroxysmal atrial fibrillation (principal); I10 Essential (primary) hypertension
CPT/HCPCS: 93010; 99214

== ENCOUNTER → 2023-05-24 08:27 | Outpatient (BNVA) | payer MEDICARE, SELFPAY | PROVIDERS: Visit Provider Internal Medicine Cardiovascular Disease | DX: I48.0 Paroxysmal atrial fibrillation (principal); I10 Essential (primary) hypertension | CPT/HCPCS: 93005; 99212 ==

== ENCOUNTER 2023-05-25 07:22 | Outpatient (REF) | payer MEDICARE, SELFPAY ==
[2023-05-25 08:01] LABS: MANUAL DIFF FLAG NO
[2023-05-25 08:52] LABS: Basophils Percent Auto 0.1 % (0-2); Eosinophils Percent Auto 0.1 % (0-4); Hematocrit 49.7 % (42.0-52.0); Hemoglobin 16.6 g/dl (14.0-18.0); Imm Gran Abs Auto 0.16 X10*3/uL (0.00-0.03); Imm Gran Pct Auto 0.7 % (0.0-0.4); Lymphocytes Percent Auto 4.8 % (20-40); Mean Corpuscular HGB Conc 33.4 g/dl (31.0-36.0); Mean Corpuscular Hemoglobin 29.3 pg (27.0-33.0); Mean Corpuscular Volume 87.7 fL (80.0-98.0); Mean Platelet Volume 10.2 fL (9.4-12.4); Monocytes Absolute Auto 1.1 X10*3/uL (0.1-1.2); Monocytes Percent Auto 4.9 % (2-11); Neutrophils Absolute Auto 19.5 x10*3/uL (2.0-8.3); Neutrophils Percent Auto 89.4 % (45-73); Platelet Count 311 X10*3/uL (160-400); Red Blood Count 5.67 X10*6/uL (4.60-5.80); Red Cell Distribution Width 13.2 % (11.0-16.0); White Blood Count 21.8 X10*3/uL (4.8-10.8)
[2023-05-25 09:15] LABS: Alanine Aminotransferase 23 U/L (0-40); Albumin Level 4.3 g/dL (3.5-5.0); Alkaline Phosphatase 140 U/L (39-117); Anion Gap 13 (12-20); Aspartate Amino Transferase 18 U/L (5-37); Bilirubin Total 0.4 mg/dL (0.0-1.0); Blood Urea Nitrogen 19 mg/dL (9-16); Calcium 9.5 mg/dL (8.4-10.2); Carbon Dioxide 25 mmol/L (22-29); Chloride 109 mmol/L (96-108); Cholesterol 152 mg/dL (<200); Estimated Glomerular Filt Rate 56; Glucose Random 121 mg/dL (60-115); HDL Cholesterol 56 mg/dL (>40); LDL Cholesterol Calculated 82 mg/dL (<100); Sodium 143 mmol/L (135-145); Triglycerides 71 mg/dL (<150)
[2023-05-25 09:34] LABS: Prostate Specific Antigen 1.61 ng/mL (<0.05-4.0)
== END 2023-05-25 07:23 | disposition home or self-care (01) ==
LOC: HO.LAB 07:22
PROVIDERS: PCP Internal Medicine; Referring Provider Internal Medicine Cardiovascular Disease; Visit Provider Internal Medicine
DX: Z00.00 Encounter for general adult medical examination without abnormal findings (principal); Z20.2 Contact with and (suspected) exposure to infections with a predominantly sexual mode of transmission; Z12.5 Encounter for screening for malignant neoplasm of prostate
CPT/HCPCS: 36415; 80053; 80061; 84153; 85025

== ENCOUNTER 2023-08-10 14:31 | Outpatient (REF) | payer MEDICARE, SELFPAY ==
[2023-08-10 18:01] LABS: Alanine Aminotransferase 23 U/L (0-40); Albumin Level 4.3 g/dL (3.5-5.0); Alkaline Phosphatase 145 U/L (39-117); Anion Gap 12 (12-20); Aspartate Amino Transferase 20 U/L (5-37); Bilirubin Total 0.7 mg/dL (0.0-1.0); Blood Urea Nitrogen 15 mg/dL (9-16); Calcium 9.7 mg/dL (8.4-10.2); Carbon Dioxide 28 mmol/L (22-29); Chloride 107 mmol/L (96-108); Estimated Glomerular Filt Rate 58; Glucose Random 102 mg/dL (60-115); Potassium 3.9 mmol/L (3.3-5.1); Sodium 143 mmol/L (135-145); Total Protein 7.3 g/dL (6.5-8.0)
[2023-08-10 18:15] LABS: Thyroid Stimulating Hormone 1.57 uIU/mL (0.32-4.0)
[2023-08-12 13:49] LABS: Lyme Abs Screen <0.90 index
== END 2023-08-10 14:32 | disposition home or self-care (01) ==
LOC: HO.MANLDS 14:31
PROVIDERS: Visit Provider Internal Medicine
DX: R25.1 Tremor, unspecified (principal)
CPT/HCPCS: 36415; 80053; 84443; 86617; 86618

== ENCOUNTER 2023-11-16 13:17 | Outpatient (AMB) | payer MEDICARE, SELFPAY ==
[2023-11-16 13:23] VITALS: BP 120/80; PULSE 49; O2SAT 97; BMI 36.1
--- NOTE | 2023-11-16 13:23 | MHC.OFFVIS ---
Vital Signs 11/16/23 13:23 Height 5 ft 9 in Weight 244 lb 11.41 oz BMI 36.1 BP 120/80 Blood Pressure Location Lt brachial Position Sitting Pulse 49 L Pulse Source Pulse Oximeter Pulse Oximetry (%) 97 Oxygen Delivery Method Room Air Intake Visit Reasons: Sleep apnea Intake Note: pt is here for follow up and feeling good, having knee issues. Hr Internship Required: No Allergies metronidazole [From Flagyl] Adverse Reaction (Intermediate, Verified 11/16/23 13:47) Confusion Medication List - Last Reconciled 11/16/23 by Chay Lucia MD amlodipine 5 mg PO DAILY apixaban 5 mg PO BID atorvastatin 20 mg PO DAILY bupropion HCl SR 150 mg PO DAILY lorazepam 0.5 mg PO BID PRN omeprazole 20 mg PO DAILY propranolol ER 120 mg PO DAILY sildenafil 100 mg PO DAILY PRN tizanidine 4 mg PO BID Do you need a note to return to daycare/school/sports/work: No HPI HPI Sleep apnea: Details: is 68 years old very pleasant gentleman who happened to be grossly obese and has diagnosis of obstructive sleep apnea. He uses CPAP very regularly and is happy with his current nasal pillow. He is using CPAP every night and he say is at least for 7-8 hours. He denies any daytime sleepiness. Does not have any chronic lung disease. Also does not have any neurologic disorder and does not take any narcotics are anxiolytic meds. His compliance is very good but he has some residual central and obstructive apnea, suggesting hypoventilation. [facility] Medical History Hypoventilation associated with obesity Hypersomnia, unspecified PATTIE (obstructive sleep apnea) Obesity (BMI 30-39.9) Paroxysmal atrial fibrillation Anxiety and depression Hyperlipidemia Atrial fibrillation with rapid ventricular response Diverticulitis HTN (hypertension) Surgical History Hx of knee surgery Social History Household Members: Spouse Housing: House Do you presently have visiting nurse or other home services: No Alcohol intake: never Patient Tobacco Use Status: Former Tobacco user Years Smoked: 35 Substance Use Type: Marijuana service: No Review of Systems Const All systems reviewed & are unremarkable except as noted in HPI and below Eyes Reports no additional complaints ENT Reports no additional complaints Card Denies chest pain, Denies irregular heart rhythm and Denies leg edema Resp Reports no additional complaints GI Reports heartburn (INTERMITTENT, WELL CONTROLLED) Reports no additional complaints Musc Reports no additional complaints Skin/Breast Reports system reviewed and no additional complaints, except as documented Neuro Reports no additional complaints Psych Reports anxiety (MILD OFF AND ON) Endo Reports no additional complaints Cuong/Lymph Reports no additional complaints Physical Exam Vital Signs: Last Vital Signs Pulse 49 L 11/16/23 13:23 BP 120/80 11/16/23 13:23 Pulse Ox 97 11/16/23 13:23 Oxygen Delivery Method Room Air 11/16/23 13:23 BMI result Body Mass Index 36.1 WEIGHT DOWN BY 3 LB AND HE LOOKS VERY HEALTHY. Const General: healthy appearing, comfortable, no acute distress, alert and awake Orientation/consciousness: patient oriented x3 HEENT Head: Yes normal to inspection General nose exam: No nasal polyps present and No nasal discharge present Face and sinus: Yes sinuses nontender Mouth: oropharynx normal Throat: Yes posterior oropharynx normal Eyes General: appearance normal, both eyes and all related structures Neck Neck: Yes normal visual inspection, Yes no lymphadenopathy, Yes trachea midline and Yes no JVD Thyroid: Thyroid normal Chest Chest palpation & inspection: normal inspection of the chest, normal palpation of entire chest wall and no tenderness Resp Other: Percussion note is resonant, good breath sounds and equal on both sides, no wheezes rhonchi or crepitations Cardio Palpation: normal PMI Rate: regular rate Rhythm: regular rhythm Heart sounds: no gallops and no murmurs Peripheral pulses: Peripheral pulses 2+ throughout GI Palpation (GI): Soft to palpation, nontender, No hepatosplenomegaly present and no masses Auscultation: normal bowel sounds Back/Spine/Pelvis Thoracic/Lumbar Spine: thoracic and lumbar spine normal to inspection Skin General skin exam: no rashes or lesions noted Neuro General: patient oriented x3 and no focal motor deficits Cranial nerves: Yes CN's II-XII intact bilaterally Extrem General: Yes normal to inspection, Yes no clubbing, cyanosis or edema and Yes no calf tenderness Psych Appearance: grossly normal and well kempt Speech and movement: Normal speech and movement present Results Reviewed Results Reviewed: Compliance report for the last 30 nights is reviewed He has used 30/30 nights,. 100% Average use per night is 7 hours 53 minutes. Pressure used mostly 14-16 cm. No significant air leak noted. Residual AHI 13.6 which is relatively high. Majority of the residual AHI is due to central events . Assessment & Plan Assessment & Plan (1) Obesity (BMI 30-39.9): Comment: CURRENT BMI= 36.1 DISCUSSED WITH HIM ABOUT HIS WEIGHT . HE SAYS, HE CANNOT DO MUCH WALKING OR EXERCISE ON ACCOUNT OF HIS KNEES. Code(s): E66.9 - Obesity, unspecified Category: Medical Plan: DISCUSSED ABOUT THE WEIGHT WT GAIN OF 11 LBs FROM LAST VISIT , MAY ACCOUNT FOR SOME HYPOVENTILATION/CENTRAL APNEAS. ADVISED TO PUT MORE FOCUS ON THE DIET, REDUCE CALORIES INTAKE, AND DO SOME STATIONARY EXERCISE. (2) PATTIE (obstructive sleep apnea): Comment: OBSTRUCTIVE SLEEP APNEA IS WELL TREATED WITH USE OF CPAP AT THIS TIME. INCREASED NUMBER OF CENTRAL APNEAS IS NOTED WHICH CONTRIBUTES TO HIGH RESIDUAL AHI. AT THIS MAY BE DUE TO INCREASE IN THE WEIGHT Code(s): G47.33 - Obstructive sleep apnea (adult) (pediatric) Category: Medical Plan: WILL CONTINUE TO USE CPAP EVERY NIGHT WITH NASAL PILLOWS, AND PRESSURE SETTING 6-20 CM. AVOID ANY ANXIOLYTIC OR NARCOTIC MEDS, VENOUS BLOOD GAS ORDERED TO CHECK FOR HYPOVENTILATION. (3) Hypoventilation associated with obesity: Comment: HE HAS INCREASED NUMBER OF CENTRAL APNEA SUGGESTING NOCTURNAL HYPOVENTILATION. Code(s): E66.2 - Morbid (severe) obesity with alveolar hypoventilation Category: Medical Plan: VENOUS BLOOD GAS STUDY, EXPLAINED ABOUT CENTRAL APNEAS AND, STRESS THAT HE SHOULD LOSE WEIGHT, AND AVOID ANY ANXIOLYTIC HER NARCOTIC MEDS. Orders: Orders Venous Blood Gas Today E66.2 - Morbid (severe) obesity with alveolar hypoventilation, G47.33 - Obstructive sleep apnea (adult) (pediatric) Coding Level of Care Code Est Pt Level 3 (79722) Diagnoses Obesity (BMI 30-39.9) E66.9 PATTIE (obstructive sleep apnea) G47.33 Hypoventilation associated with obesity E66.2
== END 2023-11-16 13:47 | disposition home or self-care (01) ==
PROVIDERS: PCP Internal Medicine; Visit Provider Internal Medicine
DX: G47.33 Obstructive sleep apnea (adult) (pediatric) (principal); E66.9 Obesity, unspecified; Z68.36 Body mass index [BMI] 36.0-36.9, adult
CPT/HCPCS: 99213

== ENCOUNTER 2023-11-16 13:17 | Outpatient (REF) | payer MEDICARE, MEDICAID, SELFPAY ==
[2023-11-16 14:15] LABS: Venous Blood Gas Refer to POC result
[2023-11-16 14:17] LABS: VBG Base Excess 0.7 mmol/L; VBG pCO2 42 mmHg; VBG pH 7.39 (7.32-7.43); VBG pO2 41 mmHg
[2023-11-16 14:18] LABS: VBG HCO3 25 mmol/L (22-26)
== END 2023-11-16 13:18 | disposition home or self-care (01) ==
LOC: HO.LAB 13:17
PROVIDERS: PCP Internal Medicine; Visit Provider Internal Medicine
DX: G47.33 Obstructive sleep apnea (adult) (pediatric) (principal); E66.2 Morbid (severe) obesity with alveolar hypoventilation; Z99.89 Dependence on other enabling machines and devices
CPT/HCPCS: 36415; 82803; 99212

== ENCOUNTER → 2024-04-23 10:37 | Outpatient (REF) | payer MEDICARE, OTHER, SELFPAY ==
--- NOTE | 2024-04-23 10:39 | CA_ITS ---
Transthoracic Echocardiogram Patient (Last, First, Middle): Gene Luis P Gender: Male Date of : 1955 Age: 69 Procedure Date: 04/23/2024 Procedure Type: Transthoracic Echocardiogram Location: OP Height: 177.8 cm Weight: 104.33 kg BSA: 2.22 m2 Heart Rate: bpm BP: 120 / 68 mmHg Radiation Therapy Technician: AMENA Referring MD: Eric Perkins MD Prototype Deicer Assembler: Eric Perkins MD Symptoms: I48.0 - Paroxysmal atrial fibrillation Study Quality: Fair ECG Rhythm: Sinus Conclusions: - 1. Normal LV ejection fraction of 60 65% with mild LVH with impaired relaxation filling pattern 2. Cardiac valvular Doppler is within normal limits 3. Mildly dilated ascending aorta at 4 cm 4. Normal RV systolic pressure Findings Left Ventricle Normal left ventricular size and systolic function. There is mildly increased left ventricular wall thickness. The visually estimated ejection fraction is between 60-65%. Spectral Doppler is indicative of an impaired relaxation filling pattern. Peak GLS is -19.8%, within normal limits. Right Ventricle Normal right ventricular cavity size and systolic function. Atria The left atrium is likely dilated. Interatrial shunt cannot be excluded. The right atrium was not well visualized. Aortic Valve The aortic valve was not well visualized. There is no aortic valve stenosis. There is no aortic valve regurgitation. Mitral Valve The mitral valve was not well visualized. There is trace mitral valve regurgitation. There is no mitral valve stenosis. Pulmonic Valve The pulmonic valve was not well visualized. Tricuspid Valve Likely normal tricuspid valve structure and function. There is trace tricuspid valve regurgitation. The right ventricular systolic pressure is normal. The right ventricular systolic pressure is 32 mmHg. Normal right atrial pressure. There is no evidence of pulmonary hypertension. Great Vessels The aorta was not well visualized. The pulmonary artery was not well visualized. There is mild dilatation of the ascending aorta measuring 4.00 cm. Venous The inferior vena cava is normal in size and collapses greater than 50% with inspiration. Pericardium/Pleural The pericardium was not well visualized. Prior Study Comparison Changes noted compared to prior study dated: 03/11/2022. Ascending aorta is mildly dilated at 4 cm Measurements 2D Linear Measurements IVSd: 1.39 0.6-0.9/0.6-1.0 cm LVIDd: 4.97 3.9-5.3/4.2-5.9 cm LVIDd Index: 2.24 2.4-3.2/2.2-3.1 cm/m2 LVIDs: 3.17 2.0-3.6 cm LVPWd: 1.21 0.7-1.1 cm LA Diam: 4.20 2.7-3.8/3.0-4.0 cm LAIDs Index: 1.89 1.5-2.3 cm/m2 LV Mass: 323.48 67-162/88-224 g LV Mass Index: 145.71 43-95/49-115 g/m2 LVOT Diam: 2.00 3.0+(-)1.3 cm 2D Systolic Function EF 4C: 62.50 >55% EF 2C: 66.10 >55% EF BiP: 62.30 >55% Mitral Valve MV Pk E: 0.92 MV PK A: 1.03 MV Decel Time: 274.00 E/A: 0.90 E'Lateral: 7.40 E'Medial: 5.87 E/E' Med: 15.70 E/E' Lat: 12.40 PHT: 80.00 MVA PHT: 2.75 Decel Tripp: 3.35 Aortic Valve AoV Pk El: 1.90 AoV Mn El: 1.18 AoV VTI: 0.43 AoV Pk Grad: 14.00 Aov Mn Grad: 6.00 MEKA Cont.VTI: 2.51 LVOT LVOT Pk El: 1.39 LVOT Mn El: 0.80 LVOT VTI: 0.35 LVOT Pk Grad: 8.00 LVOT Mn Grad: 3.00 LVOT Diam: 2.00 LVOT Area: 3.14 Diastolic Function MV Pk E: 0.92 MV Pk A: 1.03 E/A: 0.90 E'Medial: 5.87 E/E' Med: 15.70 E' Laterial: 7.40 E/E' Lat: 12.40 Right Ventricle TAPSE (mm): 35.00 TVS' El: 18.90 Tricuspid Valve TR Pk El: 2.70 TR Pk Grad: 29.00 RA Press: 3.00 RVSP: 32.00 Great Vessels Aorta Sinus of Valsalva: 3.45 2.0-3.[address] Ridge: 2.44 1.7-3.4 cm Ao Asc: 4.00 2.1-3.4 cm Updated in Other Vendor System with Status of Final Eric Perkins MD electronically signed on 04/24/2024 8:43:55 AM with status of Final
== END ==
LOC: HO.CARD 10:37
PROVIDERS: PCP Internal Medicine; Visit Provider Internal Medicine Cardiovascular Disease
DX: I48.0 Paroxysmal atrial fibrillation (principal)
CPT/HCPCS: 93306; 93356

== ENCOUNTER → 2024-04-23 10:39 | Outpatient (BNV) | payer MEDICARE, MEDICAID, SELFPAY | PROVIDERS: PCP Internal Medicine; Visit Provider Internal Medicine Cardiovascular Disease | DX: I48.0 Paroxysmal atrial fibrillation (principal); I51.89 Other ill-defined heart diseases | CPT/HCPCS: 93306; 93356 ==

== ENCOUNTER 2024-05-08 09:59 | Outpatient (AMB) | payer MEDICARE, MEDICAID, SELFPAY ==
[2024-05-08 10:27] VITALS: BP 110/80; PULSE 43; O2SAT 97; BMI 35.8
--- NOTE | 2024-05-08 10:27 | MHC.OFFVIS ---
Vital Signs 05/08/24 10:27 Height 5 ft 9 in Weight 242 lb 8.136 oz BMI 35.8 BP 110/80 Blood Pressure Location Lt brachial Position Sitting Pulse 43 L Pulse Source Pulse Oximeter Pulse Oximetry (%) 97 Oxygen Delivery Method Room Air Intake Visit Reasons: copd Intake Note: pt is here for follow up and states he is using cpap and it is going well. 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 Required: No Allergies metronidazole [From Flagyl] Adverse Reaction (Intermediate, Verified 05/08/24 10:49) Confusion Medication List - Last Reconciled 05/08/24 by Chay Lucia MD amlodipine 5 mg PO DAILY apixaban 5 mg PO BID atorvastatin 20 mg PO DAILY bupropion HCl SR 150 mg PO DAILY lorazepam 0.5 mg PO BID PRN omeprazole 20 mg PO DAILY propranolol ER 120 mg PO DAILY sildenafil 100 mg PO DAILY PRN tizanidine 4 mg PO BID Do you need a note to return to daycare/school/sports/work: No HPI HPI copd: Details: This 69 years old very pleasant gentleman is moderately obese and has history of obstructive sleep apnea/nocturnal hypoventilation problem. He is using CPAP at night very regularly, and sleeps well. He denies any daytime sleepiness. He has no cough wheezing or dyspnea on exertion during the daytime. 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 CLAIMS THAT HE DOES NOT INDULGE IN OVER EATING. [facility] Medical History Hypoventilation associated with obesity Hypersomnia, unspecified PATTIE (obstructive sleep apnea) Obesity (BMI 30-39.9) Paroxysmal atrial fibrillation Anxiety and depression Hyperlipidemia Atrial fibrillation with rapid ventricular response Diverticulitis HTN (hypertension) Surgical History Hx of knee surgery Social History Household Members: Spouse Housing: House Do you presently have visiting nurse or other home services: No Alcohol intake: never Patient Tobacco Use Status: Former Tobacco user Years Smoked: 35 Substance Use Type: Marijuana service: No Review of Systems Const All systems reviewed & are unremarkable except as noted in HPI and below Eyes Reports no additional complaints ENT Reports no additional complaints Card Denies chest pain, Denies irregular heart rhythm and Denies leg edema Resp Reports no additional complaints GI Reports heartburn (INTERMITTENT, WELL CONTROLLED) Reports no additional complaints Musc Reports no additional complaints Skin/Breast Reports system reviewed and no additional complaints, except as documented Neuro Reports no additional complaints Psych Reports anxiety (MILD OFF AND ON) Endo Reports no additional complaints Cuong/Lymph Reports no additional complaints Physical Exam Vital Signs: Last Vital Signs Pulse 43 L 05/08/24 10:27 BP 110/80 05/08/24 10:27 Pulse Ox 97 05/08/24 10:27 Oxygen Delivery Method Room Air 05/08/24 10:27 BMI result Body Mass Index 35.8 WEIGHT DOWN BY 3 LB AND HE LOOKS VERY HEALTHY. Const General: healthy appearing, comfortable, no acute distress, alert and awake Orientation/consciousness: patient oriented x3 HEENT Head: Yes normal to inspection General nose exam: No nasal polyps present and No nasal discharge present Face and sinus: Yes sinuses nontender Mouth: oropharynx normal Throat: Yes posterior oropharynx normal Eyes General: appearance normal, both eyes and all related structures Neck Neck: Yes normal visual inspection, Yes no lymphadenopathy, Yes trachea midline and Yes no JVD Thyroid: Thyroid normal Chest Chest palpation & inspection: normal inspection of the chest, normal palpation of entire chest wall and no tenderness Resp Other: Percussion note is resonant, good breath sounds and equal on both sides, no wheezes rhonchi or crepitations Cardio Palpation: normal PMI Rate: regular rate Rhythm: regular rhythm Heart sounds: no gallops and no murmurs Peripheral pulses: Peripheral pulses 2+ throughout GI Palpation (GI): Soft to palpation, nontender, No hepatosplenomegaly present and no masses Auscultation: normal bowel sounds Back/Spine/Pelvis Thoracic/Lumbar Spine: thoracic and lumbar spine normal to inspection Skin General skin exam: no rashes or lesions noted Neuro General: patient oriented x3 and no focal motor deficits Cranial nerves: Yes CN's II-XII intact bilaterally Extrem General: Yes normal to inspection, Yes no clubbing, cyanosis or edema and Yes no calf tenderness Psych Appearance: grossly normal and well kempt Speech and movement: Normal speech and movement present Results Reviewed Results Reviewed: Compliance report for the last 30 nights is reviewed. HE HAS USED 30/30 NIGHTS, 100% OF THE TIME. AVERAGE USE IT PER NIGHT 8 HOURS 2 MINUTES. NO SIGNIFICANT AIR LEAK. RESIDUAL AHI 8.5, WHICH IS DUE TO OBSTRUCTIVE WELL CENTRAL EVENTS. IT IS DEFINITELY IMPROVED FROM BEFORE. Assessment & Plan Assessment & Plan (1) Obesity (BMI 30-39.9): Comment: CURRENT BMI= 35.8 , AD FEW IBs LESS HE SAYS, HE CANNOT DO MUCH WALKING OR EXERCISE ON ACCOUNT OF HIS KNEE PROBLEMS . Code(s): E66.9 - Obesity, unspecified Category: Medical Plan: DISCUSSED ABOUT THE DIET, KEEP IT LOW IN CARBOHYDRATES AND SALT. CUT DOWN THE PORTIONS, AND TRY TO WALK AROUND MUCH HE CAN. (2) PATTIE (obstructive sleep apnea): Comment: OBSTRUCTIVE SLEEP APNEA IS WELL TREATED WITH USE OF CPAP AT THIS TIME. INCREASED NUMBER OF CENTRAL APNEAS IS NOTED WHICH CONTRIBUTES TO HIGH RESIDUAL AHI. BUT IT IS DEFINITELY IMPROVED FROM BEFORE. Code(s): G47.33 - Obstructive sleep apnea (adult) (pediatric) Category: Medical Plan: COMMENDED FOR GOOD COMPLIANCE AND ADVISED TO KEEP ON USING THE CPAP EVERY NIGHT. (3) Hypoventilation associated with obesity: Comment: HE HAS INCREASED NUMBER OF CENTRAL APNEA SUGGESTING NOCTURNAL HYPOVENTILATION. IMPROVING. Code(s): E66.2 - Morbid (severe) obesity with alveolar hypoventilation Category: Medical Plan: CONTINUE TO USE CPAP 7-8 HOURS EVERY NIGHT. DURING THE DAYTIME TRY TO DO DEEP BREATHING EXERCISES 2-3 TIMES PER DAY. Coding Level of Care Code Est Pt Level 3 (44282) Diagnoses Obesity (BMI 30-39.9) E66.9 PATTIE (obstructive sleep apnea) G47.33 Hypoventilation associated with obesity E66.2
== END 2024-05-08 10:51 | disposition home or self-care (01) ==
PROVIDERS: PCP Internal Medicine; Referring Provider Internal Medicine; Visit Provider Internal Medicine
DX: E66.9 Obesity, unspecified (principal); G47.33 Obstructive sleep apnea (adult) (pediatric); E66.2 Morbid (severe) obesity with alveolar hypoventilation
CPT/HCPCS: 99213

== ENCOUNTER → 2024-05-08 09:59 | Outpatient (BNVA) | payer MEDICARE, MEDICAID, SELFPAY | PROVIDERS: PCP Internal Medicine; Visit Provider Internal Medicine | DX: G47.33 Obstructive sleep apnea (adult) (pediatric) (principal); E66.9 Obesity, unspecified; E66.2 Morbid (severe) obesity with alveolar hypoventilation; Z68.35 Body mass index [BMI] 35.0-35.9, adult | CPT/HCPCS: 99212 ==

== ENCOUNTER 2024-06-14 14:44 | Outpatient (AMB) | payer MEDICARE, MEDICAID, SELFPAY ==
--- NOTE | 2024-06-14 14:49 | A.OFFVIS_ITS ---
Vital Signs 06/14/24 14:50 Height 5 ft 9 in Weight 233 lb 11.04 oz BMI 34.5 BP 128/78 Blood Pressure Location Lt brachial Position Sitting Pulse 46 L Pulse Source Monitor Intake Visit Reasons: 1 yr s/p echo Allergies metronidazole [From Flagyl] Adverse Reaction (Intermediate, Verified 05/08/24 10:49) Confusion Medication List - Last Reconciled 06/14/24 by Eric Perkins MD amlodipine 5 mg PO DAILY apixaban 5 mg PO BID atorvastatin 20 mg PO DAILY bupropion HCl SR 150 mg PO DAILY lorazepam 0.5 mg PO BID PRN omeprazole 20 mg PO DAILY propranolol ER 160 mg PO DAILY sildenafil 100 mg PO DAILY PRN tizanidine 4 mg PO BID HPI Comments Details: comes for follow-up. He has been doing very well from cardiac perspective. Remains fairly active. Denies any exertional chest pain or shortness of breath. Denies any heart failure symptoms of orthopnea, PND, leg edema. No episodes of atrial fibrillation. Tolerating his medications well. Propranolol was increased for blood pressure control and since then he says blood pressures been better controlled. Echocardiogram shows mild hypertensive heart disease with mildly dilated ascending aorta at 4 cm. [facility] Medical History Hypoventilation associated with obesity Hypersomnia, unspecified PATTIE (obstructive sleep apnea) Obesity (BMI 30-39.9) Paroxysmal atrial fibrillation Anxiety and depression Hyperlipidemia Atrial fibrillation with rapid ventricular response Diverticulitis HTN (hypertension) Surgical History Hx of knee surgery Social History Household Members: Spouse Housing: House Do you presently have visiting nurse or other home services: No Alcohol intake: never Patient Tobacco Use Status: Former Tobacco user Years Smoked: 35 Substance Use Type: Marijuana service: No Review of Systems Const Denies weakness ENT Denies dizziness Card Denies chest pain, Denies chest pain with activity, Denies syncope, Denies rapid heart rate, Denies pedal edema, Denies edema, Denies leg edema, Denies lightheadedness, Denies palpitations, Denies dyspnea, Denies dyspnea on exertion and Denies orthopnea Resp Denies cough, Denies dyspnea and Denies dyspnea on exertion GI Denies hematochezia and Denies change in stool character Musc Denies abnormal gait, Denies muscle cramps, Denies muscle weakness, Denies numbness, Denies radiating pain into limb and Denies tingling Neuro Denies abnormal gait, Denies dizziness, Denies syncope, Denies numbness, Denies tingling and Denies weakness Endo Denies palpitations Physical Exam Vital Signs: Last Vital Signs Pulse 46 L 06/14/24 14:50 BP 128/78 06/14/24 14:50 BMI result Body Mass Index 34.5 Const General: cooperative, comfortable, no acute distress, alert and awake Nutritional Appearance: obese Orientation/consciousness: patient oriented x3 Limitations: no limitations Neck Neck: Yes trachea midline, Yes supple and Yes no JVD Resp Effort & Inspection: normal respiratory effort Auscultation: clear to auscultation bilaterally Cardio Jugular venous distension: no JVD Palpation: normal PMI Rate: regular rate Rhythm: regular rhythm Heart sounds: S1 normal heart sound present and S2 normal heart sound present GI Auscultation: normal bowel sounds Skin General skin exam: no rashes or lesions noted Neuro General: patient oriented x3 and no focal motor deficits Extrem General: Yes no clubbing, cyanosis or edema Psych Appearance: grossly normal Office Procedures EKG Details: EKG shows sinus bradycardia 46 beats per minute without significant abnormality [id number], Complete Assessment & Plan Assessment & Plan (1) Paroxysmal atrial fibrillation: Code(s): I48.0 - Paroxysmal atrial fibrillation Category: Medical Plan: Highly symptomatic paroxysmal atrial fibrillation which has remained suppressed on current therapy and after CPAP initiation therapy. He has done well with rhythm control approach will continue pursue rhythm control approach. Continue current Inderal therapy. Avoidance of stimulants was discussed. Continue full oral anticoagulation, currently on Eliquis 5 mg b.i.d.. Semi annual renal function test is recommended. No indication for antiarrhythmic drug therapy at this point time. Continue aggressive risk factor modification including weight loss, control of blood pressure as well as CPAP therapy. (2) Sinus bradycardia: Code(s): R00.1 - Bradycardia, unspecified Category: Medical Plan: Sinus bradycardia due to propranolol therapy. Currently having no symptoms related to it. At this point time would continue Inderal therapy. There is no indication pacing therapy. Advised to call me with any new symptoms. (3) Enlarged thoracic aorta: Code(s): I77.89 - Other specified disorders of arteries and arterioles Category: Medical Plan: Mildly enlarged thoracic aorta. Currently doing well without any symptoms. Continue aggressive blood pressure control and current propranolol therapy. Annual echocardiogram to be pursued. Continue lipid modification with goal LDL less than 100 mg/dL. Follow up in the clinic in 1 year's time, sooner p.r.n.. Thank you for allowing me to partake in his care Orders: Orders CA echo transthoracic complete 1 Year I77.89 - Other specified disorders of arteries and arterioles Coding Level of Care Code Est Pt Level 4 (73776) Complex EM visit Add On G2211 Diagnoses Paroxysmal atrial fibrillation I48.0 Sinus bradycardia R00.1 Enlarged thoracic aorta I77.89 CPT Codes EKG - CPT: [id number], Complete ([id number])
[2024-06-14 14:50] VITALS: BP 128/78; PULSE 46; BMI 34.5
== END 2024-06-14 15:08 | disposition home or self-care (01) ==
PROVIDERS: PCP Internal Medicine; Visit Provider Internal Medicine Cardiovascular Disease
DX: I48.0 Paroxysmal atrial fibrillation (principal); R00.1 Bradycardia, unspecified; I77.89 Other specified disorders of arteries and arterioles
CPT/HCPCS: 93010; 99214; G2211

== ENCOUNTER → 2024-06-14 14:44 | Outpatient (BNVA) | payer MEDICARE, MEDICAID, SELFPAY | PROVIDERS: PCP Internal Medicine; Visit Provider Internal Medicine Cardiovascular Disease | DX: I48.0 Paroxysmal atrial fibrillation (principal); I77.89 Other specified disorders of arteries and arterioles; R00.1 Bradycardia, unspecified | CPT/HCPCS: 93005; 99212 ==

== ENCOUNTER 2024-10-24 14:26 | Outpatient (REF) | payer MEDICARE, MEDICAID, SELFPAY ==
--- OUTSIDE RECORDS SUMMARY | 2024-10-24 15:39 | XMS_ITS | Data Portability ---
Author Organization [facility], Home Service Address [address] [place] [address] Assessment Encounter Date Assessment Date Assessment LastModified by Organization Details LastModified Time 03/07/2024 03/07/2024 [id number] [place] [id number] (COBBLER MCKAY) : INO LOW MUST MEET 2 OF 3 ELEMENTS: PROBLEMS, DATA OR RISK ELEMENT 1: PROBLEMS ADDRESSED (LOW): 2 OR MORE SELF-LIMITED OR MINOR PROBLEMS OR 1 STABLE CHRONIC ILLNESS OR 1 ACUTE UNCOMPLICATED ILLNESS OR INJURY ELEMENT 2: DATA TO BE REVISED AND ANALYZED (LOW) MUST MEET 1 OF 2 CATEGORIES: CATEGORY 1. REVIEW OF PRIOR EXTERNAL NOTES/RESULTS, ORDERING OF TEST(S) CATEGORY 2. ASSESSMENT REQUIRING INDEPENDENT HISTORIAN(S) INCLUDE WHO THE HISTORIAN IS AND RELATION TO PT AND WHY PT IS UNABLE TO GIVE COMPLETE HISTORY ELEMENT 3: RISK (LOW) RISK OF COMPLICATIONS AND/OR MORBIDITY OR MORTALITY OF PATIENT MANAGEMENT PROVIDER MUST THOROUGHLY DOCUMENT ALL OF THE ELEMENTS COVERED Not available 03/07/2024 14:05:37 05/14/2024 05/14/2024 [id number] [place] [id number] (COBBLER MCKAY) : INO LOW MUST MEET 2 OF 3 ELEMENTS: PROBLEMS, DATA OR RISK ELEMENT 1: PROBLEMS ADDRESSED (LOW): 2 OR MORE SELF-LIMITED OR MINOR PROBLEMS OR 1 STABLE CHRONIC ILLNESS OR 1 ACUTE UNCOMPLICATED ILLNESS OR INJURY ELEMENT 2: DATA TO BE REVISED AND ANALYZED (LOW) MUST MEET 1 OF 2 CATEGORIES: CATEGORY 1. REVIEW OF PRIOR EXTERNAL NOTES/RESULTS, ORDERING OF TEST(S) CATEGORY 2. ASSESSMENT REQUIRING INDEPENDENT HISTORIAN(S) INCLUDE WHO THE HISTORIAN IS AND RELATION TO PT AND WHY PT IS UNABLE TO GIVE COMPLETE HISTORY ELEMENT 3: RISK (LOW) RISK OF COMPLICATIONS AND/OR MORBIDITY OR MORTALITY OF PATIENT MANAGEMENT PROVIDER MUST THOROUGHLY DOCUMENT ALL OF THE ELEMENTS COVERED Not available 05/14/2024 12:09:35 10/24/2024 10/24/2024 Patient presente d to office today for their Medicare Annual Wellness Visit. Education was provided on healthy nutrition, including a diet rich in fruits and vegetables, minimizing simple carbohydrates, salt, and saturated fats. Encouraged regular cardiovascular exercise such as walking at least 30 minutes daily, 5 times per week. Emphasized preventive health measures and educated pt on fall prevention and community-based lifestyle interventions to help reduce health risks and promote healthy living. [email or web address] Not available 10/23/2024 13:54:25 Plan of Treatment Reminders Order Date Submit Date Provider Last Modified By Organization Details Last Modified Time Details Appointments MEDICARE ANNUAL WELLNESS 2024 01:45P M DR NICHOLE Not available Not available Not available Lab lipid panel, blood 2024 [id number] [facility], [address] [place] [address], [address], [place], [address], 10/24/2024 14:23:43 hemoglobi n A1c, QN, blood 2024 025 [facility], [address] [place] [address], [place], [address], 10/24/2024 14:25:14 CBC w/ auto diff 2024 [id number] [facility], [address] [place] [address], [address], [place], [address], 10/24/2024 14:23:44 CMP, serum or plasma 2024 025 [facility], [address] [place] [address], [address], [place], [address], 10/24/2024 14:23:43 vitamin B12, serum 2024 025 [facility], [address] [place] [address], [address], [place], [address], 10/24/2024 14:23:43 TSH, serum or plasma 2024 025 [facility], [address] [facility], [address], [place], [address], 10/24/2024 14:23:44 testoster one, total, serum 2024 025 [facility], [address] [facility], [address], [place], [address], 10/24/2024 14:23:44 vitamin D, 25-hydrox y, total, serum 2024 025 [facility], [address] [facility], [address], [place], [address], 10/24/2024 14:23:44 Referral None recorded. Procedures None recorded. Surgeries None recorded. Imaging None recorded. Medication Orders ondansetr on 8 mg disintegr ating tablet 2023 024 [facility]acy #5, [address] [place], [address], 05/02/2024 11:26:47 amoxicill in 875 mg-potass ium clavulana te 125 mg tablet 2023 024 [facility] #[id number], [address] [place], [address], 05/02/2024 11:26:48 Patient TargetsNo targets recorded. Patient Instructions Encounter Date Encounter Id Patient Instructions Last Modified By Organization Details Last Modified Time 10/24/2024 [id number] pulse oximetry* Not available 10/24/2024 14:23:21 advance care planning: care instructions Not available 10/24/2024 14:23:22 Discussed and explained advance directives such as standard forms to the {{patient caregiv er patient and caregiver}}. Face to face discussion lasted for a duration of ___ minutes. [email or web address] Not available 10/23/2024 13:54:25 Reason for Referral None Reported. Results Created Date Observation Date Name Description Value Unit Range Abnormal Flag Note LastModifiedBy Organization Detail LastModifiedTime 10/25/1910/24/2024 pulse oxime try* Result 97 Not Available [facility] [address] [facility] [address], [place], [address], 10/23/2024 13:56:41 Result Notes None recorded. Problems Name Problem SNOMED Code Status Onset Date Resolution Date Notes Provider Name and Address Organization Details Recorded Time History of diverticu litis 746225164009 100 Active 2017 Not Available [facility] 2 12:19:10 Low back pain 928528257 Active 2017 Not Available [facility] 2 12:19:10 Atrial fibrillat ion 97275558 Active 2020 Not Available [facility] 2 12:19:10 Depressiv e disorder 55402535 Active 2020 Not Available [facility] 2 12:19:10 Osteoarth ritis of right knee joint 869626444911 100 Active 2020 Not Available [facility] 2 12:19:10 Obstructi ve sleep apnea syndrome 22119720 Active 2020 Not Available [facility] 2 12:19:10 Acute cervical sprain 865627401 Active 2021 Not Available [facility] 2 12:19:10 Strain of neck muscle 541482523 Active 2021 Not Available [facility] 2 12:19:10 Derangeme nt of medial meniscus 683362095 Active 2021 Jairo Nichole, DO [address] [facility], [place], [address], [facility] 2 21:46:21 Pain of right knee joint 205123472353 100 Active 2021 Jairo Nichole DO [address] [place], [address], [facility] 2 10:07:06 Acute sinusitis 07178788 Active 2022 NICOLE CHUN [address] [place] [address], [address], [facility] 3 15:41:52 Anxiety 39389551 Active 2022 Jairo Nichole DO [address] [place] [address], [address], [facility] 3 13:27:53 Abscess 198977859 Active 2022 NICOLE CHUN [address] [place] [address], [address], [facility] 3 16:00:08 Sialoaden itis 18405260 Active 2022 NICOLE CHUN [address] [place] [address], [address], [facility] 3 16:04:52 Postopera tive pain 295600773 Active 2022 Jairo Nichole DO [address] [place] [address], [address], [facility] 3 12:28:05 Hyperlipi demia 22732836 Active 2017 Not Available [facility] 2 12:19:10 Essential hypertens ion 50564511 Active 2017 Not Available [facility] 2 12:19:10 Tremor 14581677 Active 2023 Jairo Nichole DO [address] [place] [address], [address], [facility] 4 12:03:20 Acute otitis media 1803315 Active 2023 NICOLE CHUN [address] [place] [address], [address], [facility] 4 14:31:16 Traumatic injury 006357385 Active 2023 Jairo Nichole DO [address] [place] [address], [address], [facility] 4 13:34:41 Contusion of left hand 116640123885 97818 Active 2023 Jairo Nichole DO [address] [place] [address], [address], [facility] 4 14:06:24 Influenza 5015473 Active 2023 Jairo Nichole DO [address] [place] [address], [address], [facility] 4 13:14:43 Acute left otitis media 368955769 Active 2023 NICOLE CHUN [address] [place] [address], [address], [facility] 4 11:23:54 Nausea 719673817 Active 2023 NICOLE CHUN [address] [place] [address], [address], [facility] 4 11:25:33 Alveolar hypoventi lation 86748188 Active 2024 Jairo Nichole DO [address] [place] [address], [address], [facility] 5 14:15:10 Fatigue 86138761 Active 2024 Jairo Nichole DO [address] [place] [address], [address], [facility] 5 14:19:50 Problem Notes None recorded. Procedures Surgical History Date Name Laterality Status Provider Name and Address Organization Details Recorded Time 025 Corticosteroid Injection completed Jairo Nichole DO [address] [place] [address], [address], [facility] 09/05/2024 15:47:57 024 Corticosteroid Injection completed Jairo Nichole DO [address] [place] [address], [address], [facility] 05/14/2024 12:09:25 024 Corticosteroid Injection completed Jairo Nichole DO [address] [place] [address], [address], [facility] 01/06/2024 11:38:41 024 Corticosteroid Injection completed Jairo Nichole DO [address] [place] [address], [address], [facility] 08/16/2023 15:53:22 023 Corticosteroid Injection completed Jairo Nichole DO [address] [place] [address], [address], [facility] 05/23/2023 12:37:16 023 Corticosteroid Injection completed Jairo Nichole DO [address] [place] [address], [address], [facility] 03/11/2023 16:30:09 022 Corticosteroid Injection completed Jairo Nichole DO [address] [place] [address], [address], [facility] 05/03/2022 15:42:35 022 Corticosteroid Injection completed Jairo Nichole DO [address] [place] [address], [address], [facility] 03/10/2022 14:35:08 022 Corticosteroid Injection completed Jairo Nichole DO [address] [place] [address], [address], [facility] 09/22/2021 15:32:56 022 Corticosteroid Injection completed Jairo Nichole DO [address] [place] [address], [address], [facility] 07/27/2021 11:30:32 021 Corticosteroid Injection completed Jairo Nichole DO [address] [place] [address], [address], [facility] 03/23/2021 14:32:47 021 Corticosteroid Injection completed Jairo Nichole DO [address] [place] [address], [address], [facility] 09/12/2020 11:08:08 020 Corticosteroid Injection completed Jairo SergeyDuke Nichole, DO [address] [facility], [place], [address], [facility] 04/11/2020 15:27:33 Imaging Results None recorded. Procedure Notes None recorded. Medical Equipment None Reported. Allergies Allergen ID Allergen Name Allergen Category Reaction Reaction Severity Criticality Documentation Date Start Date Code Code System Note Provider Name and Address Organization Details Recorded Time 788 Flagyl medicatio n Not available Not available Not available 09/21/2017 6 RxNorm Ismael Dhruv saldana, [facility] 8 09:57:33 Medications Name Sig Start Date Stop Date Status Note LastModified by Organization Details LastModified Time amoxicillin 500 mg capsule TAKE 1 CAPSULE BY MOUTH EVERY 8 HOURS UNTIL FINISHED 03/07 completed Not Available Not Available Not Available bupropion HCl SR 150 mg tablet,12 hr sustained-r elease TAKE 1 TABLET BY MOUTH EVERY DAY 10/07 completed Not Available Not Available Not Available propranolol ER 160 mg capsule,24 hr,extended release TAKE 1 CAPSULE BY MOUTH EVERY DAY active Not Available Not Available No t Available atorvastati n 20 mg tablet TAKE 1 TABLET BY MOUTH EVERY DAY active Not Available Not Available No t Available azithromyci n 250 mg tablet TAKE 2 TABLETS (500 MG) BY ORAL ROUTE ONCE DAILY FOR 1 DAY THEN 1 TABLET (250 MG) BY ORAL ROUTE ONCE DAILY FOR 4 DAYS 03/30 completed Not Available Not Available Not Available ibuprofen 800 mg tablet TAKE 1 TABLET (800 MG TOTAL) BY MOUTH EVERY 8 HOURS NEEDED FOR PAIN 03/07 completed Not Available Not Available Not Available tizanidine 4 mg tablet TAKE 1 TABLET BY MOUTH THREE TIMES A DAY active Not Available Not Available No t Available hydrocodone 5 mg-acetamin ophen 325 mg tablet TAKE 1 TABLET BY MOUTH EVERY 6 HOURS FOR 4 DAYS NEEDED 03/07 completed Not Available Not Available Not Available meloxicam 15 mg tablet PRN WITH MEALS 09/16 completed Not Available Not Available Not Available prednisone 20 mg tablet Take 3 tabs X3 days, 2 Tabs X3 days , 1 Tab X3 days 02/14 completed Not Available Not Available Not Available amlodipine 5 mg tablet TAKE 1 TABLET BY MOUTH EVERY DAY active Not Available Not Available No t Available sulfamethox azole 800 mg-trimetho prim 160 mg tablet TAKE 1 TABLET BY MOUTH EVERY 12 HOURS FOR 10 DAYS 05/03 completed Not Available Not Available Not Available sildenafil 25 mg tablet Take 1 tablet every day by oral route for 30 days. 03/30 completed Not Available Not Available Not Available tramadol 50 mg tablet Take 1 tablet every 4-6 hours by oral route for 7 days. active Not Available Not Available No t Available sildenafil 100 mg tablet TAKE ONE TABLET BY MOUTH DAILY NEEDED NOT CVD active Not Available Not Available No t Available amoxicillin 500 mg tablet TAKE 2 TABLETS BY MOUTH STAT THEN 1 EVERY 8 HOURS UNTIL FINISHED 03/07 completed Not Available Not Available Not Available simvastatin 40 mg tablet TAKE 1 TABLET BY MOUTH EVERY DAY 05/26 completed Not Available Not Available Not Available ondansetron 8 mg disintegrat ing tablet PLACE 1 TABLET TWICE A DAY BY TRANSLING UAL ROUTE NEEDED FOR 14 DAYS. active Not Available Not Available No t Available amoxicillin 875 mg tablet TAKE 1 TABLET BY MOUTH EVERY 12 HOURS FOR 7 DAYS 03/07 completed Not Available Not Available Not Available lorazepam 0.5 mg tablet TAKE 1 TABLET BY MOUTH TWICE DAILY FOR 7 DAYS NEEDED active Not Available Not Available No t Available cephalexin 500 mg capsule TAKE 1 CAPSULE BY MOUTH THREE TIMES A DAY FOR 7 DAYS active Not Available Not Available No t Available omeprazole 20 mg capsule,del ayed release TAKE 1 CAPSULE BY MOUTH EVERY DAY active Not Available Not Available No t Available hydrochloro thiazide 25 mg tablet TAKE 1 TABLET BY MOUTH EVERY DAY DIRECTED 03/10 completed Not Available Not Available Not Available propranolol ER 120 mg capsule,24 hr,extended release TAKE 1 CAPSULE BY MOUTH EVERY DAY active Not Available Not Available No t Available albuterol sulfate HFA 90 mcg/actuati on aerosol inhaler INHALE 2 PUFFS INTO THE LUNGS EVERY 4 HOURS NEEDED FOR 30 DAYS active Not Available Not Available No t Available doxycycline hyclate 100 mg tablet Take 1 tablet twice a day by oral route. 02/14 completed Not Available Not Available Not Available amoxicillin 875 mg-potassiu m clavulanate 125 mg tablet TAKE 1 TABLET BY MOUTH EVERY 12 HOURS FOR 10 DAYS active Not Available Not Available No t Available oxycodone 5 mg tablet TAKE 1 TABLET BY MOUTH THREE TIMES DAILY FOR 7 DAYS 03/10 completed Not Available Not Available Not Available bupropion HCl XL 150 mg 24 hr tablet, extended release TAKE 1 TABLET BY MOUTH EVERY DAY active Not Available Not Available No t Available GaviLyte-G 236 gram-22.74 gram-6.74 gram-5.86 gram oral solution 09/06 completed Not Available Not Available Not Available Vitamin D3 50 mcg (2,000 unit) capsule Take 1 capsule every day by oral route. active Not Available Not Available No t Available Xarelto 20 mg tablet TAKE 1 TABLET BY MOUTH DAILY AT 5 PM 10/07 completed Not Available Not Available Not Available Eliquis 5 mg tablet TAKE 1 TABLET BY MOUTH TWICE A DAY active Not Available Not Available No t Available Fluarix Quad (PF) 60 mcg (15 mcg x 4)/0.5 mL IM syringe 02/18 completed Not Available Not Available Not Available Afluria Qd 2019- (36 mos up)(PF)60 mcg (15 mcg x4)/0.5 mL IM syringe 04/11 completed Not Available Not Available Not Available BinaxNOW COVID-19 Ag Self Test kit TEST DIRECTED TODAY 03/30 completed Not Available Not Available Not Available Vitals Date Recorded Body height Body mass index (BMI) Body weight Heart rate Oxygen saturation Oxygen saturation in Arterial blood by Pulse oximetry Systolic blood pressure Diastolic blood pressure Provider Name and Address Organization Details Last Updated DateTime 4 168.28 cm 38 kg/m2 995428. 39 g 47 /min 99 % 99 % 118 mm[Hg] 70 mm[Hg] Kenn Case MA [facility] 4 13:55:03 Date Recorded Body height Body mass index (BMI) Body weight Heart rate Oxygen saturation Oxygen saturation in Arterial blood by Pulse oximetry Systolic blood pressure Diastolic blood pressure Provider Name and Address Organization Details Last Updated DateTime 4 168.28 cm 38.8 kg/m2 058690. 43 g 45 /min 98 % 98 % 142 mm[Hg] 82 mm[Hg] Verónica Mercado MA [facility] 4 11:00:16 Date Recorded Body height Body mass index (BMI) Body weight Heart rate Oxygen saturation Oxygen saturation in Arterial blood by Pulse oximetry Systolic blood pressure Diastolic blood pressure Provider Name and Address Organization Details Last Updated DateTime 5 168.28 cm 38.8 kg/m2 721771. 35 g 49 /min 97 % 97 % 138 mm[Hg] 90 mm[Hg] Nikia Jackson [facility] 13:56:39 Social History Question Answer Notes LastModified by Organizat ion Details LastModified Time Tobacco Smoking Status Former Smoker Not Available [facility] 04/22/2020 03:36:24 What Was The Date Of Your Most Recent Tobacco Screening? 10/24/2024 [email or web address] Information not available 10/24/2024 Do You Use Any Illicit Or Recreational Drugs? No [email or web address] Information not available 11/19/2020 Do You Or Have You Ever Used Any Other Forms Of Tobacco Or Nicotine? No Information not available 04/27/2022 Sex: Unknown Functional Status None recorded. Mental Status None recorded. Family History Nothing Reported. Medical History No medical history recorded. Immunizations Vaccine Type Date Status Note Provider Nam e and Address Organization Details Recorded Time Influenza, split virus, quadrivalent, preservative 03/01/20 18 completed Not Available [facility] 01/08/2021 18:41:11 Tdap 11/22/19 21 completed Skye saldana [facility] 01/19/2021 09:35:17 Influenza, split virus, quadrivalent, preservative 03/17/20 21 completed Cori saldana [facility] 03/18/2021 13:41:55 COVID-19, mRNA, LNP-S, PF, 30 mcg/0.3 mL dose 04/12/20 21 completed Jairo Nichole, DO [address] [place], [address], [facility] 05/26/2021 16:21:15 zoster recombinant 07/31/19 22 completed Skye saldana [facility] 08/03/2021 08:24:10 Pneumococcal conjugate PCV20, polysaccharide [id number] conjugate, adjuvant, PF 07/31/19 22 completed Not Available [facility] 09/24/2022 03:01:06 COVID-19, mRNA, LNP-S, PF, 30 mcg/0.3 mL dose 10/28/19 22 completed Skye saldana [facility] 10/28/2021 13:51:30 zoster recombinant 11/06/19 22 completed Cori saldana [facility] 11/06/2021 12:26:43 Influenza, split virus, quadrivalent, preservative 04/06/20 22 completed Jairo Nihcole, [address] [facility], [place], [address], [facility] 04/27/2022 11:12:34 Influenza, split virus, quadrivalent, preservative 02/28/20 19 completed Not Available [facility] 01/08/2021 18:41:11 Influenza, split virus, quadrivalent, preservative 02/05/20 20 completed Not Available [facility] 01/08/2021 18:41:11 Influenza, split virus, quadrivalent, preservative 02/05/20 20 completed Not Available [facility] 01/08/2021 18:41:11 Influenza, split virus, quadrivalent, preservative 02/05/20 20 completed Not Available [facility] 01/08/2021 18:41:11 zoster live 07/02/19 16 completed Not Available [facility] 01/08/2021 18:41:10 Pneumococcal conjugate PCV 13 01/25/20 15 completed Not Available [facility] 01/08/2021 18:41:10 COVID-19, mRNA, LNP-S, PF, 30 mcg/0.3 mL dose 09/20/19 21 completed Not Available [facility] 01/08/2021 18:41:11 COVID-19, mRNA, LNP-S, PF, 30 mcg/0.3 mL dose 10/12/19 21 completed Not Available [facility] 01/08/2021 18:41:11 Past Encounters Encounter ID Performer Location Encounter Start Date Encounter Closed Date Diagnosis/Indication Diagnosis SNOMED-CT Code Diagnosis ICD10 Code Diagnosis Note [id number] Shaista Birmingham NP, [facility] [address] [facility],[place] [address] 09/21/2017 16:02:04 09/21/2017 16:43:33 Left upper quadrant pain 255126302 R10.12 Essential hypertension 75030960 I10 well controlled Hypercholesterolemia 136 10307 E78.00 completed lab work this am, await results [id number] Jairo Nichole [facility] [address] [facility],[place] [address] 11/07/2017 13:24:13 11/07/2017 14:32:19 Acute bronchitis 72014274 J20.9 Persistent cough 1749920 02 R05 Essential hypertension 41152408 I10 well controlled [id number] Jairo Nichole [facility] [address] [facility],[place] [address] 02/14/2018 08:46:44 02/14/2018 10:01:34 Hyperlipidemia 26736603 E78.2 Essential hypertension 04406873 I10 well controlled , d/c HCTZ History of diverticulitis 9597299312 99724 Z87.19 No recent [id number] Jairo Nichole [facility] [address] [facility],[place] [address] 05/24/2018 09:03:41 05/29/2018 10:53:39 Hyperlipidemia 96523141 E78.2 Essential hypertension 77512184 I10 well controlled , d/c HCTZ Vitamin D deficiency 347 03640 E55.9 Screening procedure 2012 5006 Z13.9 [id number] Jairo Nichole [facility] [address] [facility],[place] [address] 09/06/2018 14:09:25 09/06/2018 14:57:44 Essential hypertension 55649362 I10 here and doing well tolerates all meds without issue Hyperlipidemia 32507730 E78.5 cont simvastat lab reviewed Adult heal th examination 707744425 Z00.00 doing great and not having any issues [id number] Jairo Nichole [facility] [address] [facility] [address] [facility] [address] 02/19/2020 10:42:38 02/19/2020 11:29:07 Pain in right knee 5931062262 04762 M25.561 will eval with XR and possible MRI if needed Essential hypertension 94058565 I10 BP is excellent today well controlled [id number] Jairo Nichole [facility] [address] [facility],[place] [address] 04/11/2020 15:05:45 04/11/2020 15:38:57 Osteoarthritis of right knee joint [id number] 66316 M17.11 tolerat larisa inj [id number] Jairo Nichole [facility] [address] [facility],[place] [address] 06/18/2020 10:06:13 06/18/2020 11:19:59 Atrial fibrillation 62598724 I48.91 will continue on Xarelto and set up with cardiology Low back pain 766817802 M54.5 stable will cut back use of meloxicam Essential hypertension 08003208 I10 BP well controlled [id number] Jairo Nichole [facility] [address] [facility],[place] [address] 07/11/2020 10:52:49 07/11/2020 11:56:07 Cellulitis 974132565 L03.90 patient will start on course of abx as well as keep the area clean with warm water and soap and use warm compresses on the area he can use ibu and APAP for pain Abscess 144159687 L02.91 possible abscess that may require I&D, will evaluate on Tuesday to see if any effect with anbx hopefully will keep infection from worsening until we can see him in the office at that time patient agrees to this plan [id number] Jairo Duong Dhruv [facility] [address] [facility],[place] [address] 09/12/2020 10:48:25 09/12/2020 11:11:05 Osteoarthritis of right knee joint [id number] 14198 M17.11 tolerat larisa inj Screening for malignant neoplasm of skin 644300203 Z12.83 [id number] Jairo Fosterchato [facility] [address] [facility] [place] [address] 10/07/2020 10:12:27 10/07/2020 13:42:14 Pain in right knee 2918016630 49434 M25.561 will eval with XR and possible MRI if needed Essential hypertension 44938039 I10 BP well controlled [id number] Jairo Nichole [facility] [address] [facility], [place] [address] 10/17/2020 11:26:37 10/17/2020 15:12:17 Osteoarthritis of right knee joint 9008720997 58282 M17.11 he will be seeing ortho for this next fri Essential hypertension 88788767 I10 here and doing well tolerates all meds without issue Atrial fibrillation 4943 6004 I48.91 asymptomat ic and doing well on current regimen will cont current tx plan Low back pain 285818954 M54.5 stemming from his right knee [id number] Jairo Nichole [facility] [address] [facility], [place] [address] 11/19/2020 15:51:27 11/21/2020 09:10:57 Pre-surgery evaluation 794615885 Z01.818 The patient was seen in the office today for pre-op evaluation . All medical conditions on patient's problem list were addressed and are currently stable, no interventi on needed at this time. Based on history and physical performed, the patient is cleared for surgery. Essential hypertension 81970086 I10 BP well controlled on medication Atrial fibrillation 4943 6004 I48.0 stable, no recent episodes [id number] Jairo Nichole [facility] [address] [facility], [place] [address] 01/19/2021 14:39:17 01/19/2021 15:20:14 Atrial fibrillation 06169133 I48.91 asymptomat ic and doing well on current regimen will cont current tx plan Essential hypertension 64345831 I10 here and doing well ok at home tolerates all meds without issue History of diverticulitis 3166650586 66513 Z87.19 quiet Obstructiv e sleep apnea syndrome 31037832 G47.33 doing great [id number] Jairo Nichole [facility] [address] [facility] [place], [place] [facility] [place] [address] 03/23/2021 14:09:30 03/23/2021 14:43:05 Osteoarthritis of right knee joint 9377464047 63149 M17.11 larisa inj well leo [id number] Jairo Nichole [facility] [address] [facility],[place] [address] 05/26/2021 16:15:22 05/27/2021 16:49:12 Essential hypertension 48386468 I10 here and doing well ok at home tolerates all meds without issue Hyperlipidemia 70163811 E78.5 cont simvastat lab reviewed Atrial fibrillation 4943 6004 I48.91 asymptomat ic and doing well on current regimen will cont current tx plan Abdominal aortic aneurysm screening 087473889 Z13.6 Obstructiv e sleep apnea syndrome 45718148 G47.33 doing great Osteoarthr itis of right knee joint 6262661598 39359 M17.11 will order kenalog for early rory inj Primary er ectile dysfunction 932974539 N52.9 [id number] Jairo Nichole [facility] [address] [facility],[place] [address] 07/27/2021 11:02:15 07/27/2021 15:02:07 Osteoarthritis of right knee joint 0898036328 M17.11 kenalog inj well leo [id number] Jairo Nichole [facility] [address] [facility],[place] [address] 09/16/2021 13:58:12 09/18/2021 14:57:40 Acute cervical sprain 460600452 S13.4XXA stop NSAIDs, start tramadol [id number] Jairo Nichole [facility] [address] [facility], [place] [address] 09/22/2021 15:00:10 09/22/2021 15:41:53 Atrial fibrillation 14335190 I48.91 asymptomat ic and doing well on current regimen will cont current tx plan Osteoarthr itis of right knee joint 6316825132 M17.11 kenalog inj well leo Strain of neck muscle 36 2046820 S16.1XXD [id number] Jairo Nichole [facility] [address] [facility] [place] [address] 03/10/2022 14:03:01 03/10/2022 15:51:33 Osteoarthritis of right knee joint 6252689312 18613 M17.11 kenalog inj well leo Atrial fibrillation 4943 6004 I48.91 asymptomat ic and doing well on current regimen will cont current tx plan Essential hypertension 95031168 I10 here and doing well ok at home tolerates all meds without issue Obstructiv e sleep apnea syndrome 66002586 G47.33 doing great [id number] Jairo Nichole [facility] [address] [facility] [place], [place] [address] 04/27/2022 11:08:36 04/27/2022 11:51:31 Active or passive immunization 997996058 Z23 patient advised he is due for flu shot Adult heal th examination 605636241 Z00.00 doing great and not having any issues Hepatitis C screening 41 1894815 Z11.59 Advance care planning 71 5515294 Z71.89 done Hyperlipidemia 05960415 E78.5 cont simvastat lab reviewed [id number] Jairo Nichole [facility] [address] [facility], [place] [address] 05/03/2022 15:13:26 05/04/2022 08:14:39 Osteoarthritis of right knee joint 9559808090 66731 M17.11 kenalog inj well leo [id number] Jairo Nichole [facility] [address] [facility] [place], [place] [address] 03/11/2023 16:03:58 03/11/2023 16:42:12 Osteoarthritis of right knee joint 4588510027 92466 M17.11 kenalog inj well leo [id number] Jairo Nichole [facility] [address] [facility] [place] [address] 03/30/2023 15:17:33 03/30/2023 16:23:53 Abscess 046506592 L02.211 will set up with gen surg [facility] Atrial fibrillation 4943 6004 I48.21 stable, no recent episodes Sialoadenitis 49126770 K 11.23 will start with sucking on sour candy to help alleviate it [id number] Jairo Nichole [facility] [address] [facility] [place] [address] 05/03/2023 11:52:16 05/03/2023 12:31:52 Active or passive immunization 139083553 Z23 patient advised he is due for flu shot Adult heal th examination 213332359 Z00.00 doing great and not having any issues Obstructiv e sleep apnea syndrome 07980974 G47.33 doing great Atrial fibrillation 4943 6004 I48.21 asymptomat ic and doing well on current regimen will cont current tx plan [id number] Jairo Nichole [facility] [address] [facility] [place] [address] 05/23/2023 11:50:58 05/23/2023 13:41:30 Osteoarthritis of right knee joint 4172580026 06988 M17.11 kenalog inj well leo [id number] Jairo Nichole [facility] [address] [facility],[place] [address] 08/10/2023 11:42:02 08/12/2023 10:36:19 Essential hypertension 86061923 I10 here and doing well ok at home tolerates all meds without issue Hyperlipidemia 43549873 E78.5 cont simvastat lab reviewed Tremor 17261358 R25.1 [id number] Jairo Nichole [facility] [address] [facility],[place] [address] 08/16/2023 15:15:50 08/17/2023 14:56:57 Pain of right knee joint 6510748456 64925 M25.561 larisa well leo [id number] Jairo Nichole [facility] [address] [facility] [place] [address] 01/06/2024 11:03:32 01/06/2024 11:49:27 Pain of right knee joint 0631112517 58928 M25.561 larisa well leo [id number] Jairo Nichole DO [facility] [address] [facility] [address],[place] [address] 03/07/2024 13:41:46 03/07/2024 14:26:15 Contusion of left hand 7355890342 9367290 S60.222A cont conserv tx ice elevation and advil ok [id number] Jairo Nichole [facility] [address] [facility] [address],[place] [address] 05/02/2024 10:48:00 05/02/2024 11:32:16 Acute left otitis media 958476353 H65.02 start on abx for the ear infection Nausea 033298600 R11.0 will start ondansetro n for the intermitte nt nausea [id number] Jairo Nichole [facility] [address] [facility] [address],[place] [address] 05/14/2024 11:53:12 05/14/2024 12:18:20 Osteoarthritis of right knee joint 6436987048 89242 M17.11 kenalog inj well leo [id number] Jairo Nichole [facility] [address] [facility] [address],[place] [address] 09/05/2024 15:06:35 09/05/2024 15:59:03 Osteoarthritis of right knee joint 5079442170 56905 M17.11 kenalog inj well leo [id number] Jairo Nichole [facility] [address] [facility] [address],[place] [address] 10/24/2024 13:44:42 10/24/2024 14:34:40 Screening for malignant neoplasm of colon 545256109 Z12.11 cologuard ordered Obstructiv e sleep apnea syndrome 37559359 G47.33 doing great Atrial fibrillation 4943 6004 I48.21 asymptomat ic and doing well on current regimen will cont current tx plan Essential hypertension 74516444 I10 here and doing well ok at home tolerates all meds without issue Hyperlipidemia 17396267 E78.5 cont simvastat lab reviewed Well adult 227027611 Z00 .00 doing great and not having any issues Fatigue 74050192 R53.83 will chk lab Health Concerns Section Related Observation LastModified by Organization Detai ls LastModified Time None Recorded Concern Status LastModified by Organization Details LastModified Time None Recorded Advance Directives Directive None Recorded Payers Encounter Date Sequence Insurance Name Policy Number Policy Moss Covered Member ID Moss Member ID Guarantor Name 03/07/2024 1 [place] HMO) [id number] Gene P Ethier [id number] Gene Ethier 05/02/2024 1 [place] HMO) [id number] Gene P Ethier [id number] Gene Ethier 05/14/2024 1 [place] HMO) [id number] Gene P Ethier [id number] Gene Ethier 09/05/2024 1 [place] HMO) [id number] Gene P Ethier [id number] Gene Ethier 10/24/2024 1 [place] HMO) [id number] Gene P Ethier [id number] Gene Ethier Notes Date Note Type Note Provider Name and Address Organization Details Recorded Time 03/07/20 24 text/htm l had a hand injury was mowing and was hit in the hadn by a line drive golf ballstruck dorsum of handwent to ER sat and xrays negative for hfracturehas a great deal of swelling of entire hand and ecchymosis ofthe dorsum of hand espdid break the skin and is still oozing Jairo Nichole DO [address] [place], [address], [facility] 03/07/2024 14:07:59 05/02/20 24 text/htm l c/o left ear pain L ear pain x 2 dayshas an ear infection will start on zofran for the nausea intermittently was sick a few weeks agoprobably prompted the inflammation in the ears, leading to current infection NICOLE CHUN [address] [place], [address], [facility] 05/02/2024 11:30:06 05/14/20 24 text/htm l here for rechk and relates right knee is not great and getting worse Jairo Nichole, DO [address] [place], [address], [facility] 05/14/2024 12:17:41 09/06/19 25 text/htm l here for right knnee larisa inj Jairo Nichole, DO [address] [place], [address], [facility] 09/05/2024 15:48:33 10/25/19 text/htm l Care Management - Atrial FibrillationReported bypatient.Medications:comp liant with medication Prior Imaging:echocardiogram; recent ECG Associated Symptoms:no dizziness; no chest pain; no easy bruisability; no rapid heart rateCare Management - HyperlipidemiaReported bypatient.Control:usually well controlled; improving; at goal Complications:no coronary artery disease; no heart attack; no cardiovascular disease; no pancreatitis; no strokeCare Management - HypertensionReported bypatient.Self Care:not under emotional stress Severity:symptoms are improving; does not interfere with daily activities Associated Symptoms:no dizziness; no lightheadedness; no chest pain; no shortness of breath; no palpitations; no edema; no calf muscle cramps; no blurred vision; no confusion; no headaches; no fatigueMedicare Annual Wellness VisitReported bypatient.Diet and Nutrition:healthy diet Fracture Risk:no history of fractures; no recent explained fracture; no sudden unexplained fractures; no previous musculoskeletal injuries Physical Activity:exercises on a regular basis; recent increase in physical activity; good physical condition Depression Risk:never feels sad, empty, or tearful; no loss of interest in activities; no significant changes in weight; no sleep disturbances or insomnia; no agitation; no loss of energy; no feelings of worthlessness or guilt; no thoughts of suicide; no history of depression; no history of mood disorders Orientation:no disorientation to time; no disorientation to date; no disorientation to place Concentration and Memory:no decreased concentrating ability; no memory lapses or loss; does not forget words Speech/Motor difficulties:no speech difficulties; no difficulty expressing formulated concepts; no difficulty with fine manipulative tasks; no difficulty writing/copying; no slowed reaction time; does not knock things over when trying to pick them up Hearing:no loss of hearing Vision:no vision problems Activities of Daily Living:able to bathe with limited or no assistance; able to contol urination and bowels; able to dress with limited or no assistance; able to feed self with limited or no assistance; able to get out of chair or bed with limited or no assistance; able to groom with limited or no assistance; able to toilet with limited or no assistance Instrumental Activities of Daily Living:able to do house work with limited or no assistance; able to grocery shop with limited or no assistance; able to manage medications with limited or no assistance; able to manage money with limited or no assistance; able to prepare meals with limited or no assistance; able to use the phone with limited or no assistance Falls Risk Assessment:no frequent falls while walking; no fall in the past year; no fall since last visit; no dizziness/vertigo Home Safety:no unsafe araseli hazzards; no unsafe stairs; no unsafe gas appliances; working smoke/CO detectors; wears protective head gear for biking/high velocity; use of seatbelts; practicing 'safer sex'; no vision or hearing loss while driving; no fire arms; has hand bars in the bathroom/shower; good lighting in the home wellness visit doing ok overallcpap is well controlled and his scores are consistently 99-100no cp no plapitations or afib sxno sobhas not lost wgt Jairo Nichole, DO [address] [facility], [place], [address], [facility] 10/24/2024 14:25:26
--- OUTSIDE RECORDS SUMMARY | 2024-10-24 15:39 | XMS_ITS | Continuity of Care Document ---
Author Organization [facility], [facility] Address [address] [place] [address] Assessment Encounter Date Assessment Date Assessment LastModified by Organization Details LastModified Time 10/24/2024 10/24/2024 Patient presente d to office [...] available Lab lipid panel, blood 2024 025 Formerly [facility], [address] [place] [address], [address], [place], [address], 10/24/2024 14:23:43 hemoglobi n A1c, QN, blood 2024 025 [facility], [address] [place] [address], [place], [address], 10/24/2024 14:25:14 CBC w/ auto diff 2024 025 Formerly [facility], [address], [address], [place], [address], 10/24/2024 14:23:44 CMP, serum or plasma 2024 025 Formerly [facility], [address] [place] [address], [address], [place], [address], 10/24/2024 14:23:43 vitamin B12, serum 2024 025 Formerly [facility], [address] [place] [address], [address], [place], [address], 10/24/2024 14:23:43 TSH, serum or plasma 2024 025 Formerly [facility], [address] [place] [address], [address] , [place], [address], 10/24/2024 14:23:44 testoster one, total, serum 2024 025 Formerly [facility], [address] [place] [address], [address], [place], [address], 10/24/2024 14:23:44 vitamin D, 25-hydrox y, total, serum 2024 025 Formerly [facility], [address] [place] [address], [address], [place], [address], 10/24/2024 14:23:44 Referral None recorded. Procedures None recorded. Surgeries None recorded. Imaging None recorded. Medication Orders None recorded. Patient TargetsNo targets recorded. Patient Instructions Encounter Date Encounter Id Patient Instructions Last Modified By Organization Details Last Modified Time 10/24/2024 [id number] pulse oximetry* Not available 10/24/2024 14:23:21 advance [...] pulse oxime try* Result 97 Not Available [facility] [address], [place], [address], 10/23/2024 13:56:41 Result Notes None recorded. Problems Name Problem SNOMED Code Status Onset Date Resolution Date Notes Provider Name and Address Organization Details Recorded Time History of diverticu litis 203620317600 100 Active 2017 Not Available [facility] 2 12:19:10 Low back pain 861802215 Active 2017 Not Available [facility] 2 12:19:10 Atrial fibrillat ion 67058176 Active 2020 Not Available [facility] 2 12:19:10 Depressiv e disorder 36036699 Active 2020 Not Available [facility] 2 12:19:10 Osteoarth ritis of right knee joint 098601510111 100 Active 2020 Not Available [facility] 2 12:19:10 Obstructi ve sleep apnea syndrome 53761625 Active 2020 Not Available [facility] 2 12:19:10 Acute cervical sprain 884504062 Active 2021 Not Available [facility] 2 12:19:10 Strain of neck muscle 204972348 Active 2021 Not Available [facility] 2 12:19:10 Derangeme nt of medial meniscus 560747738 Active 2021 Jairo Nichole DO [address] [place] [address], [address], [facility] 2 21:46:21 Pain of right knee joint 008254462912 100 Active 2021 Jairo Nichole DO [address] [place], [address], [facility] 2 10:07:06 Acute sinusitis 29778096 Active 2022 NICOLE CHUN [address] [place] [address], [address], [facility] 3 15:41:52 Anxiety 33346988 Active 2022 Jairo Nichole DO [address] [place] [address], [address], [facility] 3 13:27:53 Abscess 252890442 Active 2022 NICOLE CHUN [address] [place] [address], [address], [facility] 3 16:00:08 Sialoaden itis 00417337 Active 2022 NICOLE CHUN [address] [place] [address], [address], [facility] 3 16:04:52 Postopera tive pain 188163171 Active 2022 Jairo Nichole DO [address] [place] [address], [address], [facility] 3 12:28:05 Hyperlipi demia 43176407 Active 2017 Not Available [facility] 2 12:19:10 Essential hypertens ion 97957343 Active 2017 Not Available [facility] 2 12:19:10 Tremor 73306246 Active 2023 Jairo Nichole DO [address] [place] [address], [address], [facility] 4 12:03:20 Acute otitis media 3607578 Active 2023 NICOLE CHUN [address] [place] [address], [address], [facility] 4 14:31:16 Traumatic injury 283247367 Active 2023 Jairo Nichole DO [address] [place] [address], [address], [facility] 4 13:34:41 Contusion of left hand 497249988073 23830 Active 2023 Jairo Nichole DO [address] [place] [address], [address], [facility] 4 14:06:24 Influenza 2107314 Active 2023 Jairo Nichole DO [address] [place] [address], [address], [facility] 4 13:14:43 Acute left otitis media 653483133 Active 2023 NICOLE CHUN [address] [place] [address], [address], [facility] 4 11:23:54 Nausea 364152935 Active 2023 NICOLE CHUN [address] [place] [address], [address], [facility] 4 11:25:33 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 Procedures Surgical History Date Name Laterality Status Provider Name and Address Organization Details Recorded Time 025 Corticosteroid Injection completed Jairo Nichole DO [address] [place] [address], [address], [facility] 09/05/2024 15:47:57 024 Corticosteroid Injection completed Jairo Nichole DO [address] [place] [address], [address], [facility] 05/14/2024 12:09:25 024 Corticosteroid Injection completed Jairo Nichole DO [address] [place] [address], [address], [facility] 01/06/2024 11:38:41 024 Corticosteroid Injection completed Jairo Nichole, DO [address] [place] [address], [address], [facility] 08/16/2023 15:53:22 023 Corticosteroid Injection completed Jairo Nichole, DO [address] [place] [address], [address], [facility] 05/23/2023 12:37:16 023 Corticosteroid Injection completed Jairo Nichole DO [address] [place] [address], [address], [facility] 03/11/2023 16:30:09 022 Corticosteroid Injection completed Jairo Nichole DO [address] [place] [address], [address], [facility] 05/03/2022 15:42:35 022 Corticosteroid Injection completed Jairo Nichole DO [address] [place] [address], [address], [facility] 03/10/2022 14:35:08 022 Corticosteroid Injection completed Jairo Nichole, [address] [place] [address], [address], [facility] 09/22/2021 15:32:56 022 Corticosteroid Injection completed Jairo Nichole DO [address] [place] [address], [address], [facility] 07/27/2021 11:30:32 021 Corticosteroid Injection completed Jairo Nichole DO [address] [place] [address], [address], [facility] 03/23/2021 14:32:47 021 Corticosteroid Injection completed Jairo Nichole DO [address] [place] [address], [address], [facility] 09/12/2020 11:08:08 020 Corticosteroid Injection completed Jairo RinconDuke Fosterchato, DO [address], [place], [address], [facility] 04/11/2020 15:27:33 Imaging Results None recorded. Procedure Notes None recorded. Medical Equipment None Reported. Allergies Allergen ID Allergen Name Allergen Category Reaction Reaction Severity Criticality Documentation Date Start Date Code Code System Note Provider Name and Address Organization Details Recorded Time 788 Flagyl medicatio n Not available Not available Not available 09/21/2017 6 RxNorm Ismael Nichole les, [facility] 8 09:57:33 Medications Name Sig [...] Available Not Available Not Available Afluria Qd (36 mos up)(PF)60 mcg (15 mcg x4)/0.5 [...] Updated DateTime 5 168.28 cm 38.8 kg/m2 231905. 35 g 49 /min 97 % 97 % 138 mm[Hg] 90 mm[Hg] [facility] 5 13:56:39 Social History Question Answer Notes LastModified by Organizat ion Details LastModified Time Tobacco Smoking Status Former Smoker Not Available [facility] 04/22/2020 03:36:24 What Was The Date Of Your Most Recent Tobacco Screening? 10/24/2024 [email or web address] Information not available 10/24/2024 Do You Use [...] quadrivalent, preservative 03/01/20 18 completed Not Available [facility] 01/08/2021 18:41:11 Tdap 11/22/19 21 completed Skye saldana [facility] 01/19/2021 09:35:17 Influenza, split virus, quadrivalent, preservative 03/17/20 [facility] 13:41:55 COVID-19, mRNA, LNP-S, PF, 30 mcg/0.3 mL dose 04/12/20 21 completed Jairo Nichole DO [address] [place], [address], [facility] 05/26/2021 16:21:15 zoster recombinant 07/31/19 22 [facility] 08:24:10 Pneumococcal conjugate PCV20, polysaccharide [id number] conjugate, adjuvant, PF 07/31/19 22 completed Not Available [facility] 09/24/2022 03:01:06 COVID-19, mRNA, LNP-S, PF, 30 mcg/0.3 mL dose 10/28/19 22 completed Skye saldana [facility] 10/28/2021 13:51:30 zoster recombinant 11/06/19 22 [facility] 11/06/2021 12:26:43 Influenza, split virus, quadrivalent, preservative 04/06/20 22 completed Jairo Nichole DO [address] [place], [address], [facility] 04/27/2022 11:12:34 Influenza, split virus, quadrivalent, preservative 02/28/20 19 completed Not Available [facility] 01/08/2021 18:41:11 Influenza, split virus, quadrivalent, preservative 02/05/20 20 completed Not Available [facility] 01/08/2021 18:41:11 Influenza, split virus, quadrivalent, preservative 02/05/20 20 completed Not Available [facility] 01/08/2021 18:41:11 Influenza, split virus, quadrivalent, preservative 02/05/20 20 completed Not Available [facility] 01/08/2021 18:41:11 zoster live 07/02/19 16 completed Not Available [facility] 01/08/2021 18:41:10 Pneumococcal conjugate PCV 13 01/25/20 15 completed Not Available [facility] 01/08/2021 18:41:10 COVID-19, mRNA, LNP-S, PF, 30 mcg/0.3 mL dose 09/20/19 21 completed Not Available [facility] 01/08/2021 18:41:11 COVID-19, mRNA, LNP-S, PF, 30 mcg/0.3 mL dose 10/12/19 21 completed Not Available [facility] 01/08/2021 18:41:11 Past Encounters Encounter ID Performer Location Encounter Start Date Encounter Closed Date Diagnosis/Indication Diagnosis SNOMED-CT Code Diagnosis ICD10 Code Diagnosis Note [id number] Jairo Nichole DO [facility] [address] [address] 10/24/2024 13:44:42 10/24/2024 14:34:40 Screening for malignant neoplasm of colon 321044628 Z12.11 cologuard ordered Obstructiv e sleep apnea syndrome 39795140 G47.33 doing great Atrial fibrillation 4943 6004 I48.21 asymptomat ic and doing well on current regimen will cont current tx plan Essential hypertension 52961692 I10 here and doing well ok at home tolerates all meds without issue Hyperlipidemia 72350176 E78.5 cont simvastat lab reviewed Well adult 267428547 Z00 .00 doing great and not having any issues Fatigue 00030908 R53.83 will chk lab Health Concerns Section Related Observation LastModified by Organization Detai ls LastModified Time None Recorded Concern Status LastModified by Organization Details LastModified Time None Recorded Payers Encounter Date Sequence Insurance Name Policy Number Policy Moss Covered Member ID Moss Member ID Guarantor Name 10/24/2024 1 [facility]: MEDICARE HMO BLUE (MEDICARE REPLACEMENT HMO) [id number] Gene P Ethier [id number] Gene Ethier Notes Date Note Type Note Provider Name and Address Organization Details Recorded Time 10/25/19 25 text/htm l Care Management - Atrial FibrillationReported [...] not lost wgt Jairo Nichole, DO [address] [facility], [place], [address], [facility] 10/24/2024 14:25:26
[2024-10-24 18:07] LABS: MANUAL DIFF FLAG NO
[2024-10-24 18:16] LABS: Basophils Percent Auto 0.4 % (0-2); Eosinophils Absolute Auto 0.2 X10*3/uL (0.0-0.4); Eosinophils Percent Auto 1.6 % (0-4); Hematocrit 48.8 % (42.0-52.0); Hemoglobin 16.9 g/dl (14.0-18.0); Imm Gran Abs Auto 0.04 X10*3/uL (0.00-0.03); Imm Gran Pct Auto 0.4 % (0.0-0.4); Lymphocytes Absolute Auto 1.6 X10*3/uL (1.2-4.9); Lymphocytes Percent Auto 15.8 % (20-40); Mean Corpuscular HGB Conc 34.6 g/dl (31.0-36.0); Mean Corpuscular Hemoglobin 29.5 pg (27.0-33.0); Mean Corpuscular Volume 85.3 fL (80.0-98.0); Mean Platelet Volume 10.7 fL (9.4-12.4); Monocytes Absolute Auto 0.8 X10*3/uL (0.1-1.2); Neutrophils Absolute Auto 7.6 x10*3/uL (2.0-8.3); Neutrophils Percent Auto 73.8 % (45-73); Platelet Count 301 X10*3/uL (160-400); Red Blood Count 5.72 X10*6/uL (4.60-5.80); Red Cell Distribution Width 12.9 % (11.0-16.0); White Blood Count 10.3 X10*3/uL (4.8-10.8)
[2024-10-24 18:45] LABS: Albumin Level 4.5 g/dL (3.5-5.0); Alkaline Phosphatase 143 U/L (39-117); Anion Gap 12 (12-20); Aspartate Amino Transferase 38 U/L (5-37); Bilirubin Total 0.7 mg/dL (0.0-1.0); Blood Urea Nitrogen 17 mg/dL (9-16); Calcium 9.7 mg/dL (8.4-10.2); Carbon Dioxide 24 mmol/L (22-29); Chloride 108 mmol/L (96-108); Cholesterol 168 mg/dL (<200); Estimated Glomerular Filt Rate 55; Glucose Random 78 mg/dL (60-115); HDL Cholesterol 41 mg/dL (>40); LDL Cholesterol Calculated 96 mg/dL (<100); Potassium 3.9 mmol/L (3.3-5.1); Sodium 140 mmol/L (135-145); Total Protein 7.2 g/dL (6.5-8.0); Triglycerides 157 mg/dL (<150)
[2024-10-24 18:50] LABS: Alanine Aminotransferase 39 U/L (0-40)
[2024-10-24 18:58] LABS: Vitamin D 25-OH Total 114.6 ng/mL (>30)
[2024-10-24 19:02] LABS: Vitamin B12 253 pg/mL (200-900)
[2024-10-25 05:27] LABS: Estimated Average Glucose 105 mg/dL; Hemoglobin A1C 152.5143 umol/L; Hemoglobin A1c % 5.3 % (<6.0); Total Hemoglobin (HGBA1C) 4401.9687 umol/L
[2024-10-28 16:14] LABS: Testosterone, Total 413 ng/dL (250-1100)
== END 2024-10-24 14:27 | disposition home or self-care (01) ==
LOC: HO.MANLDS 14:26
PROVIDERS: Visit Provider Internal Medicine
DX: Z00.00 Encounter for general adult medical examination without abnormal findings (principal); Z13.1 Encounter for screening for diabetes mellitus; E78.5 Hyperlipidemia, unspecified; R53.83 Other fatigue
CPT/HCPCS: 36415; 80053; 80061; 82306; 82607; 83036; 84403; 84443; 85025

== ENCOUNTER 2024-10-30 10:26 | Outpatient (REF) | payer MEDICARE, MEDICAID, SELFPAY ==
[2024-10-30 11:43] LABS: Venous Blood Gas Refer to POC result
[2024-10-30 11:44] LABS: VBG HCO3 27 mmol/L (22-26); VBG pCO2 43 mmHg; VBG pO2 45 mmHg
== END 2024-10-30 10:27 | disposition home or self-care (01) ==
LOC: HO.LAB 10:26
PROVIDERS: PCP Internal Medicine; Visit Provider Internal Medicine
DX: G47.33 Obstructive sleep apnea (adult) (pediatric) (principal)
CPT/HCPCS: 36415; 82803; 99212

== ENCOUNTER 2024-10-30 10:26 | Outpatient (AMB) | payer MEDICARE, MEDICAID, SELFPAY ==
[2024-10-30 10:33] VITALS: BP 120/90; PULSE 55; O2SAT 97; BMI 34.8
--- NOTE | 2024-10-30 10:33 | MHC.OFFVIS ---
Vital Signs 10/30/24 10:33 Height 5 ft 9 in Weight 235 lb 14.314 oz BMI 34.8 BP 120/90 H Blood Pressure Location Lt brachial Position Sitting Pulse 55 Pulse Source Pulse Oximeter Pulse Oximetry (%) 97 Oxygen Delivery Method Room Air Intake Visit Reasons: copd Intake Note: pt is here for follow up and is doing excellent. 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 HE USES CPAP RELIGIOUSLY AND SLEEPS WELL. HAS NO ISSUES WITH THE CPAP MASK OR CPAP DEVICE. DURING THE DAYTIME REMAINS ALERT AND ACTIVE WITHOUT ANY DAYTIME SLEEPINESS. HE IS USING THE CPAP AT NIGHT UP TO 8 HOURS ON AN AVERAGE. BECAUSE OF HIS GROSS OBESITY HE IS KNOWN TO HAVE SOME SLEEP-RELATED HYPOVENTILATION , AND COMPLIANCE REPORTS HAVE BEEN SHOWING MINIMAL RESIDUAL CENTRAL APNEA. HE USES LORAZEPAM 0.5 MG B.I.D. ONLY P.R.N. ALSO USES BUPROPION 150 MG DAILY AND TIZANIDINE 4 MG B.I.D. BUT HE DENIES USING ANY NARCOTICS. [facility] Medical History Hypoventilation associated with obesity Hypersomnia, unspecified PATTIE (obstructive sleep apnea) Obesity (BMI 30-39.9) Paroxysmal atrial fibrillation Anxiety and depression Hyperlipidemia Atrial fibrillation with rapid ventricular response Diverticulitis HTN (hypertension) Surgical History Hx of knee surgery Social History Household Members: Spouse Housing: House Do you presently have visiting nurse or other home services: No Alcohol intake: never Patient Tobacco Use Status: Former Tobacco user Years Smoked: 35 Substance Use Type: Marijuana service: No Review of Systems Const All systems reviewed & are unremarkable except as noted in HPI and below Eyes Reports no additional complaints ENT Reports no additional complaints Card Denies chest pain, Denies irregular heart rhythm and Denies leg edema Resp Reports no additional complaints GI Reports heartburn (INTERMITTENT, WELL CONTROLLED) Reports no additional complaints Musc Reports no additional complaints Skin/Breast Reports system reviewed and no additional complaints, except as documented Neuro Reports no additional complaints Psych Reports anxiety (MILD OFF AND ON) Endo Reports no additional complaints Cuong/Lymph Reports no additional complaints Physical Exam Vital Signs: Last Vital Signs Pulse 55 10/30/24 10:33 BP 120/90 H 10/30/24 10:33 Pulse Ox 97 10/30/24 10:33 Oxygen Delivery Method Room Air 10/30/24 10:33 BMI result Body Mass Index 34.8 WEIGHT DOWN BY 3 LB AND HE LOOKS VERY HEALTHY. Const General: healthy appearing, comfortable, no acute distress, alert and awake Orientation/consciousness: patient oriented x3 HEENT Head: Yes normal to inspection General nose exam: No nasal polyps present and No nasal discharge present Face and sinus: Yes sinuses nontender Mouth: oropharynx normal Throat: Yes posterior oropharynx normal Eyes General: appearance normal, both eyes and all related structures Neck Neck: Yes normal visual inspection, Yes no lymphadenopathy, Yes trachea midline and Yes no JVD Thyroid: Thyroid normal Chest Chest palpation & inspection: normal inspection of the chest, normal palpation of entire chest wall and no tenderness Resp Other: Percussion note is resonant, good breath sounds and equal on both sides, no wheezes rhonchi or crepitations Cardio Palpation: normal PMI Rate: regular rate Rhythm: regular rhythm Heart sounds: no gallops and no murmurs Peripheral pulses: Peripheral pulses 2+ throughout GI Palpation (GI): Soft to palpation, nontender, No hepatosplenomegaly present and no masses Auscultation: normal bowel sounds Back/Spine/Pelvis Thoracic/Lumbar Spine: thoracic and lumbar spine normal to inspection Skin General skin exam: no rashes or lesions noted Neuro General: patient oriented x3 and no focal motor deficits Cranial nerves: Yes CN's II-XII intact bilaterally Extrem General: Yes normal to inspection, Yes no clubbing, cyanosis or edema and Yes no calf tenderness Psych Appearance: grossly normal and well kempt Speech and movement: Normal speech and movement present Results Reviewed Results Reviewed: COMPLIANCE REPORT FOR THE LAST 30 NIGHTS IS REVIEWED. HE HAS BEEN USING CPAP 30/30 NIGHTS, 100%, AVERAGE USE IT PER NIGHT 8 HOURS 3 MINUTES WHICH IS EXCELLENT. PRESSURE USED IS 12-13 CM. NO SIGNIFICANT AIR LEAK. RESIDUAL AHI 9.6 AND IT IS PREDOMINANTLY DUE TO CENTRAL APNEAS. VBGs PH=7.40 PCO2 43 PO2 45 HCO3 27 Assessment & Plan Assessment & Plan (1) Hypoventilation associated with obesity: Comment: HE CONTINUES TO HAVE SIGNIFICANT NUMBER OF CENTRAL APNEA SUGGESTING NOCTURNAL HYPOVENTILATION. RESIDUAL AHI 9.6. Code(s): E66.2 - Morbid (severe) obesity with alveolar hypoventilation Category: Medical Plan: PATIENT BRIEF ABOUT THIS, HE DOES NOT FEEL HAVING ANY NEGATIVE EFFECTS. VENOUS BLOOD GAS STUDY ORDERED TO MAKE SURE THAT HE IS NOT RETAINING CO2........... ( NORMAL PCO2 43 ) (2) PATTIE (obstructive sleep apnea): Comment: OBSTRUCTIVE SLEEP APNEA IS WELL TREATED WITH USE OF CPAP AT THIS TIME. THIS PRESENCE OF CENTRAL APNEAS, NOT ANY WORSE FROM BEFORE. Code(s): G47.33 - Obstructive sleep apnea (adult) (pediatric) Category: Medical Plan: CONTINUE TO USE THE CPAP REGULARLY Orders: Orders Venous Blood Gas Today E66.2 - Morbid (severe) obesity with alveolar hypoventilation, G47.33 - Obstructive sleep apnea (adult) (pediatric) Coding Level of Care Code Est Pt Level 3 (18115) Diagnoses Hypoventilation associated with obesity E66.2 PATTIE (obstructive sleep apnea) G47.33
--- OUTSIDE RECORDS SUMMARY | 2024-10-30 11:32 | XMS_ITS | Data Portability ---
Author Organization [facility], Home Service Address [address] [place] [address] Assessment Encounter Date Assessment Date Assessment LastModified by Organization Details LastModified Time 03/07/2024 03/07/2024 [id number] [place] [id number] (SAUSAGE STRINGER) : INO LOW MUST MEET 2 OF [...] COVERED Not available 03/07/2024 14:05:37 05/14/2024 05/14/2024 [id number] [place] [id number] (SAUSAGE STRINGER) : INO LOW MUST MEET 2 OF [...] Organization Details Last Modified Time Details Appointments None recorded. Lab lipid panel, blood 2024 025 [facility], [address] [place] [address], [facility] D, [place], [address], 14:23:43 hemoglobin A1c, QN, blood 2024 025 [facility], [address] [place] [address], [address], 14:25:14 CBC w/ auto diff 2024 025 [facility], [address] [place] [address], [facility], [place], [address], 14:23:44 CMP, serum or plasma [address] [facility], [address] [place] [address], [facility] D, [place], [address], 12:08:02 vitamin B12, serum 2024 025 [facility], [address] [place] [address], [facility], [place], [address], 14:23:43 TSH, serum or plasma 2024 025 [facility], [address] [place] [address], [address], [place], [address], 14:23:44 testostero ne, total, serum [address] [facility], [address] [place] [address], [address], [place], [address], 13:02:45 vitamin D, 25-hydroxy , total, serum 2024 025 [facility], [address] [place] [address], [address], [place], [address], 14:23:44 Referral None recorded. Procedures None recorded. Surgeries None recorded. Imaging None recorded. Medication Orders ondansetro n 8 mg disintegra ting tablet [address] [facility] #[id number], [address] [place], [address], 4 11:26:47 amoxicilli n 875 mg-potassi um clavulanat e 125 [address] tablet [address] [facility] #[id number], [address] [place], [address], 4 11:26:48 Patient TargetsNo targets recorded. Patient Instructions Encounter Date Encounter Id Patient Instructions Last Modified By Organization Details Last Modified Time 10/24/2024 [id number] pulse oximetry* Not available 10/24/2024 14:23:21 advance [...] pulse oxime try* Result 97 Not Available [facility] [address] [facility] [address], [place], [address], 10/23/2024 13:56:41 Result Notes None recorded. Problems Name Problem SNOMED Code Status Onset Date Resolution Date Notes Provider Name and Address Organization Details Recorded Time History of diverticu litis 390194329448 100 Active 2017 Not Available [facility] 2 12:19:10 Low back pain 287152156 Active 2017 Not Available [facility] 2 12:19:10 Atrial fibrillat ion 92943236 Active 2020 Not Available [facility] 2 12:19:10 Depressiv e disorder 38250639 Active 2020 Not Available [facility] 2 12:19:10 Osteoarth ritis of right knee joint 719198830989 100 Active 2020 Not Available [facility] 2 12:19:10 Obstructi ve sleep apnea syndrome 77130028 Active 2020 Not Available [facility] 2 12:19:10 Acute cervical sprain 840448423 Active 2021 Not Available [facility] 2 12:19:10 Strain of neck muscle 741887193 Active 2021 Not Available [facility] 2 12:19:10 Derangeme nt of medial meniscus 263515117 Active 2021 Jairo Bartlett DO [address] [place] [address], [place], [address], [facility], [place], operated by [facility] 2 21:46:21 Pain of right knee joint 606219327723 100 Active 2021 Jairo Bartlett DO [address] [place], [address], [facility], [place], operated by [facility] 2 10:07:06 Acute sinusitis 69141100 Active 2022 NICOLE CHUN [address] [place], [address], [facility], [place], operated by [facility] 3 15:41:52 Anxiety 33592225 Active 2022 Jairo Bartlett DO [address] [place] [address], [address], [facility], [place], operated by [facility] 3 13:27:53 Abscess 500008394 Active 2022 NICOLE CHUN [address] [place] [address], [address], [facility], [place], operated by [facility] 3 16:00:08 Sialoaden itis 77459415 Active 2022 NICOLE CHUN [address] [place] [address], [address], [facility], [place], operated by [facility] 3 16:04:52 Postopera tive pain 582806429 Active 2022 Jairo Bartlett DO [address] [place] [address], [address], [facility], [place], operated by [facility] 3 12:28:05 Hyperlipi demia 43676790 Active 2017 Not Available [facility] 2 12:19:10 Essential hypertens ion 84549513 Active 2017 Not Available [facility] 2 12:19:10 Tremor 48151076 Active 2023 Jairo Bartlett DO [address] [place] [address], [address], [facility], [place], operated by [facility] 4 12:03:20 Acute otitis media 1759056 Active 2023 NICOLE CHUN [address] [place] [address], [address], [facility], [place], operated by [facility] 4 14:31:16 Traumatic injury 983529284 Active 2023 Jairo Bartlett DO [address] [place] [address], [address], [facility], [place], operated by [facility] 4 13:34:41 Contusion of left hand 478893341401 90970 Active 2023 Jairo Bartlett DO [address] [place] [address], [address], [facility], [place], operated by [facility] 4 14:06:24 Influenza 0710404 Active 2023 Jairo Bartlett DO [address] [place] [address], [address], [facility], [place], operated by [facility] 4 13:14:43 Acute left otitis media 862900145 Active 2023 NICOLE CHUN [address] [place] [address], [address], [facility] [place], operated by [facility] 4 11:23:54 Nausea 546513495 Active 2023 NICOLE CHUN [address] [place] [address], [address], [facility], [place], operated by [facility] 4 11:25:33 Alveolar hypoventi lation 48368754 Active 2024 Jairo Bartlett DO [address] [place] [address], [address], [facility] [place], operated by [facility] 5 14:15:10 Fatigue 56134319 Active 2024 Jairo Bartlett DO [address] [place] [address], [address], [facility], [place], operated by [facility] 5 14:19:50 Problem Notes None recorded. Procedures Surgical History Date Name Laterality Status Provider Name and Address Organization Details Recorded Time 025 Corticosteroid Injection completed Jairo Bartlett DO [address] [place] [address], [address], [facility], [place], [facility] 09/05/2024 15:47:57 024 Corticosteroid Injection completed Jairo Bartlett DO [address] [place] [address], [address], [facility], [place], [facility] 05/14/2024 12:09:25 024 Corticosteroid Injection completed Jairo Bartlett DO [address] [place] [address], [address], [facility] [place], operated by [facility] 01/06/2024 11:38:41 024 Corticosteroid Injection completed Jairo Bartlett, DO [address] [place] [address], [address], [facility] [place], operated [facility] 08/16/2023 15:53:22 023 Corticosteroid Injection completed Jairo Bartlett, DO [address] [place] [address], [address], [facility] [place], operated [facility] 05/23/2023 12:37:16 023 Corticosteroid Injection completed Jairo Bartlett DO [address] [place] [address], [address], [facility] [place], operated [facility] 03/11/2023 16:30:09 022 Corticosteroid Injection completed Jairo Bartlett DO [address] [place] [address], [address], [facility] [place], operated [facility] 05/03/2022 15:42:35 022 Corticosteroid Injection completed Jairo Bartlett DO [address] [place] [address], [address], [facility] [place], operated [facility] 03/10/2022 14:35:08 022 Corticosteroid Injection completed Jairo Bartlett DO [address] [place] [address], [address], [facility] [place], operated [facility] 09/22/2021 15:32:56 022 Corticosteroid Injection completed Jairo Bartlett DO [address] [place] [address], [address], [facility] [place], operated [facility] 07/27/2021 11:30:32 021 Corticosteroid Injection completed Jairo Bartlett DO [address] [place] [address], [address], [facility] [place], operated [facility] 03/23/2021 14:32:47 021 Corticosteroid Injection completed Jairo Bartlett DO [address] [place] [address], [address], [facility] [place], operated [facility] 09/12/2020 11:08:08 020 Corticosteroid Injection completed Jairo Bartlett DO [address] [place] [address], [address], [facility] [place], operated [facility] 04/11/2020 15:27:33 Imaging Results None recorded. Procedure Notes None recorded. Medical Equipment None Reported. Allergies Allergen ID Allergen Name Allergen Category Reaction Reaction Severity Criticality Documentation Date Start Date Code Code System Note Provider Name and Address Organization Details Recorded Time 788 Flagyl medicatio n Not available Not available Not available 09/21/2017 6 RxNorm Ismael Dhruv saldana [facility] 8 09:57:33 Medications Name [...] Available Not Available tizanidine 4 mg tablet Take 1 tablet(s) twice a day by oral route. 2024 active Not Available Not Available Not Avai lable hydrocodone 5 mg-acetamin ophen 325 mg tablet [...] Updated DateTime 4 168.28 cm 38 kg/m2 698723. 39 g 47 /min 99 % 99 % 118 mm[Hg] 70 mm[Hg] Kenn Kaur [facility] 4 13:55:03 Date Recorded Body height Body mass index (BMI) Body weight Heart rate Oxygen saturation Oxygen saturation in Arterial blood by Pulse oximetry Systolic blood pressure Diastolic blood pressure Provider Name and Address Organization Details Last Updated DateTime 4 168.28 cm 38.8 kg/m2 291794. 43 g 45 /min 98 % 98 % 142 mm[Hg] 82 mm[Hg] Verónica Mercado MA [facility] 4 11:00:16 Date Recorded Body height Body mass index (BMI) Body weight Heart rate Oxygen saturation Oxygen saturation in Arterial blood by Pulse oximetry Systolic blood pressure Diastolic blood pressure Provider Name and Address Organization Details Last Updated DateTime 5 168.28 cm 38.8 kg/m2 435049. 35 g 49 /min 97 % 97 % 138 mm[Hg] 90 mm[Hg] Nikia Jackson [facility] 5 13:56:39 Social History Question Answer Notes LastModified by Organizat ion Details LastModified Time Tobacco Smoking Status Former Smoker Not Available [facility] 04/22/2020 03:36:24 What Was The Date Of Your Most Recent Tobacco Screening? 10/24/2024 Information not available 10/24/2024 Sex: Unknown Functional Status Question Answer Note LastModified by Organizat ion Details LastModified Time Do you use any illicit or recreational drugs? No [email or web address] Information not available 11/19/2020 Do you or have you ever used any other forms of tobacco or nicotine? No Information not available 04/27/2022 Mental Status None recorded. Family History Nothing Reported. Medical History No medical history recorded. Immunizations Vaccine Type Date Status Note Provider Nam e and Address Organization Details Recorded Time Influenza, split virus, quadrivalent, preservative 03/01/20 18 completed Not Available [facility] 01/08/2021 18:41:11 Tdap 11/22/19 21 completed Skye saldana [facility] 01/19/2021 09:35:17 Influenza, split virus, quadrivalent, preservative 03/17/20 21 completed Cori saldana [facility] 03/18/2021 13:41:55 COVID-19, mRNA, LNP-S, PF, 30 mcg/0.3 mL dose 04/12/20 21 completed Jairo Bartlett, DO [address] [facility], [place], [address], [facility] [place], operated [facility] 05/26/2021 16:21:15 zoster recombinant 07/31/19 22 completed Skye saldana [facility] 08/03/2021 08:24:10 Pneumococcal conjugate PCV20, polysaccharide [id number] conjugate, adjuvant, PF 07/31/19 22 completed Not Available [facility] 09/24/2022 03:01:06 COVID-19, mRNA, LNP-S, PF, 30 mcg/0.3 mL dose 10/28/19 22 completed Skye saldana [facility] 10/28/2021 13:51:30 zoster recombinant 11/06/19 22 completed Cori saldana [facility] 11/06/2021 12:26:43 Influenza, split virus, quadrivalent, preservative 04/06/20 22 completed Jairo Bartlett DO [address] [facility], [place], [address], [facility] [place], operated [facility] 04/27/2022 11:12:34 Influenza, split virus, quadrivalent, preservative 02/28/20 19 completed Not Available [facility] 01/08/2021 18:41:11 Influenza, split virus, quadrivalent, preservative 02/05/20 20 completed Not Available [facility] 01/08/2021 18:41:11 Influenza, split virus, quadrivalent, preservative 02/05/20 20 completed Not Available [facility] 01/08/2021 18:41:11 Influenza, split virus, quadrivalent, preservative 02/05/20 20 completed Not Available [facility] 01/08/2021 18:41:11 zoster live 07/02/19 [...] Diagnosis Note [id number] Shaista Birmingham NP, S [facility] [address] [facility],[place] [address] 09/21/2017 16:02:04 09/21/2017 16:43:33 Left upper quadrant pain 247612069 R10.12 Essential hypertension 03277327 I10 well controlled Hypercholesterolemia 136 88410 E78.00 completed lab work this am, await results [id number] Jairo Bartlett [facility] [address] [facility],[place] [address] 11/07/2017 13:24:13 11/07/2017 14:32:19 Acute bronchitis 97394390 J20.9 Persistent cough 5103455 02 R05 Essential hypertension 75516457 I10 well controlled [id number] Jairo Bartlett [facility] [address] [facility],[place] [address] 02/14/2018 08:46:44 02/14/2018 10:01:34 Hyperlipidemia 27762419 E78.2 Essential hypertension 92399494 I10 well controlled , d/c HCTZ History of diverticulitis 3043180046 58705 Z87.19 No recent [id number] Jairo Bartlett [facility] Internal [facility] [address],[place] [address] 05/24/2018 09:03:41 05/29/2018 10:53:39 Hyperlipidemia 62895905 E78.2 Essential hypertension 86018040 I10 well controlled , d/c HCTZ Vitamin D deficiency 347 61231 E55.9 Screening procedure 2012 5006 Z13.9 [id number] Jairo SergeyDuke Bartlett [facility] Internal [facility] [address] [facility],[place] [address] 09/06/2018 14:09:25 09/06/2018 14:57:44 Essential hypertension 66064947 I10 here and doing well tolerates all meds without issue Hyperlipidemia 62316459 E78.5 cont simvastat lab reviewed Adult [facility] th examination 210406982 Z00.00 doing great and not having any issues [id number] Jairo Bartlett [facility] [address] [facility] [place],[address] [place] [address] 02/19/2020 10:42:38 02/19/2020 11:29:07 Pain in right knee 0667588038 60956 M25.561 will eval with XR and possible MRI if needed Essential hypertension 26668051 I10 BP is excellent today well controlled [id number] Jairo Bartlett [facility] [address] [facility] [place] [address] 04/11/2020 15:05:45 04/11/2020 15:38:57 Osteoarthritis of right knee joint 7288945981 11401 M17.11 [place] [id number] Jairo Bartlett [facility] Internal [facility] [address] [facility],[place] [address] 06/18/2020 10:06:13 06/18/2020 11:19:59 Atrial fibrillation 89710766 I48.91 will continue on Xarelto and set up with cardiology Low back pain 776452949 M54.5 stable will cut back use of meloxicam Essential hypertension 33874970 I10 BP well controlled [id number] Jairo Bartlett [facility] Internal [facility] [address] [facility], [place] [address] 07/11/2020 10:52:49 07/11/2020 11:56:07 Cellulitis 624684841 L03.90 patient will start on course of abx as well as keep the area clean with warm water and soap and use warm compresses on the area he can use ibu and APAP for pain Abscess 017980094 L02.91 possible abscess that may require I&D, will evaluate on Tuesday to see if any effect with anbx hopefully will keep infection from worsening until we can see him in the office at that time patient agrees to this plan [id number] Jairo Fosterchato [facility] Internal [facility] [address] [facility],[place] [address] 09/12/2020 10:48:25 09/12/2020 11:11:05 Osteoarthritis of right knee joint 3933193447 97880 M17.11 tolerat lairsa inj Screening for malignant neoplasm of skin 807443667 Z12.83 [id number] Jairo Bartlett [facility] [address] [facility],[place] [address] 10/07/2020 10:12:27 10/07/2020 13:42:14 Pain in right knee 2191518342 50302 M25.561 will eval with XR and possible MRI if needed Essential hypertension 13724902 I10 BP well controlled [id number] Jairo Bartlett [facility] [address] [facility] [place] [address] 10/17/2020 11:26:37 10/17/2020 15:12:17 Osteoarthritis of right knee joint 7970460538 66619 M17.11 he will be seeing ortho for this next fri Essential hypertension 76086703 I10 here and doing well tolerates all meds without issue Atrial fibrillation 4943 6004 I48.91 asymptomat ic and doing well on current regimen will cont current tx plan Low back pain 221577383 M54.5 stemming from his right knee [id number] Jairo Bartlett [facility] [address] [facility], [employer] [facility] [place] [place] [address] 11/19/2020 15:51:27 11/21/2020 09:10:57 Pre-surgery evaluation 653902983 Z01.818 The patient was seen in the office today for pre-op evaluation . All medical conditions on patient's problem list were addressed and are currently stable, no interventi on needed at this time. Based on history and physical performed, the patient is cleared for surgery. Essential hypertension 50562563 I10 BP well controlled on medication Atrial fibrillation 4943 6004 I48.0 stable, no recent episodes [id number] Jairo Bartlett [facility] [address] [facility], [place] [address] 01/19/2021 14:39:17 01/19/2021 15:20:14 Atrial fibrillation 87262524 I48.91 asymptomat ic and doing well on current regimen will cont current tx plan Essential hypertension 52702160 I10 here and doing well ok at home tolerates all meds without issue History of diverticulitis 1604135084 35035 Z87.19 quiet Obstructiv e sleep apnea syndrome 97439924 G47.33 doing great [id number] Jairo Bartlett [facility] [address] [facility] [place],[address] [place] [address] 03/23/2021 14:09:30 03/23/2021 14:43:05 Osteoarthritis of right knee joint 6145208168 58563 M17.11 larisa inj well leo [id number] Jairo Bartlett [facility] [address] [facility], [place] [address] 05/26/2021 16:15:22 05/27/2021 16:49:12 Essential hypertension 47784678 I10 here and doing well ok at home tolerates all meds without issue Hyperlipidemia 71019127 E78.5 cont simvastat lab reviewed Atrial fibrillation 4943 6004 I48.91 asymptomat ic and doing well on current regimen will cont current tx plan Abdominal aortic aneurysm screening 338064579 Z13.6 Obstructiv e sleep apnea syndrome 53134821 G47.33 doing great Osteoarthr itis of right knee joint 5478425239 59604 M17.11 will order kenalog for early rory inj Primary er ectile dysfunction 217432634 N52.9 [id number] Jairo Bartlett [facility] [address] [facility], [place] [address] 07/27/2021 11:02:15 07/27/2021 15:02:07 Osteoarthritis of right knee joint 1817536183 M17.11 kenalog inj well leo [id number] Jairo Bartlett [facility] [address] [facility], [place] [address] 09/16/2021 13:58:12 09/18/2021 14:57:40 Acute cervical sprain 309819342 S13.4XXA stop NSAIDs, start tramadol [id number] Jairo Bartlett [facility] [address] [facility], [place] [address] 09/22/2021 15:00:10 09/22/2021 15:41:53 Atrial fibrillation 82240235 I48.91 asymptomat ic and doing well on current regimen will cont current tx plan Osteoarthr itis of right knee joint 7410607617 88534 M17.11 kenalog inj well leo Strain of neck muscle 36 1413655 S16.1XXD [id number] Jairo Bartlett [facility] [address] [facility] [place], [place] [address] 03/10/2022 14:03:01 03/10/2022 15:51:33 Osteoarthritis of right knee joint 0208230998 77468 M17.11 kenalog inj well leo Atrial fibrillation 4943 6004 I48.91 asymptomat ic and doing well on current regimen will cont current tx plan Essential hypertension 64178915 I10 here and doing well ok at home tolerates all meds without issue Obstructiv e sleep apnea syndrome 17658471 G47.33 doing great [id number] Jairo Bartlett [facility] [address] [facility],[place] [address] 04/27/2022 11:08:36 04/27/2022 11:51:31 Active or passive immunization 176569042 Z23 patient advised he is due for flu shot Adult [facility] th examination 450315036 Z00.00 doing great and not having any issues Hepatitis C screening 41 0213051 Z11.59 Advance care planning 71 0086139 Z71.89 done Hyperlipidemia 84796139 E78.5 cont simvastat lab reviewed [id number] Jairo Bartlett [facility] [address] [facility], [place] [address] 05/03/2022 15:13:26 05/04/2022 08:14:39 Osteoarthritis of right knee joint 4588973163 17966 M17.11 kenalog inj well leo [id number] Jairo Bartlett [facility] [address] [facility], [place] [address] 03/11/2023 16:03:58 03/11/2023 16:42:12 Osteoarthritis of right knee joint 0080412426 16594 M17.11 kenalog inj well leo [id number] Jairo Bartlett [facility] [address] [facility], [place] [address] 03/30/2023 15:17:33 03/30/2023 16:23:53 Abscess 545747061 L02.211 will set up with gen surg through [facility] Atrial fibrillation 4943 6004 I48.21 stable, no recent episodes Sialoadenitis [id number] K 11.23 will start with sucking on sour candy to help alleviate it [id number] Jairo Bartlett [facility] Internal Medicine [address],[place] [address] 05/03/2023 11:52:16 05/03/2023 12:31:52 Active or passive immunization [id number] Z23 patient advised he is due for flu shot Adult heal th examination [id number] Z00.00 doing great and not having any issues Obstructiv e sleep apnea syndrome 82604112 G47.33 doing great Atrial fibrillation 4943 6004 I48.21 asymptomat ic and doing well on current regimen will cont current tx plan [id number] Jairo Ad Bartlett [facility] Internal Medicine [address],[place] [address] 05/23/2023 11:50:58 05/23/2023 13:41:30 Osteoarthritis of right knee joint [id number] 40892 M17.11 kenalog inj well leo [id number] Jairo Ad Bartlett [facility] Internal Medicine [address],[place] [address] 08/10/2023 11:42:02 08/12/2023 10:36:19 Essential hypertension 29746120 I10 here and doing well ok at home tolerates all meds without issue Hyperlipidemia 59098564 E78.5 cont simvastat lab reviewed Tremor 53290450 R25.1 [id number] Jairo Bartlett [facility] Internal Medicine [address],[place] [address] 08/16/2023 15:15:50 08/17/2023 14:56:57 Pain of right knee joint 1324702085 28138 M25.561 larisa well leo [id number] Jairo RinconDuke Bartlett [facility] Internal Medicine [address],[place] [address] 01/06/2024 11:03:32 01/06/2024 11:49:27 Pain of right knee joint 5888241953 91949 M25.561 larisa well leo [id number] Jairo Bartlett [facility] Internal Medicine [address] [facility] [address] [address] 03/07/2024 13:41:46 03/07/2024 14:26:15 Contusion of left hand [id number] S60.222A cont conserv tx ice elevation and advil ok [id number] Jairo Bartlett [facility] Internal Medicine [address] [facility] [address] [address] 05/02/2024 10:48:00 05/02/2024 11:32:16 Acute left otitis media 192601834 H65.02 start on abx for the ear infection Nausea 359964068 R11.0 will start ondansetro n for the intermitte nt nausea [id number] Jairo Bartlett [facility] Internal Medicine [address] [facility] [address] [place] [facility] [address] 05/14/2024 11:53:12 05/14/2024 12:18:20 Osteoarthritis of right knee joint 3435739639 15136 M17.11 kenalog inj well leo [id number] Jairo Bartlett [facility] Internal Medicine [address] [facility] [address] [place] [address] 09/05/2024 15:06:35 09/05/2024 15:59:03 Osteoarthritis of right knee joint 9190716249 96002 M17.11 kenalog inj well leo [id number] Jairo Bartlett [facility] Internal Medicine [address] [facility] [address],[place] [address] 10/24/2024 13:44:42 10/24/2024 14:34:40 Screening for malignant neoplasm of colon 769745764 Z12.11 cologuard ordered Obstructiv e sleep apnea syndrome 65087757 G47.33 doing great Atrial fibrillation 4943 6004 I48.21 asymptomat ic and doing well on current regimen will cont current tx plan Essential hypertension 10030167 I10 here and doing well ok at home tolerates all meds without issue Hyperlipidemia 12349536 E78.5 cont simvastat lab reviewed Well adult 345165873 Z00 .00 doing great and not having any issues Fatigue 98358953 R53.83 will chk lab Health Concerns Section Related Observation LastModified by Organization Detai ls LastModified Time None Recorded Concern Status LastModified by Organization Details LastModified Time None Recorded Advance Directives Directive None Recorded Payers Encounter Date Sequence Insurance Name Policy Number Policy Moss Covered Member ID Moss Member ID Guarantor Name 03/07/2024 1 [place] HMO) [id number] Gene P Ethier [id number] Gene Ethier 05/02/2024 1 [place] HMO) [id number] Gene P Ethier [id number] Gene Ethier 05/14/2024 1 [place] HMO) [id number] Gene P Ethier [id number] Gene Ethier 09/05/2024 1 [place] HMO) [id number] Gene P Ethier [id number] Gene Ethier 10/24/2024 1 [place] HMO) [id number] Gene P Ethier [id number] Gene Ethier Notes Date Note Type [...] the skin and is still oozing Jairo Bartlett DO [address] [place], [address], [facility] 03/07/2024 14:07:59 05/02/20 24 text/htm l c/o left ear pain L ear pain x 2 dayshas an ear infection will start on zofran for the nausea intermittently was sick a few weeks agoprobably prompted the inflammation in the ears, leading to current infection NICOLE CHUN [address] [place], [address], [facility] [place] Internal Medicine 05/02/2024 11:30:06 05/14/20 24 text/htm l here for rechk and relates right knee is not great and getting worse Jairo Bartlett, DO [address] [place], [address], [facility] [place], [facility] Internal Medicine 05/14/2024 12:17:41 09/06/19 25 text/htm l here for right knnee larisa inj Jairo Bartlett, DO [address] [place], [address], [facility], [place], [facility] Internal Medicine 09/05/2024 15:48:33 10/25/19 text/htm l [...] afib sxno sobhas not lost wgt Jairo Bartlett, DO [address] [facility], [place], [address], [facility] 10/24/2024 14:25:26
== END 2024-10-30 11:02 | disposition home or self-care (01) ==
LOC: HO.HPS 10:27
PROVIDERS: PCP Internal Medicine; Visit Provider Internal Medicine
DX: E66.2 Morbid (severe) obesity with alveolar hypoventilation (principal); G47.33 Obstructive sleep apnea (adult) (pediatric)
CPT/HCPCS: 99213

== ENCOUNTER 2025-04-11 09:34 | Outpatient (AMB) | payer MEDICARE, MEDICAID, SELFPAY ==
[2025-04-11 09:42] VITALS: BP 130/92; PULSE 46; O2SAT 98; BMI 34.3
--- NOTE | 2025-04-11 09:42 | A.OFFVIS_ITS ---
Vital Signs 04/11/25 09:42 Height 5 ft 9 in Weight 232 lb 9.403 oz BMI 34.3 BP 130/92 H Blood Pressure Location Lt brachial Position Sitting Pulse 46 L Pulse Source Pulse Oximeter Pulse Oximetry (%) 98 Oxygen Delivery Method Room Air Intake Visit Reasons: copd Intake Note: pt is here for follow up and breathing is well, and cpap is going well. Metal Wire Technician Required: No Principal Java Software Engineer: Principal Java Software Engineer offered & declined Allergies metronidazole (From Flagyl) Adverse Reaction (Intermediate, Verified 04/11/25 10:03) Confusion Medication List - Last Reconciled 04/11/25 by Chay Lucia MD albuterol sulfate 90 mcg/actuation 2 puffs inhalation Q4H PRN amlodipine 5 mg PO DAILY apixaban 5 mg PO BID atorvastatin 20 mg PO DAILY bupropion HCl SR 150 mg PO DAILY lorazepam 0.5 mg PO BID PRN omeprazole 20 mg PO DAILY propranolol ER 160 mg PO DAILY sildenafil 100 mg PO DAILY PRN tizanidine 4 mg PO BID HPI HPI copd: Details: is 70 years old gentleman who looks much younger than his age . He is moderately obese,, has mixed sleep apnea , treated very well with the application of CPAP/auto Pap mode . He is happy with the CPAP and say is he sleeps very well for at least 8 hours every night. 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 But keeps himself busy He uses the CPAP very regularly every night and sleeps good. Wakes up refreshed and denies any daytime sleepiness. He takes care of his sick at home. [facility] Medical History Hypoventilation associated with obesity Hypersomnia, unspecified PATTIE (obstructive sleep apnea) Obesity (BMI 30-39.9) Paroxysmal atrial fibrillation Anxiety and depression Hyperlipidemia Atrial fibrillation with rapid ventricular response Diverticulitis HTN (hypertension) Surgical History Hx of knee surgery Social History Household Members: Spouse Housing: House Do you presently have visiting nurse or other home services: No Alcohol intake: never Patient Tobacco Use Status: Former Tobacco user Years Smoked: 35 Substance Use Type: Marijuana service: No Review of Systems Const All systems reviewed & are unremarkable except as noted in HPI and below Eyes Reports no additional complaints ENT Reports no additional complaints Card Denies chest pain, Denies irregular heart rhythm and Denies leg edema Resp Reports no additional complaints GI Reports heartburn (INTERMITTENT, WELL CONTROLLED) Reports no additional complaints Musc Reports no additional complaints Skin/Breast Reports system reviewed and no additional complaints, except as documented Neuro Reports no additional complaints Psych Reports anxiety (MILD OFF AND ON) Endo Reports no additional complaints Cuong/Lymph Reports no additional complaints Physical Exam Vital Signs: Last Vital Signs Pulse 46 L 04/11/25 09:42 BP 130/92 H 04/11/25 09:42 Pulse Ox 98 04/11/25 09:42 Oxygen Delivery Method Room Air 04/11/25 09:42 BMI result Body Mass Index 34.3 WEIGHT DOWN BY 3 LB AND HE LOOKS VERY HEALTHY. Const General: healthy appearing, comfortable, no acute distress, alert and awake Orientation/consciousness: patient oriented x3 HEENT Head: Yes normal to inspection General nose exam: No nasal polyps present and No nasal discharge present Face and sinus: Yes sinuses nontender Mouth: oropharynx normal Throat: Yes posterior oropharynx normal Eyes General: appearance normal, both eyes and all related structures Neck Neck: Yes normal visual inspection, Yes no lymphadenopathy, Yes trachea midline and Yes no JVD Thyroid: Thyroid normal Chest Chest palpation & inspection: normal inspection of the chest, normal palpation of entire chest wall and no tenderness Resp Other: Percussion note is resonant, good breath sounds and equal on both sides, no wheezes rhonchi or crepitations Cardio Palpation: normal PMI Rate: regular rate Rhythm: regular rhythm Heart sounds: no gallops and no murmurs Peripheral pulses: Peripheral pulses 2+ throughout GI Palpation (GI): Soft to palpation, nontender, No hepatosplenomegaly present and no masses Auscultation: normal bowel sounds Back/Spine/Pelvis Thoracic/Lumbar Spine: thoracic and lumbar spine normal to inspection Skin General skin exam: no rashes or lesions noted Neuro General: patient oriented x3 and no focal motor deficits Cranial nerves: Yes CN's II-XII intact bilaterally Extrem General: Yes normal to inspection, Yes no clubbing, cyanosis or edema and Yes no calf tenderness Psych Appearance: grossly normal and well kempt Speech and movement: Normal speech and movement present Results Reviewed Results Reviewed: Compliance report for the last 30 nights reviewed. He has used 30/30 nights,. 100% Average use it per night. 8 hours 9 minutes There is no significant air leak. Residual AHI 11.5 and more than 50% of this is due to central events. Assessment & Plan Assessment & Plan (1) Obesity (BMI 30-39.9): Comment: CURRENT BMI= 34.3 , he has lost a few more lb of weight HE SAYS, HE CANNOT DO MUCH WALKING OR EXERCISE ON ACCOUNT OF HIS KNEE PROBLEMS . Code(s): E66.9 - Obesity, unspecified Category: Medical Plan: Encouraged to continue doing some daily exercise and watch the diet. (2) Hypoventilation associated with obesity: Comment: HE CONTINUES TO HAVE SIGNIFICANT NUMBER OF CENTRAL APNEA SUGGESTING NOCTURNAL HYPOVENTILATION. RESIDUAL AHI 11.5 He has no complaints related to this . He say is he is getting good sleep , Code(s): E66.2 - Morbid (severe) obesity with alveolar hypoventilation Category: Medical Plan: During the daytime he is advised to do deep breathing exercises with pursed lip technique and he does it very regularly. (3) PATTIE (obstructive sleep apnea): Comment: OBSTRUCTIVE SLEEP APNEA IS WELL TREATED WITH USE OF CPAP AT THIS TIME. THERE IS PRESENCE OF CENTRAL APNEAS, NOT ANY WORSE FROM BEFORE. AND DO NOT. BOTHER HIS SLEEP COMPLIANCE IS EXCELLENT . Code(s): G47.33 - Obstructive sleep apnea (adult) (pediatric) Category: Medical Plan: COMMENDED FOR GOOD COMPLIANCE AND ADVISED TO CONTINUE USING THE CPAP REGULARLY. CAUTIONED THAT HE SHOULD NOT USE ANY SEDATIVE OR NARCOTIC MEDS. Coding Level of Care Code Est Pt Level 3 (24466) Diagnoses Obesity (BMI 30-39.9) E66.9 Hypoventilation associated with obesity E66.2 PATTIE (obstructive sleep apnea) G47.33
--- OUTSIDE RECORDS SUMMARY | 2025-04-11 10:53 | XMS_ITS | Encounter Summary ---
Author Organization [facility] Address [address] [place] [address] [place] [address] Phone Care Team Providers Care Diamond Powder Technician Name Role Phone Jairo Bartlett Primary Care Provider [phone] Encounter Details Date Type Department Care Team (Late st Contact Info) Description 09/22/2017 Ancillary Orders Virtual Department [address] [place] [address] Shaista Birmingham, [employer] [address] [place] [address] Left upper quadrant pain Social History Tobacco Use Types Packs/Day Years Used Date Smoking Tobacco: Never Assessed Sex and Gender Information Value Date Recorded Sex Assigned at Not on file Legal Sex Male 9:55 PM EDT Gender Identity Not on file Sexual Orientation Not on file documented as of this encounter Plan of Treatment Not on file documented as of this encounter Results * CT ABDOMEN/PELVIS WITH CONTRAST (09/23/2017 12:31 PM EDT) Anatomical Region Laterality Modality Abdomen, Pelvis Computed Tomogra phy 09/23/2017 12:3 6 PM EDT Impressions 09/23/2017 12:41 PM EDT Diffuse colonic diverticulosis with minor findings of diverticulitis related to the distal left colon. No pericolonic abscess is evident currently. TOTAL CTDIvol: 15.40 mGy S/S: Left upper quadrant pain, diverticulosis, diverticulitis POS - [id number] Narrative 09/23/2017 12:41 PM EDT COMPARISON: CT abdomen pelvis January 02, 2011 TECHNIQUE: After the administration of oral and intravenous contrast, multidetector CT is obtained from dome of the liver through the inferior pubic rami. Multiplanar reformatted images generated. Automated exposure control utilized. FINDINGS: The lung bases are clear. No significant pleural fluid is seen. There is a cyst in the liver which is smaller in size than seen previously. This is in the right hepatic lobe. No dominant mass lesion of concern is seen. No bile duct dilatation is evident. The spleen is unremarkable. The pancreas appears normal. No adrenal masses are seen. What is likely a small subcentimeter cyst is evident in the lateral cortex of the mid right kidney. No hydronephrosis or nephrolithiasis is evident. No periaortic lymphadenopathy is seen. The urinary bladder is notable for some tethering toward the umbilicus. No calculus disease or mass lesion is noted. There are calcifications in the prostate gland. No pelvic lymphadenopathy is noted. There is scattered colonic diverticulosis with some minor infiltration evident in the distal left colon consistent with diverticulitis. No diverticular abscess is seen. The terminal ileum is unremarkable. There are moderate degenerative changes in the thoracolumbar spine. No acute compression fractures seen. Procedure Note Steve Banejree MD - 09/23/2017 COMPARISON: CT abdomen pelvis January 02, 2011 TECHNIQUE: After the administration of oral and intravenous contrast,multidetector CT is obtained from dome of the liver through the inferiorpubic rami. Multiplanar reformatted images generated. Automated exposurecontrol utilized. FINDINGS: The lung bases are clear. No significant pleural fluid is seen. There is a cyst in the liver which is smaller in size than seenpreviously. This is in the right hepatic lobe. No dominant mass lesion ofconcern is seen. No bile duct dilatation is evident. The spleen is unremarkable. The pancreas appears normal. No adrenal masses are seen. What is likely a small subcentimeter cyst is evident in the lateral cortexof the mid right kidney. No hydronephrosis or nephrolithiasis isevident. No periaortic lymphadenopathy is seen. The urinary bladder is notable for some tethering toward the umbilicus. Nocalculus disease or mass lesion is noted. There are calcifications in theprostate gland. No pelvic lymphadenopathy is noted. There is scattered colonic diverticulosis with some minor infiltrationevident in the distal left colon consistent with diverticulitis. Nodiverticular abscess is seen. The terminal ileum is unremarkable. There are moderate degenerative changes in the thoracolumbar spine. Noacute compression fractures seen. IMPRESSION: Diffuse colonic diverticulosis with minor findings of diverticulitisrelated to the distal left colon. No pericolonic abscess is evidentcurrently. TOTAL CTDIvol: 15.40 mGy S/S: Left upper quadrant pain, diverticulosis, diverticulitis POS - [id number] Shaista Birmingham [employer] IMG CT ABD/PELVIS Final Res ult documented in this encounter Visit Diagnoses Diagnosis Left upper quadrant pain Abdominal pain, left upper quadrant Left upper quadrant pain Abdominal pain, left upper quadrant documented in this encounter Care Teams Diamond Powder Technician Relationship Specialty Start Date End Date Jairo Bartlett DO [email or web address] PCP - General Internal Medicine 09/22/17 documented as of this encounter Additional Source Comments The information contained in this document represents components of the legal health record. It is not the complete legal health record.[facility]
--- OUTSIDE RECORDS SUMMARY | 2025-04-11 10:53 | XMS_ITS | Encounter Summary ---
Author Organization [facility] Address [address] [place] [address] Phone Care Team Providers Care Environmental Health Sanitarian Name Role Phone Jairo Bartlett DO Primary Care Provider [phone] Encounter Details Date Type Department Care Team (Late st Contact Info) Description 09/22/2017 Procedure Pass [facility], Ct Scan - [address] [address] Social History Tobacco Use Types Packs/Day Years Used Date Smoking Tobacco: Never Assessed Sex and Gender Information Value Date Recorded Sex Assigned at Not on file Legal Sex Male 9:55 PM EDT Gender Identity Not on file Sexual Orientation Not on file documented as of this encounter Plan of Treatment Not on file documented as of this encounter Visit Diagnoses Not on filedocumented in this encounter Care Teams Environmental Health Sanitarian Relationship Specialty Start Date End Date Jairo Bartlett DO PCP - General Internal Medicine 09/22/17 documented as of this encounter Additional Source Comments The information contained in this document represents components of the legal health record. It is not the complete legal health record.[facility]
--- OUTSIDE RECORDS SUMMARY | 2025-04-11 10:54 | XMS_ITS | Encounter Summary ---
Author Organization [facility] Address [address] [address] [place] [address] Phone Care Team Providers Care Pest Control Service Representative Name Role Phone Jairo Bartlett Primary Care Provider [phone] Encounter Details Date Type Department Care Team (Latest Contact Info) Description 02/19/2020 Transcribe Orders Virtual Department [address] [place] [address] Susana Beckford PA [address] [place] [address] [place] [address] Right knee pain, unspecified chronicity (Primary Dx) Social History Tobacco Use Types Packs/Day Years Used Date Smoking Tobacco: Former Smokeless Tobacco: Never Alcohol Use Standard Drinks/Week Comments No 0 (1 standard drink = 0.6 oz pur e alcohol) Sex and Gender Information Value Date Recorded Sex Assigned at Not on file Legal Sex Male 9:55 PM EDT Gender Identity Not on file Sexual Orientation Not on file documented as of this encounter Plan of Treatment Not on file documented as of this encounter Results * XR KNEE 4 OR MORE VIEWS (RIGHT) (02/20/2020 1:34 PM EDT) Anatomical Region Laterality Modality Knee Right Computed Radiogr aphy 02/20/2020 1:38 PM EDT Impressions 02/20/2020 1:40 PM EDT Minimal progressive narrowing of the medial compartment without other significant interval change from 2009. POS - [id number] Narrative 02/20/2020 1:40 PM EDT COMPARISON: 07/18/2009 FINDINGS: AP upright, tunnel, lateral, and patellar views reveal no fracture, subluxation, or other acute bony abnormality. There is mild progressive narrowing of the medial compartment. No gross suprapatellar effusion or opaque loose joint body demonstrated. No erosive changes apparent. Procedure Note Osorio Galindo MD - 02/20/2020 COMPARISON: 07/18/2009 FINDINGS: AP upright, tunnel, lateral, and patellar views reveal no fracture,subluxation, or other acute bony abnormality. There is mild progressivenarrowing of the medial compartment. No gross suprapatellar effusion oropaque loose joint body demonstrated. No erosive changes apparent. IMPRESSION: Minimal progressive narrowing of the medial compartment without othersignificant interval change from 2009. POS - [id number] Susana RIVERA IMG XR LOWER EXTREMITY [place] l Result documented in this encounter Visit Diagnoses Diagnosis Right knee pain, unspecified chronicity- Primary Right knee pain, unspecified chronicity documented in this encounter Care Teams Pest Control Service Representative Relationship Specialty Start Date End Date Jairo Bartlett DO [email or web address] PCP - General Internal Medicine 09/22/17 documented as of this encounter Additional Source Comments The information contained in this document represents components of the legal health record. It is not the complete legal health record.[facility]
--- OUTSIDE RECORDS SUMMARY | 2025-04-11 10:54 | XMS_ITS | Encounter Summary ---
Author Organization [facility] Address [address] [place] [address] [place] [address] Phone Care Team Providers Care Mother Baby Rn Name Role Phone Jairo Bartlett DO Primary Care Provider Encounter Details Date Type Department Care Team ([facility] st Contact Info) Description 06/09/2021 Ancillary Orders Virtual Department [address] [place] [address] Jairo Bartlett DO [address] [facility] [place] [address] [place] [address] [email or web address] Encounter for screening for cardiovascular disorders Social History Tobacco Use Types Packs/Day Years [...] documented as of this encounter Results * US Abdominal Aortic Screening (06/09/2021 8:08 AM EST) Anatomical Region Laterality Modality Abdomen Ultrasound 06/09/2021 8:15 AM EST Impressions 06/09/2021 8:17 AM EST No AAA. Narrative 06/09/2021 8:17 AM EST COMPARISON: CT abdomen pelvis 09/23/2017. ABDOMINAL AORTA ULTRASOUND FINDINGS: No evidence of an abdominal aortic aneurysm. Aorta measures up to 2.7 cm proximally. The proximal common iliac arteries are nonaneurysmal. Stable atherosclerosis. Procedure Note Teja Warner MD - 06/09/2021 COMPARISON: CT abdomen pelvis 09/23/2017. ABDOMINAL AORTA ULTRASOUND FINDINGS: No evidence of an abdominal aortic aneurysm. Aorta measures up to 2.7 cmproximally. The proximal common iliac arteries are nonaneurysmal. Stableatherosclerosis. IMPRESSION: No AAA. us Jairo Bartlett DO IMG US ABDOMEN Final Result documented in this encounter Visit Diagnoses Diagnosis Encounter for screening for cardiovascular disorders Encounter for screening for cardiovascular disorders documented in this encounter Care Teams Mother Baby Rn Relationship Specialty Start Date End Date Jairo Bartlett DO [email or web address] PCP - General Internal Medicine 09/22/17 documented as of this encounter Additional Source Comments The information contained in this document represents components of the legal health record. It is not the complete legal health record.[facility]
--- OUTSIDE RECORDS SUMMARY | 2025-04-11 10:54 | XMS_ITS | Encounter Summary ---
Author Organization [facility] Address [address] [place] [address] [place] [address] Phone Care Team Providers Care Intensive Care Unit Nurse Name Role Phone Jairo Bartlett DO Primary Care Provider [phone] Encounter Details Date Type Department Care Team (Late st Contact Info) Description 11/07/2017 Ancillary Orders Virtual Department [address] [place] [address] Shaista Birmingham, GOLF COURSE PATROLLER [address] [place] [address] [email or web address] Acute bronchitis, unspecified organism Social History Tobacco Use Types Packs/Day Years Used Date Smoking Tobacco: Never Assessed Sex and Gender Information Value Date Recorded Sex Assigned at Not on file Legal Sex Male 9:55 PM EDT Gender Identity Not on file Sexual Orientation Not on file documented as of this encounter Plan of Treatment Not on file documented as of this encounter Results * XR CHEST AP AND LATERAL WITH EXPIRATION 3 VIEWS (11/07/2017 2:35 PM EDT) Anatomical Region Laterality Modality Chest Radiographic Mariela ging 11/07/2017 2:48 PM EDT Impressions 11/07/2017 2:50 PM EDT No acute pulmonary process is noted. S/S: Acute bronchitis POS - [id number] Narrative 11/07/2017 2:50 PM EDT COMPARISON: Chest x-ray April 30, 2007 FINDINGS: PA and lateral imaging of the chest is obtained. PA images are obtained in expiration and inspiration. The heart size is normal. The lung abernathy are clear. No pneumothorax or pleural fluid is seen. The aortic contour is unremarkable. There are moderate degenerative changes in the thoracic spine. Procedure Note Steve Banerjee MD - 11/07/2017 COMPARISON: Chest x-ray April 30, 2007 FINDINGS: PA and lateral imaging of the chest is obtained. PA images are obtained inexpiration and inspiration. The heart size is normal. The lung abernathy are clear. No pneumothorax or pleural fluid is seen. The aortic contour is unremarkable. There are moderate degenerative changes in the thoracic spine. IMPRESSION: No acute pulmonary process is noted. S/S: Acute bronchitis POS - [id number] Shaista Birmingham GOLF COURSE PATROLLER IMG XR CHEST Final Resul t documented in this encounter Visit Diagnoses Diagnosis Acute bronchitis, unspecified organism Acute bronchitis, unspecified organism documented in this encounter Care Teams Intensive Care Unit Nurse Relationship Specialty Start Date End Date Jairo Bartlett DO [email or web address] PCP - General Internal Medicine 09/22/17 documented as of this encounter Additional Source Comments The information contained in this document represents components of the legal health record. It is not the complete legal health record.[facility]
--- OUTSIDE RECORDS SUMMARY | 2025-04-11 10:54 | XMS_ITS | Encounter Summary ---
Author Organization [facility] Address [address] [address] Phone Care Team Providers Care Air Sealing Technician Name Role Phone Jairo Bartlett DO Primary Care Provider [phone] Encounter Details Date Type Department Care Team ([facility] st Contact Info) Description 05/27/2021 Transcribe Orders Virtual Department [address] [place] [address] Jairo Bartlett DO [address] [facility] [place] [address] [email or web address] Encounter for screening for cardiovascular disorders (Primary Dx) Social History Tobacco Use Types [...] documented as of this encounter Visit Diagnoses Diagnosis Encounter for screening for cardiovascular disorders- Primary documented in this encounter Care Teams Air Sealing Technician Relationship Specialty Start Date End Date Jairo Bartlett DO [email or web address] PCP - General Internal Medicine 09/22/17 documented as of this encounter Additional Source Comments The information contained in this document represents components of the legal health record. It is not the complete legal health record.[facility]"
--- OUTSIDE RECORDS SUMMARY | 2025-04-11 10:54 | XMS_ITS | Encounter Summary ---
Author Organization [facility] Address [address] [facility] [address] [place] [address] Phone Care Team Providers Care Chief Executive Or Managing Director Name Role Phone Jairo Bartlett DO Primary Care Provider [phone] Encounter Details Date Type Department Care Team ([facility] st Contact Info) Description 08/09/2018 Procedure Pass [facility] Endoscopy Admitting Dept Virtual Department [address] [place] [address] Social History Tobacco Use Types Packs/Day Years [...] on filedocumented in this encounter Care Teams Chief Executive Or Managing Director Relationship Specialty Start Date End Date Jairo Bartlett DO PCP - General Internal Medicine 09/22/17 documented as of this encounter Additional Source Comments The information contained in this document represents components of the legal health record. It is not the complete legal health record.[facility]
--- OUTSIDE RECORDS SUMMARY | 2025-04-11 10:54 | XMS_ITS | Encounter Summary ---
Author Organization [facility] Address [address] [place] [address] Phone Care Team Providers Care Market Consultant Name Role Phone Jairo Bartlett DO Primary Care Provider Encounter Details Date Type Department Care Team ([facility] st Contact Info) Description 05/11/2022 Transcribe Orders Virtual Department [address] [place] [address] Jairo Bartlett DO [address] [facility] [place] [address] Right knee pain, unspecified chronicity (Primary Dx) [...] as of this encounter Visit Diagnoses Diagnosis Right knee pain, unspecified chronicity- Primary documented in this encounter Care Teams Market Consultant Relationship Specialty Start Date End Date Jairo Bartlett DO PCP - General Internal Medicine 09/22/17 documented as of this encounter Additional Source Comments The information contained in this document represents components of the legal health record. It is not the complete legal health record.[facility]
--- OUTSIDE RECORDS SUMMARY | 2025-04-11 10:54 | XMS_ITS | Clinical Summary ---
Author Organization [facility] Address [address] [place] [address] [place] [address] Phone Care Team Providers Care Automation Control Technician Name Role Phone Saturnino Nichole Primary Care Provider [phone] Allergies Active Allergy Reactions Criticality Noted Date Comments Metronidazole Dizziness Low 07/25/2018 Medications propranolol (INDERAL LA) 120 mg 24 hr capsule Take 120 mg by mouth daily. Active buPROPion (WELLBUTRIN SR) 150 MG SR 12 hr tablet Take 150 mg by mouth daily. Active omeprazole (PRILOSEC) 20 MG capsuleIndicati ons:gastroesoph ageal reflux disease Take 20 mg by mouth daily. Active simvastatin (ZOCOR) 40 MG tabletIndicatio ns:hypercholest erolemia Take 40 mg by mouth nightly. Active tiZANidine (ZANAFLEX) 4 MG capsule Take 4 mg by mouth 2 (two) times a day. Active cholecalciferol (VITAMIN D3) 2,000 unit tablet Take 1,000 Units by mouth daily. Active ibuprofen (ADVIL,MOTRIN) 800 MG tablet Take 1 tablet (800 mg total) by mouth every 8 (eight) hours as needed for pain (specific location in comments). 21 tablet 03/03/2024 Active Active Problems Problem Noted Date Diagnosed Date Class 1 obesity 03/03/2024 History of tobacco abuse 03/03/2024 Anxiety 03/02/2023 Obstructive sleep apnea syndrome 01/19/2021 Osteoarthritis of right knee 09/12/2020 Depressive disorder 08/26/2020 Atrial fibrillation 07/14/2020 History of diverticulitis 02/14/2018 Hyperlipidemia 09/21/2017 Essential hypertension 09/21/2017 Immunizations Immunization Administration Dates Next Due Tdap 03/03/2024 Social History Tobacco Use Types Packs/Day Years Used Date Smoking Tobacco: Former Smokeless Tobacco: Never Alcohol Use Standard Drinks/Week Comments No 0 (1 standard drink = 0.6 oz pur e alcohol) Education Answer Date Recorded Are you interested in more education? Not on alvarez e 10/15/2022 Are you concerned about learning? Not on file 10/15/2022 No 10/15/2022 No 10/15/2022 Digital Access Answer Date Recorded No 11/13/2022 No 11/13/2022 No 11/13/2022 Reliable internet access at home? Not on file 11/13/2022 Device with a working camera? Not on file Sex and Gender Information Value Date Recorded Sex Assigned at Not on file Legal Sex Male 9:55 PM EDT Gender Identity Not on file Sexual Orientation Not on file Last Filed Vital Signs Vital Sign Reading Time Taken Comments Blood Pressure 170/75 03/03/2024 12:59 PM EDT Pulse 56 03/03/2024 12:59 PM EDT Temperature 37.2 C (98.9 F) 03/03/2024 12:59 PM EDT Respiratory Rate 17 03/03/2024 12:59 PM EDT Oxygen Saturation 97% 03/03/2024 12:59 PM EDT Inhaled Oxygen Concentration - - Weight 104.3 kg (230 lb) 03/03/2024 12:59 PM EDT Height 175.3 cm (5' 9 ) 03/03/2024 12:59 PM EDT Body Mass Index 33.97 03/03/2024 12:59 PM EDT Plan of Treatment Health Maintenance Due Date Last Done Comments LIPID PANEL 1955 DEPRESSION SCREENING 1967 SMOKING Hx and SMOKELESS TOBACCO SCREENING 01/12/1968 HEPATITIS C SCREENING 1973 COLOGUARD 01/12/2000 FIT TEST 01/12/2000 FOBT 01/12/2000 SIGMOIDOSCOPY 01/12/2000 VIRTUAL COLONOSCOPY 01/12/2000 ZOSTER VACCINES (2 of 3) 08/27/2015 07/02/2015 PNEUMOCOCCAL VACCINES (50+ years) (2 of 2 - PPSV23) 01/25/2016 01/24/2015 BLOOD PRESSURE 08/31/2024 03/03/2024 INFLUENZA VACCINE (#1) 2025 , 02/05/2020, 02/27/2019, Additional history exists COVID-19 VACCINE ( season) 2025 04/12/2021, 10/11/2020, 09/19/2020 COLONOSCOPY 08/09/2028 08/09/2018 COLORECTAL CANCER SCREENING 08/09/2028 RSV VACCINE (1 - 1-dose 75+ series) 2030 Adult Td,Tdap Booster 03/03/2034 03/03/2024, 021 ABDOMINAL AORTIC ANEURYSM (AAA) SCREENING Completed 06/09/2021, 09/23/2017 HEPATITIS A VACCINES Aged Out No long er eligible based on patient's age to complete this topic HIB VACCINES Aged Out No longer eligi ble based on patient's age to complete this topic MENINGOCOCCAL VACCINES (ACWY) Aged Out No longer eligible based on patient's age to complete this topic MENINGOCOCCAL VACCINES (B) Aged Out N o longer eligible based on patient's age to complete this topic Medical Devices Implanted Type Area [employer] Sales Consultant Device Identifier Shelf Expiration Date Model / Serial / Lot Screw In Rt Ankle Procedures Procedure Name Priority Date/Time Associated Diagnosis Comments US ABDOMINAL AORTIC SCREENING Routine 06/09/2021 8:08 AM EST Encounter for screening for cardiovascular disorders ENDOSCOPY, COLON 08/09/2018 8:03 AM EST from Last 3 Months or Most Recently Relevant to Health Maintenance Results * US Abdominal Aortic Screening (06/09/2021 [...] are nonaneurysmal. Stableatherosclerosis. IMPRESSION: No AAA. us Saturnino Nichole DO IMG US ABDOMEN Final Result * ENDOSCOPY, COLON (08/09/2018 8:03 AM EST) Narrative Transcriptions Eran Elmore MD - 08/09/2018 8:03 AM EST Patient Name: Gene Ethier Attending MD:: ERAN ELMORE MD Procedure Date: 08/09/2018 8:03 AM Date of : 1955 Age: 63 Admit Type: Outpatient Gender: Male Room: [place] [address] Referring MD: SATURNINO NICHOLE DO Exam Type: Colonoscopy Indications: Screening for colorectal malignant neoplasm Medications: Monitored Anesthesia Care Procedure: Informed consent was obtained from the patient after discussion of the indications, limitations,alternatives, benefits, and risks of the procedure. Risksspecifically discussed include but are not limited to medication reactions, missed lesions, bleeding, perforation, orthe need for emergent surgery. Throughout the procedure, the patient's blood pressure, pulse, end-tidal CO2, and oxygen saturations were monitored continuously. The Olympus adult variable colonoscope [id number] #[id number] was introduced through the anus and advanced to the cecum, identified by the appendiceal orifice, ileocecal valveand palpation. The colonoscopy was performed without difficulty. The patient tolerated the procedure well.The quality of the bowel preparation was good. Complications: No immediate complications. Estimated blood loss:Minimal. Findings: The perianal and digital rectal examinations werenormal. Pertinent negatives include normal sphincter tone. Two flat polyps were found in the ileocecal valve. The polyps were 4 to 6 mm in size. These polyps wereremoved with a cold snare. Resection and retrieval werecomplete. Estimated blood loss: none. A 7 mm polyp was found at 80 cm proximal to the anus.The polyp was sessile. The polyp was removed with a cold snare. Resection and retrieval were complete. A 6 mm polyp was found at 20 cm proximal to the anus.The polyp was sessile. The polyp was removed with a cold snare. Resection and retrieval were complete. Estimated blood loss: none. Two semi-pedunculated polyps were found in the rectum.The polyps were 6 to 11 mm in size. These polyps wereremoved with a hot snare. Resection and retrieval werecomplete. Estimated blood loss: none. Scattered small and large-mouthed diverticula werefound in the descending colon, splenic flexure, transverse colon, hepatic flexure and ascending colon. There was evidence of a prior end-to-end colo-colonic anastomosis in the sigmoid colon. This was patent andwas characterized by healthy appearing mucosa. The exam was otherwise without abnormality on directand retroflexion views. Non-bleeding internal hemorrhoids were found during retroflexion. The hemorrhoids were moderate. Impression: - Two 4 to 6 mm polyps at the ileocecal valve, removed with a cold snare. Resected and retrieved. - One 7 mm polyp at 80 cm proximal to the anus, removed with a cold snare. Resected and retrieved. - One 6 mm polyp at 20 cm proximal to the anus, removed with a cold snare. Resected and retrieved. - Two 6 to 11 mm polyps (adenomatous) in the rectum, removed with a hot snare. Resected and retrieved. - Diverticulosis in the descending colon, at thesplenic flexure, in the transverse colon, at the hepaticflexure and in the ascending colon. - Patent end-to-end colo-colonic anastomosis, characterized by healthy appearing mucosa. - The examination was otherwise normal on direct and retroflexion views. Recommendation: - I will send results of your biopsy to you and your referring physician or provider. If you do not receive notification within 3 weeks, please call our office. - Repeat colonoscopy in 3 years for surveillance of multiple polyps. ERAN ELMORE MD 08/09/2018 8:34:56 AM This report has been signed electronically. Number of Addenda: 0 Note Initiated On: 08/09/2018 8:03 AM Procedure Code(s): --- Professional --- 82264, Colonoscopy, flexible; with removal of tumor(s), polyp(s), or other lesion(s) by snare technique --- Technical --- 51835, Colonoscopy, flexible; with removal of tumor(s), polyp(s), or other lesion(s) by snare technique Diagnosis Code(s): --- Professional --- Z12.11, Encounter for screening for malignant neoplasm of colon D12.0, Benign neoplasm of cecum D12.8, Benign neoplasm of rectum Z98.0, Intestinal bypass and anastomosis status K57.30, Diverticulosis of large intestine without perforation orabscess without bleeding --- Technical --- Z12.11, Encounter for screening for malignant neoplasm of colon D12.0, Benign neoplasm of cecum D12.8, Benign neoplasm of rectum Z98.0, Intestinal bypass and anastomosis status K57.30, Diverticulosis of large intestine without perforation orabscess without bleeding CPT copyright 2016 [employer]. All rights reserved. The codes documented in this report are preliminary and upon medical record coder reviewmay be revised to meet current compliance requirements. [address] [place] [address] us Saturnino A Bigda DO GI PROCEDURE ORDERABLES Final Re sult from Last 3 Months or Most Recently Relevant to Health Maintenance Insurance MEDICARE HMO BLUE REPLACEMENT MEDICARE HMO BLUE REPLACEMENT MEDICARE HMO BLUE REPLACEMENT MEDICARE HMO BLUE [place] [address] [place] [address] MEDICARE HMO BLUE REPLACEMENT MEDICARE HMO BLUE [place]AC[place] [place] [address] MEDICARE HMO BLUE REPLACEMENT [place] MEDICARE HMO BLUE REPLACEMENT MEDICARE HMO BLUE REPLACEMENT Care Teams Automation Control Technician Relationship Specialty Start Date End Date Saturnino Nichole DO [email or web address] PCP - General Internal Medicine 09/22/17 Additional Source Comments The information contained in this document represents components of the legal health record. It is not the complete legal health record.[facility]
== END 2025-04-11 10:03 | disposition home or self-care (01) ==
PROVIDERS: PCP Internal Medicine; Visit Provider Internal Medicine
DX: E66.9 Obesity, unspecified (principal); E66.2 Morbid (severe) obesity with alveolar hypoventilation; G47.33 Obstructive sleep apnea (adult) (pediatric)
CPT/HCPCS: 99213

== ENCOUNTER → 2025-04-11 09:34 | Outpatient (BNVA) | payer MEDICARE, MEDICAID, SELFPAY | PROVIDERS: PCP Internal Medicine; Visit Provider Internal Medicine | DX: G47.33 Obstructive sleep apnea (adult) (pediatric) (principal); Z99.89 Dependence on other enabling machines and devices; E66.9 Obesity, unspecified | CPT/HCPCS: 99212 ==

== ENCOUNTER → 2025-06-10 07:40 | Outpatient (REF) | payer MEDICARE, MEDICAID, SELFPAY ==
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
--- OUTSIDE RECORDS SUMMARY | 2025-06-10 07:42 | XMS_ITS | Encounter Summary ---
Author Organization [facility] Address [address] [place] [phone] Phone Care Team Providers Care Paraeducator Name Role Phone aJiro Bartlett DO Primary Care Provider [phone] Encounter Details Date Type Department Care Team ([facility] st Contact Info) Description 08/09/2018 Procedure Pass [facility]oscopy Admitting Dept Virtual Department [address] [place] [address] Social History Tobacco Use Types Packs/Day Years [...] on filedocumented in this encounter Care Teams Paraeducator Relationship Specialty Start Date End Date Jairo Bartlett DO PCP - General Internal Medicine 09/22/17 documented as of this encounter Additional Source Comments The information contained in this document represents components of the legal health record. It is not the complete legal health record.[facility]
--- OUTSIDE RECORDS SUMMARY | 2025-06-10 07:42 | XMS_ITS ---
Author Name Eve Velazquez Address Unknown Organization [facility] Care Team Providers Care Optical Instruments Supervisor Name Role Phone Unavailable Primary Care Physician Unavailab le History Of Present Illness This is a 70 year old male who is an established patient who is being seen for an evaluation of skin lesions.Location: body throughoutSeverity: mildPertinent History: no previous skin cancerAdditional Visit Reasons: evaluation for suspicious growthsPatient reports nothing of concern at this time. Allergies, Adverse Reactions, Alerts Substance RxNorm Reaction(s) Severity Status Start Da te Flagyl unspecified active Medications Medication Generic Name RxNorm Strength Strength Unit Route Dose Dose Form Frequency Date Started Date Ended Status Indication Sig amlodipine amlodipi ne 5 mg Oral table t active Eliquis apixaban 5 mg Oral table t active omeprazole omeprazo le 10 mg Oral capsu le,de layed relea se(DR /EC) active propranolol proprano lol 120 mg Oral capsu le,ex tende d relea se 24 hr active simvastatin simvasta tin 40 mg Oral table t active tizanidine tizanidi ne 6 mg Oral capsu le active Wellbutrin SR bupropio n HCl 200 mg Oral table t susta ined- relea se 12 hr active Problems Problem Code Type Status Date of Diagnosis Da te of Resolution Patient encounter status (finding) 106293237(SN OMED) Diagnosis active 06/06/2024 Hemangioma of skin and subcutaneous tissue (disorder) 229263743(SN OMED) Diagnosis active 02/16/2022 Hemangioma of skin and subcutaneous tissue (disorder) 504236027(SN OMED) Diagnosis active 06/06/2023 Asteatosis cutis (disorder) 75314410(SNO MED) Diagnosis active 06/06/2023 Papulosquamous dermatosis (disorder) 78488133(SNO MED) Diagnosis active 02/16/2022 Papulosquamous dermatosis (disorder) 98452957(SNO MED) Diagnosis active 12/15/2020 Melanocytic nevus of left upper limb (disorder) 310429928647 103(SNOMED) Diagnosis active 12/15/2020 Benign neoplasm of skin of ear (disorder) 37695004(SNO MED) Diagnosis active 02/16/2022 Anxiety disorder (disorder) 445539441(SN OMED) Problem active Actinic keratosis (disorder) 246257453(SN OMED) Diagnosis active 06/06/2024 Hemangioma of skin and subcutaneous tissue (disorder) 130296554(SN OMED) Diagnosis active 12/15/2020 Patient encounter status (finding) 309018176(SN OMED) Diagnosis active 06/06/2023 Melanocytic nevus of trunk (disorder) 052862628(SN OMED) Diagnosis active 12/15/2020 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) 826790176(SN OMED) Problem active History of clinical finding in subject (situation) 072189684(SN OMED) Problem active Arthritis (disorder) 0488127(SNOM ED) Problem active Melanocytic nevus of trunk (disorder) 729480916(SN OMED) Diagnosis active 06/06/2023 Seborrheic keratosis (disorder) 942860364(SN OMED) Diagnosis active 12/15/2020 Hemangioma of skin and subcutaneous tissue (disorder) 026850829(SN OMED) Diagnosis active 06/06/2024 Melanocytic nevus of trunk (disorder) 648206247(SN OMED) Diagnosis active 02/16/2022 Benign neoplasm of skin of trunk (disorder) 26546036(SNO MED) Diagnosis active 06/06/2023 Patient encounter status (finding) 319137678(SN OMED) Diagnosis active 02/16/2022 Seborrheic keratosis (disorder) 091441668(SN OMED) Diagnosis active 06/06/2023 Eczema (disorder) 15451648(SNO MED) Problem active History of hypertension (situation) 814775567(SN OMED) Problem active Patient encounter status (finding) 682364652(SN OMED) Diagnosis active 12/15/2020 Melanocytic nevus of trunk (disorder) 777719853(SN OMED) Diagnosis active 06/06/2024 Seborrheic keratosis (disorder) 368497435(SN OMED) Diagnosis active 02/16/2022 Seborrheic keratosis (disorder) 290985871(SN OMED) Diagnosis active 06/06/2024 Seborrheic keratosis (disorder) 300299647(SN OMED) Diagnosis active 06/06/2025 Hemangioma of skin and subcutaneous tissue (disorder) 125922661(SN OMED) Diagnosis active 06/06/2025 Actinic keratosis (disorder) 574643687(SN OMED) Diagnosis active 06/06/2025 Patient encounter status (finding) 783454222(SN OMED) Diagnosis active 06/06/2025 Melanocytic nevus of trunk (disorder) 359831878(SN OMED) Diagnosis active 06/06/2025 Melanocytic nevus of left lower limb (disorder) 094403507325 106(SNOMED) Diagnosis active 06/06/2025 Melanocytic nevus of right lower limb (disorder) 245352634503 108(SNOMED) Diagnosis active 06/06/2025 Non-thrombocytopenic purpura (disorder) 409916676(SN OMED) Diagnosis active 06/06/2025 Disorder of pigmentation (disorder) 828167512(SN OMED) Diagnosis active 06/06/2025 Results No data Encounters Service provided at [facility] [address] [place] [phone]. Office fax number is [phone]. Encounter Diagnosis Location Date / Time Type Disc harge Status Seborrheic Keratoses (L82.1)Downing Angiomas (D18.01)Actinic Keratoses (L57.0)Hemangioma (D18.01)Skin Education (Z71.89)Seborrheic Keratoses (L82.1)Benign Nevi (D22.5,D22.72,D22.71)Pu rpura (D69.2)Hemosiderin Deposition (L81.8)MIPS () [facility] 06/06/2025 13:13:00 [facility] [id number] Reason For Referral No data Procedures Procedure Date Destruction of premalignant skin lesion (procedure) 06/06/2025 12:00 am [place] Destruction of premalignant skin lesion (procedure) 06/06/2024 12:00 am [facility] Cryotherapy of skin lesion with liquid n itrogen (procedure) 12/15/2020 12:00 am [facility] Review Of Systems Provider reviewed on Jun 06, 2025.A focused review of systems was performed including Allergic / Immunologic, Cardiovascular, Constitutional / Symptom, Gastrointestinal (G.I.), Hematologic / Lymphatic, Integumentary, Musculoskeletal, Neurological, Other, and Respiratory and was negative. Assessment 1.Seborrheic KeratosesCounseling2.Downing AngiomasCounseling3.Actinic KeratosesCounselingLiquid Nitrogen: 3rd web space left hand; left radial dorsal hand; left radial dorsal hand; left distal dorsal forearm; left proximal radial dorsal forearm; 4th web space right hand; right proximal dorsal forearm; right distal radial dorsal forearm.Educational Resources Provided4.HemangiomaCounseling5.Skin EducationCounseling6.Seborrheic KeratosesReassurancePointed Out by Patient7.Benign NeviCounseling8.Purpu raCounselingPointed Out by Patient9.Hemosiderin Deposition - Patient reports this occurred after a golf ball hit against his hand.CounselingPointed Out by [email or web address].[facility] Quality Plan of Care Future visit for 06/06/2026 - Follow up in 1 year for: Skin Check - 15 minutes Instructions * I counseled the patient regarding the following:Skin Care: Seborrheic Keratoses are benign. No treatment is necessary.Expectations: Seborrheic Keratoses are benign warty growths. Patients get more ofthem as they age. * I counseled the patient regarding the following:Skin Care: Downing Angiomas can resolve with lasers or electrodesiccation.Expectations: Downing Angiomas are benign vascular growths. No treatment is necessary. * I counseled the patient regarding the following:Skin Care: Sun protective clothing and broad spectrum sunscreen can prevent the formation of Actinic Keratoses. AKs can resolve with cryotherapy, photodynamic therapy, imiquimod, topical 5-FU.Expectations: Actinic Keratoses are precancerous proliferations that occur within sun damaged skin. If untreated, a small subset of AKs can develop into Squamous Cell Carcinoma.Contact Office if: If AKs fail to resolve despite treatment, or if you develop a side effect from therapy, such as unbearable crusting, scabbing, redness and tenderness. * I counseled the patient regarding the following:Expectations: Hemangiomas are benign growths. No treatment is necessary. * I counseled the patient regarding the following:Sun screen (SPF 30 or greater) should be applied during peak UV exposure (between 10am and 2pm) and reapplied after exercise or swimming.I recommended the following: Broad Spectrum Sunscreen SPF 30+ * I counseled the patient regarding the following:Instructions: Monthly self- skin checks to monitor for any changes in moles are recommended.Expectations: Benign Nevi are pigmented nests of cells within the skin. No treatment is necessary.Contact Office if: Any moles change in size, shape or color; itch, burn or bleed. * I counseled the patient regarding the following:Skin care: Purpura usually resolves within 3-4 weeks. No treatment is necessary.Expectations: Purpura are bruises that form within the skin. Patients may have skin fragility from sun damage, be on blood thinners or prednisone, or recently had surgery.Contact office if: Purpura worsens with no cause that can be identified; or if patient develops bleeding problems.I recommended the following: Arnica * I counseled the patient regarding the following:Instructions: Hemosiderin will slowly resolve over time. Treating the underlying cause will ensure no further hemosiderin enters the skin.Expectations:Hemosiderin deposition occurs secondary to the degradation of hemoglobin within the dermis. This can occur secondary to trauma, stasis dermatitis, purpura, hemochromatosis and hemorrhagic diseases.Contact office if: Your condition worsens.. Social History Code Activity Start Date End Date [id number] (SkyhoodOMED) Former smoker Sex Male Vital Signs No data Insurances Coverage Status Coverage Type Relationship to Subscriber Member Identifier Subscriber Identifier Group Identifier Payer Identifier Inactive Self Inactive Self [id number] Active GP Self [id number]
--- OUTSIDE RECORDS SUMMARY | 2025-06-10 07:42 | XMS_ITS | Encounter Summary ---
Author Organization [facility] Address [address] [place] [phone] Phone Care Team Providers Care Casino Porter Name Role Phone Jairo Bartlett Primary Care Provider [phone] Encounter Details Date Type Department Care Team (Latest Contact Info) Description 02/19/2020 Transcribe Orders Virtual Department [address] [place] [address] Susana Beckford PA [address] [place] [address] [place] [address] Right knee pain, unspecified chronicity (Primary Dx) [...] chronicity documented in this encounter Care Teams Casino Porter Relationship Specialty Start Date End Date Jairo Bartlett DO [email or web address] PCP - General Internal Medicine 09/22/17 documented as of this encounter Additional Source Comments The information contained in this document represents components of the legal health record. It is not the complete legal health record.[facility]
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
--- NOTE | 2025-06-10 07:43 | CA_ITS ---
Transthoracic Echocardiogram Patient (Last, First, Middle): Gene Luis P Gender: M Date of : 1955 Age: 70 Procedure Date: 06/10/2025 Procedure Type: Transthoracic Echocardiogram Location: OP Height: 175.26 cm Weight: 105.24 kg BSA: 2.20 m2 Heart Rate: bpm BP: 131 / 68 mmHg Supervisor Electronics Testing: [employer] Referring MD: Eric Perkins MD Coin Machine Collector Supervisor: Eric Perkins MD Symptoms: I77.89 - Other specified disorders of arteries and arterioles Study Quality: Fair ECG Rhythm: Sinus Conclusions: - 1. Normal LV ejection fraction of 60 65% with impaired relaxation filling pattern 2. Mild calcific aortic and mitral valve changes noted with normal cardiac valvular Dopplers 3. Mildly dilated ascending aorta at 4 cm 4. Normal RV systolic pressure 5. No pericardial effusion Findings Left Ventricle Normal left ventricular size, thickness, and systolic function. The visually estimated ejection fraction is between 60-65%. Spectral Doppler is indicative of an impaired relaxation filling pattern. E/E prime ratio is between 8 and 15 consistent with indeterminate filling pressures. There is mild septal asymmetric hypertrophy. Right Ventricle Normal right ventricular cavity size and systolic function. Atria The left atrium is normal in size. There is lipomatous hypertrophy of the interatrial septum. There is no evidence of interatrial shunt. The right atrium was not well visualized. Aortic Valve The aortic valve was not well visualized. There is mild calcification of the aortic valve. There is no aortic valve stenosis. There is no aortic valve regurgitation. Mitral Valve The mitral valve was not well visualized. There is mild anterior and posterior mitral leaflet thickening. There is mild mitral annular calcification. There is trace mitral valve regurgitation. There is no mitral valve stenosis. Pulmonic Valve The pulmonic valve was not well visualized. Tricuspid Valve Likely normal tricuspid valve structure and function. There is trace tricuspid valve regurgitation. The right ventricular systolic pressure is normal. The right ventricular systolic pressure is 26 mmHg. Normal right atrial pressure. There is no evidence of pulmonary hypertension. Great Vessels The pulmonary artery was not well visualized. There is mild dilatation of the ascending aorta measuring 4.00 cm. Small plaque is seen in the sino tubular ridge. Venous The inferior vena cava is normal in size and collapses greater than 50% with inspiration. Pericardium/Pleural There is no evidence of pericardial effusion. Prior Study Comparison No significant change compared to prior study dated: 04/23/2024. Measurements 2D Linear Measurements IVSd: 1.19 0.6-0.9/0.6-1.0 cm LVIDd: 5.87 3.9-5.3/4.2-5.9 cm LVIDd Index: 2.67 2.4-3.2/2.2-3.1 cm/m2 LVIDs: 3.62 2.0-3.6 cm LVPWd: 1.16 0.7-1.1 cm LA Diam: 4.30 2.7-3.8/3.0-4.0 cm LAIDs Index: 1.95 1.5-2.3 cm/m2 LV Mass: 367.28 67-162/88-224 g LV Mass Index: 166.94 43-95/49-115 g/m2 LVOT Diam: 2.00 3.0+(-)1.3 cm 2D Systolic Function EF 4C: 66.20 >55% EF 2C: 61.00 >55% EF BiP: 63.50 >55% Mitral Valve MV Pk E: 0.72 MV PK A: 1.11 MV Decel Time: 303.00 E/A: 0.70 E'Lateral: 5.70 E'Medial: 4.05 E/E' Med: 17.80 E/E' Lat: 12.70 PHT: 89.00 MVA PHT: 2.47 Decel [place]: 2.38 Aortic Valve AoV Pk El: 1.77 AoV Mn El: 1.21 AoV VTI: 0.42 AoV Pk Grad: 13.00 Aov Mn Grad: 7.00 MEKA Cont.VTI: 2.57 LVOT LVOT Pk El: 1.45 LVOT Mn El: 0.88 LVOT VTI: 0.34 LVOT Pk Grad: 8.00 LVOT Mn Grad: 4.00 LVOT Diam: 2.00 LVOT Area: 3.14 Diastolic Function MV Pk E: 0.72 MV Pk A: 1.11 E/A: 0.70 E'Medial: 4.05 E/E' Med: 17.80 E' Laterial: 5.70 E/E' Lat: 12.70 Right Ventricle TAPSE (mm): 28.50 TVS' El: 18.50 Tricuspid Valve TR Pk El: 2.39 TR Pk Grad: 23.00 RA Press: 3.00 RVSP: 26.00 Great Vessels Aorta Sinus of Valsalva: 3.68 2.0-3.[address] Ridge: 2.90 1.7-3.4 cm Ao Asc: 4.00 2.1-3.4 cm Pulmonary Veins Pulm Vein S/D 1.40 Updated in Other Vendor System with Status of Final Eric Perkins MD electronically signed on 06/10/2025 3:18:11 PM with status of Final
--- OUTSIDE RECORDS SUMMARY | 2025-06-10 07:43 | XMS_ITS | Encounter Summary ---
Author Organization [facility] Address [address] [place] [address] [place] [address] Phone Care Team Providers Care Bread Icer Name Role Phone Jairo Bartlett DO Primary Care Provider [phone] Encounter Details Date Type Department Care Team (Late st Contact Info) Description 11/07/2017 Ancillary Orders Virtual Department [address] [place] [address] Shaista Birmingham, HOGSHEAD PRESS OPERATOR [address] [place] [address] [email or web address] Acute bronchitis, unspecified organism Social History Tobacco [...] Acute bronchitis POS - [id number] Shaista Birmingham HOGSHEAD PRESS OPERATOR IMG XR CHEST Final Resul t documented in this encounter Visit Diagnoses Diagnosis Acute bronchitis, unspecified organism Acute bronchitis, unspecified organism documented in this encounter Care Teams Bread Icer Relationship Specialty Start Date End Date Jairo Bartlett DO [email or web address] PCP - General Internal Medicine 09/22/17 documented as of this encounter Additional Source Comments The information contained in this document represents components of the legal health record. It is not the complete legal health record.[facility]
--- OUTSIDE RECORDS SUMMARY | 2025-06-10 07:43 | XMS_ITS | Encounter Summary ---
Author Organization [facility] Address [address] [facility] [address] [place] [address] Phone Care Team Providers Care Center Machine Operator Name Role Phone Jairo Bartlett DO Primary Care Provider [phone] Encounter Details Date Type Department Care Team (Late st Contact Info) Description 09/22/2017 Procedure Pass [facility], Ct Scan - [address] [address] Social History Tobacco Use Types Packs/Day Years [...] on filedocumented in this encounter Care Teams Center Machine Operator Relationship Specialty Start Date End Date Jairo Bartlett DO PCP - General Internal Medicine 09/22/17 documented as of this encounter Additional Source Comments The information contained in this document represents components of the legal health record. It is not the complete legal health record.[facility]
--- OUTSIDE RECORDS SUMMARY | 2025-06-10 07:43 | XMS_ITS | Encounter Summary ---
Author Organization [facility] Address [address] [address] Phone Care Team Providers Care Pipe Fitter Marine Name Role Phone Jairo Bartlett DO Primary Care Provider [phone] Encounter Details Date Type Department Care Team ([facility] st Contact Info) Description 05/27/2021 Transcribe Orders Virtual Department [address] [place] [address] Jairo Bartlett DO [address] [facility] [place] [address] [email or web address] Encounter for screening for cardiovascular disorders (Primary [...] Primary documented in this encounter Care Teams Pipe Fitter Marine Relationship Specialty Start Date End Date Jairo Bartlett DO [email or web address] PCP - General Internal Medicine 09/22/17 documented as of this encounter Additional Source Comments The information contained in this document represents components of the legal health record. It is not the complete legal health record.[facility]
--- OUTSIDE RECORDS SUMMARY | 2025-06-10 07:43 | XMS_ITS | Encounter Summary ---
Author Organization [facility] Address [address] [place] [address] Phone Care Team Providers Care Store Hand Name Role Phone Jairo Bartlett DO Primary Care Provider [phone] Encounter Details Date Type Department Care Team ([facility] st Contact Info) Description 05/11/2022 Transcribe Orders Virtual Department [address] [place] [address] Jairo Bartlett DO [address] [facility] [place] [address] Right knee pain, unspecified chronicity (Primary Dx) [...] Primary documented in this encounter Care Teams Store Hand Relationship Specialty Start Date End Date Jairo Bartlett DO PCP - General Internal Medicine 09/22/17 documented as of this encounter Additional Source Comments The information contained in this document represents components of the legal health record. It is not the complete legal health record.[facility]
--- OUTSIDE RECORDS SUMMARY | 2025-06-10 07:43 | XMS_ITS | Encounter Summary ---
Author Organization [facility] Address [address] [place] [address] [place] [address] Phone Care Team Providers Care Stitchdown Thread Laster Name Role Phone Jairo Bartlett Primary Care Provider [phone] Encounter Details Date Type Department Care Team (Late st Contact Info) Description 09/22/2017 Ancillary Orders Virtual Department [address] [place] [address] Shaista Birmingham, VALVE MECHANIC [address] [place] [address] Left upper quadrant pain Social History Tobacco [...] acute compression fractures seen. Procedure Note Steve Banerjee MD - 09/23/2017 COMPARISON: CT abdomen pelvis [...] diverticulosis, diverticulitis POS - [id number] Shaista Birmingham VALVE MECHANIC IMG CT ABD/PELVIS Final Res ult documented in this encounter Visit Diagnoses Diagnosis Left upper quadrant pain Abdominal pain, left upper quadrant Left upper quadrant pain Abdominal pain, left upper quadrant documented in this encounter Care Teams Stitchdown Thread Laster Relationship Specialty Start Date End Date Jairo Bartlett DO [email or web address] PCP - General Internal Medicine 09/22/17 documented as of this encounter Additional Source Comments The information contained in this document represents components of the legal health record. It is not the complete legal health record.[facility]
--- OUTSIDE RECORDS SUMMARY | 2025-06-10 07:43 | XMS_ITS | Clinical Summary ---
Author Organization [facility] Address [address] [place] [address] [place] [address] Phone Care Team Providers Care Pin Inserter Regulator Name Role Phone Saturnino Nichole Primary Care Provider [phone] Allergies Active Allergy Reactions Criticality Noted Date [...] VACCINES (50+ years) (2 of 2 - PCV20 or PCV21) 01/25/2016 01/24/2015 BLOOD PRESSURE 08/31/2024 03/03/2024 INFLUENZA [...] this topic Medical Devices Implanted Type Area Principal Solutions Architect Device Identifier Shelf Expiration Date Model / [...] 63 Admit Type: Outpatient Gender: Male Room: [place] [address] Referring MD: SATURNINO NICHOLE DO Exam Type: [...] monitored continuously. The Olympus adult variable colonoscope [id number] #5 was introduced through the anus and [...] 8:03 AM Procedure Code(s): --- Professional --- 45611, Colonoscopy, flexible; with removal of tumor(s), polyp(s), or other lesion(s) by snare technique --- Technical --- 44148, Colonoscopy, flexible; with removal of tumor(s), polyp(s), [...] perforation orabscess without bleeding CPT copyright 2016 [employer]. All rights reserved. The codes documented in this report are preliminary and upon bank courier reviewmay be revised to meet current compliance requirements. [address] [place] [address] us Saturnino A Bigda DO GI PROCEDURE ORDERABLES Final Re sult from Last 3 Months or Most Recently Relevant to Health Maintenance Insurance MEDICARE HMO BLUE REPLACEMENT MEDICARE HMO BLUE REPLACEMENT MEDICARE HMO BLUE REPLACEMENT MEDICARE HMO BLUE [place] [address] [place] [address] MEDICARE HMO BLUE [place]PLAC[place] [address] [place] [address] MEDICARE HMO BLUE [place]PLAC[place] [place] [address] MEDICARE HMO BL[place] REPLAC[place] MEDICARE H[place] BLUE REPLACEMENT MEDICARE HMO BLUE REPLACEMENT Care Teams Pin Inserter Regulator Relationship Specialty Start Date End Date Saturnino Nichole DO [email or web address] PCP - General Internal Medicine 09/22/17 Additional Source Comments The information contained in this document represents components of the legal health record. It is not the complete legal health record.[facility]
--- OUTSIDE RECORDS SUMMARY | 2025-06-10 07:43 | XMS_ITS | Encounter Summary ---
Author Organization [facility] Address [address] [place] [address] [place] [address] Phone Care Team Providers Care Relay Motorman Name Role Phone Jairo Bartlett DO Primary Care Provider [phone] Encounter Details Date Type Department Care Team ([facility] st Contact Info) Description 06/09/2021 Ancillary Orders Virtual Department [address] [place] [address] Jairo Bartlett DO [address] [facility] [place] [address] [place] [address] [email or web address] Encounter for screening for cardiovascular disorders Social [...] disorders documented in this encounter Care Teams Relay Motorman Relationship Specialty Start Date End Date Jairo Bartlett DO [email or web address] PCP - General Internal Medicine 09/22/17 documented as of this encounter Additional Source Comments The information contained in this document represents components of the legal health record. It is not the complete legal health record.[facility]
== END ==
LOC: HO.CARD 07:40
PROVIDERS: PCP Internal Medicine; Visit Provider Internal Medicine Cardiovascular Disease
DX: I77.89 Other specified disorders of arteries and arterioles (principal)
CPT/HCPCS: 93306

== ENCOUNTER → 2025-06-10 07:43 | Outpatient (BNV) | payer MEDICARE, MEDICAID, SELFPAY | PROVIDERS: PCP Internal Medicine; Visit Provider Internal Medicine Cardiovascular Disease | DX: I77.810 Thoracic aortic ectasia (principal); I35.8 Other nonrheumatic aortic valve disorders; I34.89 Other nonrheumatic mitral valve disorders | CPT/HCPCS: 93306 ==

== ENCOUNTER 2025-06-18 08:16 | Outpatient (AMB) | payer MEDICARE, MEDICAID, SELFPAY ==
[2025-06-18 08:30] VITALS: BP 146/82; PULSE 49; BMI 34.2
--- NOTE | 2025-06-18 08:30 | A.OFFVIS_ITS ---
Vital Signs 06/18/25 08:30 Height 5 ft 9 in Weight 231 lb 7.766 oz BMI 34.2 BP 146/82 H Blood Pressure Location Lt brachial Position Sitting Pulse 49 L Intake Visit Reasons: 1 yr fu after echo Intake Note: 1 year follow-up with ekg after echo feelling good Nurses' Registry Director Required: No Bullet Swaging Machine Operator: Bullet Swaging Machine Operator Present Accompanied by: Spouse Allergies metronidazole (From Flagyl) Adverse Reaction (Intermediate, Verified 04/11/25 10:03) Confusion Medication List - Last Reconciled 06/18/25 by Eric Perkins MD albuterol sulfate 90 mcg/actuation 2 puffs inhalation Q4H PRN amlodipine 5 mg PO DAILY apixaban 5 mg PO BID atorvastatin 20 mg PO DAILY bupropion HCl SR 150 mg PO DAILY cholecalciferol (vitamin D3) 25 mcg PO DAILY lorazepam 0.5 mg PO BID PRN mecobalamin (vitamin B12) mcg PO omeprazole 20 mg PO DAILY propranolol ER 160 mg PO DAILY sildenafil 100 mg PO DAILY PRN tizanidine 4 mg PO BID HPI Comments Details: comes for follow-up of his atrial fibrillation and follow up echocardiogram. Overall he has been doing well. He denies any symptoms of atrial fibrillation. However he says symptoms of fatigue. He says his CPAP machine is working well. He is getting good treatment from it. His blood pressure sometimes at mid 130s. He said recently propranolol was increased. He denies any lightheadedness, syncope. Denies any shortness of breath, orthopnea, PND, leg edema. No bleeding issues or neurologic events. His echocardiogram shows normal LV ejection fraction with mildly enlarged thoracic aorta which is stable [facility] Medical History Hypoventilation associated with obesity Hypersomnia, unspecified PATTIE (obstructive sleep apnea) Obesity (BMI 30-39.9) Paroxysmal atrial fibrillation Anxiety and depression Hyperlipidemia Atrial fibrillation with rapid ventricular response Diverticulitis HTN (hypertension) Surgical History Hx of knee surgery Social History Household Members: Spouse Housing: House Do you presently have visiting nurse or other home services: No Alcohol intake: never Patient Tobacco Use Status: Former Tobacco user Years Smoked: 35 Substance Use Type: Marijuana service: No Review of Systems Const Denies chills, Denies fatigue, Denies fever(s), Denies frequent falls, Denies weakness, Denies weight gain and Denies weight loss ENT Denies dizziness Card Denies chest pain, Denies leg edema, Denies lightheadedness, Denies palpitations, Denies dyspnea, Denies dyspnea on exertion, Denies orthopnea and Denies other (loss of consciousness) Resp Denies cough, Denies dyspnea and Denies dyspnea on exertion GI Denies hematochezia and Denies change in stool character Musc Denies abnormal gait, Denies muscle weakness, Denies numbness, Denies radiating pain into limb and Denies tingling Neuro Denies abnormal gait, Denies dizziness, Denies frequent falls, Denies numbness, Denies tingling and Denies weakness Endo Denies fatigue and Denies palpitations Physical Exam Vital Signs: Last Vital Signs Pulse 49 L 06/18/25 08:30 BP 146/82 H 06/18/25 08:30 BMI result Body Mass Index 34.2 Const General: cooperative, comfortable, no acute distress, alert and awake Nutritional Appearance: obese Orientation/consciousness: patient oriented x3 Limitations: no limitations Neck Neck: Yes trachea midline, Yes supple and Yes no JVD Resp Effort & Inspection: normal respiratory effort Auscultation: clear to auscultation bilaterally Cardio Jugular venous distension: no JVD Palpation: normal PMI Rate: regular rate Rhythm: regular rhythm Heart sounds: S1 normal heart sound present and S2 normal heart sound present GI Auscultation: normal bowel sounds Skin General skin exam: no rashes or lesions noted Neuro General: patient oriented x3 and no focal motor deficits Extrem General: Yes no clubbing, cyanosis or edema Psych Appearance: grossly normal Office Procedures EKG Details: EKGs shows sinus bradycardia at 49 beats per minute otherwise normal EKGs [id number], Complete Assessment & Plan Assessment & Plan (1) Sinus bradycardia: Code(s): R00.1 - Bradycardia, unspecified Category: Medical Plan: Patient was sinus bradycardia due to dual therapy with Inderal at high dose as well as Multaq. Multaq is important medicine for him as it help manage his atrial fibrillation and will continue. Will taper down Inderal to 80 mg daily. Follow-up Holter monitor in a month's time. Most likely responsible for symptoms of fatigue due to chronotropic incompetence. (2) Paroxysmal atrial fibrillation: Code(s): I48.0 - Paroxysmal atrial fibrillation Category: Medical Plan: Paroxysmal atrial fibrillation has done well with rhythm control approach. Continue pursue rhythm control approach. Continue current Multaq therapy. Will need EKGs every 3 months. Avoidance of stimulants was discussed. Continue risk factor management including CPAP therapy for sleep apnea as well as aggressive blood pressure management. Encouraged to participate in weight loss program. Consider GLP 1 antagonist. (3) Enlarged thoracic aorta: Code(s): I77.89 - Other specified disorders of arteries and arterioles Category: Medical Plan: Enlarged thoracic aorta which has remained stable. Continue aggressive blood pressure control. Continue statin therapy with target goal LDL less than 100 mg/dL. (4) HTN (hypertension): Code(s): I10 - Essential (primary) hypertension Category: Medical Qualifiers: Hypertension type: essential hypertension Qualified Code(s): I10 - Essential (primary) hypertension Plan: Hypertension with borderline blood pressure control. Encouraged low-salt diet and increase activity level continue CPAP therapy. Will increase amlodipine to 10 mg daily as we are decreasing propranolol to 80 mg daily to counter blood pressure rise that might happen. Advised to continue monitor blood pressure at home maintain a log. Goal blood pressure less than 130/84. Follow up in the clinic in 3 months for EKG in 6 months with me. Thank you for allowing me to partake in his care Orders: Orders ECG holter monitor 48 hour 1 Month R00.1 - Bradycardia, unspecified Basic Metabolic Panel Today I48.0 - Paroxysmal atrial fibrillation Medications: New amlodipine 10 mg PO DAILY 30 tabs 5RF propranolol ER (Inderal [place]) 80 mg PO DAILY 30 caps 5RF Discontinued amlodipine Discontinued Reason: Doctor's Order 5 mg PO DAILY 30 tabs 0RF Coding Level of Care Code Est Pt Level 4 (39902) Diagnoses Sinus bradycardia R00.1 Paroxysmal atrial fibrillation I48.0 Enlarged thoracic aorta I77.89 Essential hypertension I10 Hypertension type: essential hypertension CPT Codes EKG - CPT: 80093-[id number], Complete ([id number])
--- OUTSIDE RECORDS SUMMARY | 2025-06-18 09:50 | XMS_ITS | Encounter Summary ---
Author Organization [facility] Address [address] [facility] [address] [place] [address] Phone Care Team Providers Care Operations Business Partner Name Role Phone Jairo Bartlett DO Primary Care Provider [phone] Encounter Details Date Type Department Care Team (Late st Contact Info) Description 09/22/2017 Procedure Pass [facility], Ct Scan - [address] [address] Social History Tobacco Use Types Packs/Day Years [...] on filedocumented in this encounter Care Teams Operations Business Partner Relationship Specialty Start Date End Date Jairo Bartlett DO PCP - General Internal Medicine 09/22/17 documented as of this encounter Additional Source Comments The information contained in this document represents components of the legal health record. It is not the complete legal health record.[facility]
--- OUTSIDE RECORDS SUMMARY | 2025-06-18 09:50 | XMS_ITS | Encounter Summary ---
Author Organization [facility] Address [address] [facility] [address] [place] [address] Phone Care Team Providers Care Hospitalist Nocturnist Physician Name Role Phone Jairo Bartlett DO Primary Care Provider Encounter Details Date Type Department Care Team ([facility] st Contact Info) Description 08/09/2018 Procedure Pass [facility] Endoscopy Admitting Dept Virtual Department [address] [place] [address] Social History Tobacco Use Types Packs/Day Years [...] on filedocumented in this encounter Care Teams Hospitalist Nocturnist Physician Relationship Specialty Start Date End Date Jaior Bartlett DO PCP - General Internal Medicine 09/22/17 documented as of this encounter Additional Source Comments The information contained in this document represents components of the legal health record. It is not the complete legal health record.[facility]
--- OUTSIDE RECORDS SUMMARY | 2025-06-18 09:50 | XMS_ITS | Clinical Summary ---
Author Organization [facility] Address [address] [place] [address] [place] [address] Phone Care Team Providers Care Manager Channel Name Role Phone Saturnino Nichole Primary Care Provider [phone] Allergies Active Allergy Reactions Criticality Noted Date [...] this topic Medical Devices Implanted Type Area Rn Security Device Identifier Shelf Expiration Date Model / [...] 63 Admit Type: Outpatient Gender: Male Room: [place] [address] Referring MD: SATURNINO NICHOLE DO Exam Type: [...] monitored continuously. The Olympus adult variable colonoscope [id number] #5 was introduced through the anus and [...] 8:03 AM Procedure Code(s): --- Professional --- 27421, Colonoscopy, flexible; with removal of tumor(s), polyp(s), or other lesion(s) by snare technique --- Technical --- 09202, Colonoscopy, flexible; with removal of tumor(s), polyp(s), [...] perforation orabscess without bleeding CPT copyright 2016 [employer]. All rights reserved. The codes documented in this report are preliminary and upon certified procedural coder reviewmay be revised to meet current compliance requirements. [address] [place] [address] us Saturnino A Bigda DO GI PROCEDURE ORDERABLES Final Re sult from Last 3 Months or Most Recently Relevant to Health Maintenance Insurance MEDICARE HMO BLUE REPLACEMENT MEDICARE HMO BLUE REPLACEMENT MEDICARE HMO BLUE REPLACEMENT MEDICARE HMO BLUE [place] [address] [address] [place] [address] MEDICARE HMO BLUE [place] [address] [address] [place] [address] MEDICARE HMO BLUE [place] [address] [address] [place] [address] MEDICARE HMO BL[place]AC[place] MED[place] H[place] BLUE REPLACEMENT MEDICARE HMO BLUE REPLACEMENT Care Teams Manager Channel Relationship Specialty Start Date End Date Saturnino Nichole DO [email or web address] PCP - General Internal Medicine 09/22/17 Additional Source Comments The information contained in this document represents components of the legal health record. It is not the complete legal health record.[facility]
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
--- OUTSIDE RECORDS SUMMARY | 2025-06-18 09:50 | XMS_ITS | Encounter Summary ---
Author Organization [facility] Address [address] [place] [address] [place] [address] Phone Care Team Providers Care Postal Delivery Officer Name Role Phone Jairo Bartlett Primary Care Provider [phone] Encounter Details Date Type Department Care Team (Late st Contact Info) Description 09/22/2017 Ancillary Orders Virtual Department [address] [place] [address] Shaista Birmingham, INSIDE PHONE SALES [address] [place] [address] Left upper quadrant pain Social History Tobacco [...] diverticulosis, diverticulitis POS - [id number] Shaista Birmingham INSIDE PHONE SALES IMG CT ABD/PELVIS Final Res ult documented in this encounter Visit Diagnoses Diagnosis Left upper quadrant pain Abdominal pain, left upper quadrant Left upper quadrant pain Abdominal pain, left upper quadrant documented in this encounter Care Teams Postal Delivery Officer Relationship Specialty Start Date End Date Jairo Bartlett DO [email or web address] PCP - General Internal Medicine 09/22/17 documented as of this encounter Additional Source Comments The information contained in this document represents components of the legal health record. It is not the complete legal health record.[facility]
--- OUTSIDE RECORDS SUMMARY | 2025-06-18 09:50 | XMS_ITS | Encounter Summary ---
Author Organization [facility] Address [address] [place] [address] [place] [address] Phone Care Team Providers Care Ui Programmer Name Role Phone Jairo Bartlett DO Primary Care Provider [phone] Encounter Details Date Type Department Care Team ([facility] st Contact Info) Description 06/09/2021 Ancillary Orders Virtual Department [address] [place] [address] Jairo Bartlett DO [address] [facility] [address] [email or web address] Encounter for screening for cardiovascular disorders Social [...] disorders documented in this encounter Care Teams Ui Programmer Relationship Specialty Start Date End Date Jairo Bartlett DO [email or web address] PCP - General Internal Medicine 09/22/17 documented as of this encounter Additional Source Comments The information contained in this document represents components of the legal health record. It is not the complete legal health record.[facility]
--- OUTSIDE RECORDS SUMMARY | 2025-06-18 09:51 | XMS_ITS | Encounter Summary ---
Author Organization [facility] Address [address] [facility] [address] [place] [address] Phone Care Team Providers Care Emergency Communications Dispatcher Name Role Phone Jairo Bartlett Primary Care Provider [phone] Encounter Details Date Type Department Care Team (Latest Contact Info) Description 02/19/2020 Transcribe Orders Virtual Department [address] [place] [address] Susana Beckford PA [address] [place] [address] [place] [address] Right knee pain, unspecified chronicity (Primary Dx) [...] chronicity documented in this encounter Care Teams Emergency Communications Dispatcher Relationship Specialty Start Date End Date Jairo Bartlett DO [email or web address] PCP - General Internal Medicine 09/22/17 documented as of this encounter Additional Source Comments The information contained in this document represents components of the legal health record. It is not the complete legal health record.[facility]
--- OUTSIDE RECORDS SUMMARY | 2025-06-18 09:51 | XMS_ITS | Encounter Summary ---
Author Organization [facility] Address [address] [place] [address] Phone Care Team Providers Care Extruding Press Operator Name Role Phone Jairo Bartlett DO Primary Care Provider [phone] Encounter Details Date Type Department Care Team ([facility] st Contact Info) Description 05/11/2022 Transcribe Orders Virtual Department 30 [place] [address] Jairo Bartlett DO [address] [facility] [place] [address] [email or web address] Right knee pain, unspecified chronicity (Primary Dx) [...] Primary documented in this encounter Care Teams Extruding Press Operator Relationship Specialty Start Date End Date Jairo Bartlett DO [email or web address] PCP - General Internal Medicine 09/22/17 documented as of this encounter Additional Source Comments The information contained in this document represents components of the legal health record. It is not the complete legal health record.[facility]
--- OUTSIDE RECORDS SUMMARY | 2025-06-18 09:51 | XMS_ITS | Encounter Summary ---
Author Organization [facility] Address [address] [place] [address] [place] [address] Phone Care Team Providers Care Oil Refiner Name Role Phone Jairo Bartlett DO Primary Care Provider Encounter Details Date Type Department Care Team (Late st Contact Info) Description 11/07/2017 Ancillary Orders Virtual Department [address] [place] [address] Shaista Birmingham, COOK HELPER [employer]ERVES [address] [place] [address] [email or web address] Acute bronchitis, unspecified organism Social History Tobacco [...] Acute bronchitis POS - [id number] Shaista Birmingham COOK HELPER PRESERVES IMG XR CHEST Final Resul t documented in this encounter Visit Diagnoses Diagnosis Acute bronchitis, unspecified organism Acute bronchitis, unspecified organism documented in this encounter Care Teams Oil Refiner Relationship Specialty Start Date End Date Jairo Bartlett DO [email or web address] PCP - General Internal Medicine 09/22/17 documented as of this encounter Additional Source Comments The information contained in this document represents components of the legal health record. It is not the complete legal health record.[facility]
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
--- OUTSIDE RECORDS SUMMARY | 2025-06-18 09:51 | XMS_ITS | Encounter Summary ---
Author Organization [facility] Address [address] [address] Phone Care Team Providers Care Renovation Plant Supervisor Name Role Phone Jairo Bartlett DO Primary Care Provider [phone] Encounter Details Date Type Department Care Team ([facility] st Contact Info) Description 05/27/2021 Transcribe Orders Virtual Department [address] [place] [address] Jairo Bartlett DO [address] [facility] [place] [address] [email or web address] Encounter for screening for cardiovascular disorders (Primary [...] Primary documented in this encounter Care Teams Renovation Plant Supervisor Relationship Specialty Start Date End Date Jairo Bartlett DO [email or web address] PCP - General Internal Medicine 09/22/17 documented as of this encounter Additional Source Comments The information contained in this document represents components of the legal health record. It is not the complete legal health record.[facility]
== END 2025-06-18 08:50 | disposition home or self-care (01) ==
LOC: HO.HCS 08:16
PROVIDERS: PCP Internal Medicine; Visit Provider Internal Medicine Cardiovascular Disease
DX: R00.1 Bradycardia, unspecified (principal); I48.0 Paroxysmal atrial fibrillation; I77.89 Other specified disorders of arteries and arterioles; I10 Essential (primary) hypertension
CPT/HCPCS: 93010; 99214

== ENCOUNTER → 2025-06-18 08:16 | Outpatient (BNVA) | payer MEDICARE, MEDICAID, SELFPAY | PROVIDERS: PCP Internal Medicine; Visit Provider Internal Medicine Cardiovascular Disease | DX: I48.0 Paroxysmal atrial fibrillation (principal); I77.89 Other specified disorders of arteries and arterioles; R00.1 Bradycardia, unspecified; I10 Essential (primary) hypertension; Z79.899 Other long term (current) drug therapy; Z99.89 Dependence on other enabling machines and devices; Z87.891 Personal history of nicotine dependence | CPT/HCPCS: 93005; 99212 ==